=== PATIENT | female | born 1985 | race Caucasian/White ===

== ENCOUNTER 2017-11-27 04:31 | Inpatient (IN) | payer BC, SELFPAY ==
[2017-11-27] VITALS (14 sets, daily range): BP systolic 124–142; BP diastolic 74–94; PULSE 76–98; RESP 16–80; TEMP 36.6–37.3; O2SAT 95–100; BMI 40.1
[2017-11-27] MEDS: Lactated Ringers 1,000 ML 50 ML IV ×4 (05:15→14:04)
[2017-11-27 06:09] LABS: Hematocrit 37.7 % (37-47); Hemoglobin 12.6 g/dl (12.0-15.0); Mean Corp Hgb Conc 33.4 g/gl (32-36); Mean Corpuscular Hgb 30.4 pg (27.0-32.0); Mean Corpuscular Volume 91.1 fL (81-99); Mean Platelet Vol. 10.2 fl (6.2-12.0); Platelet Count 263 K/mm3 (150-450); RBC Distribution Width CV 14.8 % (11.6-14.6); RBC Distribution Width SD 49.1 fl (35.1-43.9); Red Blood Count 4.14 M/mm3 (4.2-5.4); White Blood Count 11.4 K/mm3 (4.4-11.0)
[2017-11-27 06:24] LABS: Scan Indicated on CBC? Y/N NO
[2017-11-27 07:34] LABS: Partial Thromboplast Time 28.8 Seconds (24.1-36.2)
[2017-11-27 07:42] LABS: AST(SGOT) 13 U/L (15-37); Alanine Aminotransfer ALT/SGPT 22 U/L (13-56); Creatinine, Serum 0.56 mg/dL (0.55-1.02); EST Glomerular Filtration Rate 133 mL/min (>60); Est Glom Filt Rate - Afr Amer 161 mL/min (>60); Estimated Creatinine Clearance 130.98 ml/min; Uric Acid 4.5 mg/dL (2.6-6.0)
[2017-11-27 08:23] LABS: Protein, Urine (Random) 22.3 mg/dL (<11.9); Protein:Creat Ratio 183 mg/g CRE (0-200)
[2017-11-27] MEDS: fentaNYL-bupivacaine (epidural) 100 ML BAG EPIDURAL ×2 (09:15→13:30)
--- NOTE | 2017-11-27 09:31 | PCM.HP.OB ---
History Date of Admission: 11/27/17 Final FIDEL: 11/22/17 Final FIDEL Source: US <20 weeks Gestational age: 40 Weeks and 5 Days History of this : 32-year-old 4 para 0030 presents at 40-5/7 weeks gestation with EDC of 317 2018 x 14 week ultrasound alone. She presents complaining of contractions starting yesterday, they got worse in the middle night she arrived to labor and delivery and was found to change from 4-5 cm. Has had no gross leaking of fluid she has had some bloody show. Headache, visual changes or epigastric pain. Past surgical history: D&C OB hx- 1 previous SAB, 2 terminations Medical history: Significant for morbid obesity with BMI of 40. Allergies No Known Allergies Allergy (Verified 11/27/17 03:58) Current Medications Acetaminophen (Tylenol) 325 - 650 mg PO Q4H PRN PRN PRN Reason: PAIN OR FEVER >100.4F Al Hydroxide/Mg Hydroxide (Mylanta Ii) 15 - 30 ml PO Q4H PRN PRN PRN Reason: INDIGESTION Calcium Gluconate () 1 gm IV X1 PRN PRN Reason: MAGNESIUM TOXICITY Citric Acid/Sodium Citrate (Bicitra) 30 ml PO UD PRN Hydralazine HCl (Apresoline Iv) 10 mg IV X1 PRN; Protocol PRN Reason: BP>160/110mmHg Lactated Ringer's () 1,000 mls @ 50 mls/hr IV .Q20H [facility] Last Admin: 11/27/17 06:47 Dose: 50 mls/hr Oxytocin/Sodium Chloride () 30 units in 500 mls @ 1 mls/hr IV .Q500H [facility] Labetalol HCl (Trandate) 20 - 40 mg IV Q10M PRN PRN; Protocol PRN Reason: BP>160/110mmHg Last Admin: 11/27/17 06:29 Dose: 20 mg Magnesium Sulfate (4 Gm/100 Ml) 2 gm IV X1 PRN PRN Reason: SEIZURE Midazolam HCl (Versed) 2 mg IV Q5M PRN PRN Reason: SEIZURE Nalbuphine HCl (Nubain) 5 - 10 mg IV Q3H PRN PRN PRN Reason: PAIN (4-10/10) Ondansetron HCl (Zofran) 4 mg IV Q8H PRN PRN PRN Reason: NAUSEA Promethazine HCl (Phenergan Iv) 6.25 - 12.5 mg IV Q4H PRN PRN; Protocol PRN Reason: IF NAUSEA PERSISTS Sodium Chloride () 5 - 15 ml IV UD [facility] Last Admin: 11/27/17 08:09 Dose: Not Given Smoking Status: Never smoker Alcohol: None Drug Use: none Number of Fetus(es): 1 Review of Systems Constitutional: Denies: Chills, Fever Eyes: Denies: Blurred vision Cardiovascular: Reports: Edema Respiratory: Denies: Shortness of Breath Skin: Reports: Rash Neurological: Denies: Headaches Physical Exam General: Alert, Cooperative, No apparent distress Cardiovascular: Regular rate Lungs: Normal air movement Abdomen: Soft, Non-Distended, Gravid, Appropriate for Gestational Age Extremities:: Other - edema2+ Estimated gestational size: Appropriate for gestational size Presentation: Cephalic Cervix Dilation (cm): 5 - , AROM w/ thick MSF Station: -1 Effacement (%): 90 Assessment/Plan 32-year-old 4 para 0 female at 40-5/7 weeks gestation in spontaneous labor 1. Estimated weight is less than 5000 g and pelvis clinically adequate to expect vaginal delivery. 2. May have epidural or nitrous oxide as needed for pain control. 3.Meconium stained fluid, pediatrics will be consulted for delivery attendance 4. Pitocin augmentation as needed
--- NOTE | 2017-11-27 09:38 | HP.PCM_ITS ---
History Date of Admission: 11/27/17 Final FIDEL: 11/22/17 Final FIDEL Source: US <20 weeks Gestational age: 40 Weeks and 5 Days History of this : 32-year-old 4 para 0030 presents at 40-5/7 weeks gestation with EDC of 317 2018 x 14 week ultrasound alone. She presents complaining of contractions starting yesterday, they got worse in the middle night she arrived to labor and delivery and was found to change from 4-5 cm. Has had no gross leaking of fluid she has had some bloody show. Headache, visual changes or epigastric pain. Past surgical history: D&C OB hx- 1 previous SAB, 2 terminations Medical history: Significant for morbid obesity with BMI of 40. Allergies No Known Allergies Allergy (Verified 11/27/17 03:58) Current Medications Acetaminophen (Tylenol) 325 - 650 mg PO Q4H PRN PRN PRN Reason: PAIN OR FEVER >100.4F Al Hydroxide/Mg Hydroxide (Mylanta Ii) 15 - 30 ml PO Q4H PRN PRN PRN Reason: INDIGESTION Calcium Gluconate () 1 gm IV X1 PRN PRN Reason: MAGNESIUM TOXICITY Citric Acid/Sodium Citrate (Bicitra) 30 ml PO UD PRN Hydralazine HCl (Apresoline Iv) 10 mg IV X1 PRN; Protocol PRN Reason: BP>160/110mmHg Lactated Ringer's () 1,000 mls @ 50 mls/hr IV .Q20H [facility] Last Admin: 11/27/17 06:47 Dose: 50 mls/hr Oxytocin/Sodium Chloride () 30 units in 500 mls @ 1 mls/hr IV .Q500H [facility] Labetalol HCl (Trandate) 20 - 40 mg IV Q10M PRN PRN; Protocol PRN Reason: BP>160/110mmHg Last Admin: 11/27/17 06:29 Dose: 20 mg Magnesium Sulfate (4 Gm/100 Ml) 2 gm IV X1 PRN PRN Reason: SEIZURE Midazolam HCl (Versed) 2 mg IV Q5M PRN PRN Reason: SEIZURE Nalbuphine HCl (Nubain) 5 - 10 mg IV Q3H PRN PRN PRN Reason: PAIN (4-10/10) Ondansetron HCl (Zofran) 4 mg IV Q8H PRN PRN PRN Reason: NAUSEA Promethazine HCl (Phenergan Iv) 6.25 - 12.5 mg IV Q4H PRN PRN; Protocol PRN Reason: IF NAUSEA PERSISTS Sodium Chloride () 5 - 15 ml IV UD [facility] Last Admin: 11/27/17 08:09 Dose: Not Given Smoking Status: Never smoker Alcohol: None Drug Use: none Number of Fetus(es): 1 Review of Systems Constitutional: Denies: Chills, Fever Eyes: Denies: Blurred vision Cardiovascular: Reports: Edema Respiratory: Denies: Shortness of Breath Skin: Reports: Rash Neurological: Denies: Headaches Physical Exam General: Alert, Cooperative, No apparent distress Cardiovascular: Regular rate Lungs: Normal air movement Abdomen: Soft, Non-Distended, Gravid, Appropriate for Gestational Age Extremities:: Other - edema2+ Estimated gestational size: Appropriate for gestational size Presentation: Cephalic Cervix Dilation (cm): 5 - , AROM w/ thick MSF Station: -1 Effacement (%): 90 Assessment/Plan 32-year-old 4 para 0 female at 40-5/7 weeks gestation in spontaneous labor 1. Estimated weight is less than 5000 g and pelvis clinically adequate to expect vaginal delivery. 2. May have epidural or nitrous oxide as needed for pain control. 3.Meconium stained fluid, pediatrics will be consulted for delivery attendance 4. Pitocin augmentation as needed
--- NOTE | 2017-11-27 09:51 | NURSING ---
after 3 attempts, Dr. Al in to place epidural. KParalissa, anesthesia student from [facility] also in
[2017-11-27] MEDS: Oxytocin 30 units/NS 500 ml 30 UNITS/500 ML IV.SOLN IV (09:58)
[2017-11-27] MEDS: Amnioinfusion- 0.9% NS 1,000 ML IV.SOLN. 100 ML INTRA-UTER (10:20)
[2017-11-27] MEDS: Sodium Citrate/Citric Acid 30 ML UDC PO (18:02)
[2017-11-27] MEDS: Cefazolin 2 GM in 0.9% Normal Saline 100 ML IV (18:15)
[2017-11-27] MEDS: Oxytocin 30 units/NS 500 ml 30 UNITS/500 ML IV.SOLN 167 UNITS IV (18:36)
[2017-11-27] MEDS: Ketorolac 30 MG/ML Syringe IV (18:45)
--- NOTE | 2017-11-27 19:12 | PCM.OB.CSR ---
Delivery Classification: SABRINA Final FIDEL: 11/22/17 Final FIDEL Source: US <20 weeks Gestational age: 40 Weeks and 5 Days Indications for : - - protractive active phase of labor, category 2 tracing remote from delivery Description of Procedure: Patient arrived in labor this morning. She had artificial rupture of membranes with return of thick meconium-stained fluid. Had inadequate contractions and Pitocin augmentation was initiated. However we had to intermittently stop the Pitocin due human resources assistant manager variable and late decelerations. Amnioinfusion was started for variable decelerations. She made minimal change from 930 until 5:30 PM and progressed from 4-5 cm to 6 cm. Significant edema of the cervix and significant caput. Position was ROT. I discussed with the patient options of continuing expectant management versus section. Attractive active labor phase and persistent category 2 tracing remote from delivery at this point, I recommended section. I did give the patient the option of waiting another hour or so and reevaluating as she was somewhat anxious about a . Patient desired to proceed with section at this time. The patient was taken to the operating room. She was prepped and draped in the dorsal supine position with a leftward tilt. A Pfannenstiel skin incision was made approximately 2 cm above the symphysis pubis and carried through to underlying layer fascia with the scalpel. The fascia was incised incised in the midline and extended laterally with the Patel scissors. The fascia was dissected off the rectus muscles with blunt and sharp dissection. The rectus muscles were in the midline and the peritoneum was entered bluntly. The peritoneal incision was stretched and the bladder blade was placed. The uterine incision was made in a low transverse fashion with the scalpel and extended superiorly and inferiorly with blunt dissection. The amniotic drains were ruptured with return of meconium-stained fluid.. The infant's head was brought to the incision in the flexed position and delivered without difficulty. The remainder of the was delivered with gentle traction and fundal pressure in the standard fashion. The mouth and nares were bulb suctioned. The cord was clamped and cut as the infant was stimulated. Cord clamping was delayed. The was handed off to the waiting nursing staff. The placenta was delivered with fundal massage and gentle traction in the standard fashion. The uterus was exteriorized and cleared of all clots and debris. The uterine incision was closed with #1 Vicryl in a running locked fashion. A second layer of the same suture was used in an imbricating fashion and the incision was examined for hemostasis. Urate suture was needed near the midline and in the right corner to obtain hemostasis Some bleeding along the medial edge with Bovie cauterized. Some Roger was placed over the incision and then excellent hemostasis was noted. The uterus was placed back into the peritoneal cavity and hemostasis was assured. The rectus muscles were examined and any bleeding was Bovie cauterized. The parietal peritoneum and rectus muscles were closed en bloc with an 0 Vicryl suture in a running standard fashion. The rectus fascia was examined and the bleeding was Bovie cauterized and the rectus fascia was closed with 0 PDS suture in a running standard fashion. The subcutaneous tissue was examining and any bleeding was Bovie cauterized. The subcutaneous tissue was reapproximated with 3-0 Vicryl suture. The skin was closed in a subcuticular fashion by the COMPRESSOR OPERATOR PORTABLE with me present in the labor and delivery suite. All sponge, lap, and needle counts were correct. The patient was taken to her room for recovery in a stable condition. Amniotic Membrane Rupture Type: Artificial Amniotic Fluid Description: Thick meconium Placenta Disposition: Sent to Pathology Drain: Oilvier to straight drain Fluids Replaced: 500 cc LR Cord Entanglement: Around neck x 1, loose Nuchal Cord Compression: Without compression Cord Vessel Description: 3 Vessels Esitmated Blood Loss (ml): 800 Gender: Female Delayed cord clamping: Yes Pre-op Antibiotic Given: - - zithromax 500 mg Complications: None - Admit VTE Documentation VTE Present on Admission: No VTE Mechan Device Prophylaxis: SCD's VTE Pharm Prophylaxis ordered?: Yes
[2017-11-27] MEDS: Lactated Ringers 1,000 ML 100 ML IV (19:20)
--- NOTE | 2017-11-27 19:21 | PLAC_PTH ---
PATIENT: MASOUD HINSON LOC: [facility] U#:[id number] AGE/SX: 32/F ROOM: WP007 RE11/27/[address]: Dr. Minnie Corral, MDDOB: 1985 BED: 1 DIS: 11/30/2017 SPEC #: [id number] RECD: 11/27/17 22:47 STATUS: ANÍBAL VIRY #: [id number] LOTTIE: 11/27/17 19:[address]: Minnie Corral DEPT: SURGICAL PATHOLOGY RECD BY: Daquan Hernandez ENTERED: 11/28/17 09:03 SP TYPE: PLACENTA OTHR DR: No Primary Care Phys Tissues: Placenta, NOS Procedures: Surgery Specimen Level V HEADER OPERATION: Primary section PRE-OP DIAGNOSIS: meconium stained fluid TISSUE SUBMITTED: Placenta MICROSCOPIC DIAGNOSIS Placenta: Placental disc - third trimester placenta (574 gm). - Focal area of intraparenchymal hemorrhage (1.5 cm in greatest dimension). - Focal mild acute vasculitis of subamniotic blood vessels. Membranes ? acute chorioamnionitis. Umbilical cord - three blood vessels and acute funisitis. SJ:nicki 12/02/17 MICROSCOPIC DESCRIPTION Slides are reviewed. GROSS DESCRIPTION SPECIMEN: PLACENTA / CLINICAL INFORMATION: A. Weight: 3.196 kg B. Gestational Age: 40 weeks C. Sex: Female PLACENTAL WEIGHT (POST FIXATION): 574 gm PLACENTAL DIMENSIONS: 18 x 16 x 3.5 cm PLACENTAL SHAPE: Usual ovoid PLACENTAL WEIGHT FOR GESTATIONAL AGE: Within 10-99th percentile MEMBRANES - Present A. Insertion: Marginal B. Site of rupture from edge: 5 cm from edge of placental disc. They are partly fragmented. A detached fragment of the membrane is also present in the container. C. Color of membrane: Das, mucoidy D. Abnormalities: None UMBILICAL CORD - Present A. Color: Das-rooney B. Insertion: Marginal C. Length: 33 cm D. Diameter: 1 to 1.3 cm E. Number of vessels: Three F. Abnormalities: None PLACENTAL DISC - Present A. Color of surface: Das-rooney B. surface abnormalities: None C. Maternal cotyledons: Intact with minimal tears D. Attached retro placental clot: No clot E. Cut surface: Dark red and spongy F. Lesions: Serial sections reveal a das, hemorrhagic lesion measuring 1.5 cm in greatest dimension. G. Separate clot: Absent SECTIONS SUBMITTED: 1. Membrane roll 2. Cord, maternal end 3. Cord, end 4. Placental disc, and maternal surfaces, lesion 5. Placental disc, and maternal surfaces 6. Placental disc, and maternal surfaces CYNTHIA:nicki 12/01/17 TC:2 CPT: 67975
--- NOTE | 2017-11-27 20:33 | NURSING ---
Verified with brett that pt. will need RhoGAM work-up - will draw in am with CBC
[2017-11-27] MEDS: Labetalol 100 MG Tablet PO (23:20)
[2017-11-27] MEDS: Senna/Docusate Sodium 1 Tablet PO (23:21)
[2017-11-28] VITALS (15 sets, daily range): BP systolic 123–135; BP diastolic 77–88; PULSE 80–110; RESP 16–20; TEMP 36.7–37.3; O2SAT 92–100
[2017-11-28] MEDS: Ketorolac 30 MG/ML Syringe IV ×5 (00:26→23:28)
[2017-11-28] MEDS: Lactated Ringers 1,000 ML 100 ML IV ×2 (01:48→11:42)
[2017-11-28 05:07] LABS: Hematocrit 32.5 % (37-47); Mean Corp Hgb Conc 33.8 g/gl (32-36); Mean Corpuscular Hgb 31.3 pg (27.0-32.0); Mean Corpuscular Volume 92.6 fL (81-99); Mean Platelet Vol. 9.9 fl (6.2-12.0); Platelet Count 189 K/mm3 (150-450); RBC Distribution Width CV 14.9 % (11.6-14.6); RBC Distribution Width SD 49.1 fl (35.1-43.9); Red Blood Count 3.51 M/mm3 (4.2-5.4); White Blood Count 14.4 K/mm3 (4.4-11.0)
[2017-11-28 05:09] LABS: Scan Indicated on CBC? Y/N NO
[2017-11-28] MEDS: Enoxaparin 40 MG/0.4 ML Syringe SC (06:03)
--- NOTE | 2017-11-28 07:02 | NURSING ---
This RN agrees with all charting done by Terrance student nurse.
--- NOTE | 2017-11-28 09:06 | PCM.PN.OB ---
Subjective: pain well controlled, average lochia, no N/V, denies LIU or visual changes or epigastric pain - Physical Exam General: Alert, Cooperative, No apparent distress Abdomen: Soft, Distended - mildly, softly1, Tender - appropriately Extremities: Edema - +, - - 2+ DTRs, no clonus Skin: Incision - bandage clean, dry and intact Vital Signs Temp Pulse Resp BP Pulse Ox 98.1 F 98 16 124/82 H 97 11/28/17 08:00 11/28/17 08:00 11/28/17 08:00 11/28/17 08:00 11/28/17 08:00 Oxygen Delivery Method Room Air Weight: 109.316 kg Body Mass Index (BMI) 40.1 Intake and Output for Last 24 Hours 11/26/17 11/27/17 11/28/17 23:59 23:59 23:59 Intake Total 5340 / 5340 1348 / 1348 Output Total 1600 / 1600 550 / 550 Balance 3740 / 3740 798 / 798 Laboratory Tests Past 24 Hrs 11/28/17 11/28/17 04:50 04:50 WBC 14.4 H RBC 3.51 L Hgb 11.0 L Hct 32.5 L MCV 92.6 MCH 31.3 MCHC 33.8 RDW 14.9 H RDW Differential 49.1 H Plt Count 189 MPV 9.9 Screen NEGATIVE Baby's Blood Type O POSITIVE Baby's MIRA NEGATIVE Medical Necessity - Tobacco Use Smoking Status: Never smoker Assessment/Plan POD#1 doing well routine care and doing well BP stable, no evidence of preeclampsia, d/c labetalol in am
--- NOTE | 2017-11-28 09:12 | DCINST_ITS ---
Discharge Diet: No Restrictions Discharge Activity: Return to Normal Activity, May Not Drive - for 2 weeks, May not drive while taking narcotic pain medications., May Shower, May Take a Tub Bath - in 7 days. May resume sexual activity in: 4-6 weeks Lifting Restrictions: 20 pounds Additional Activity Instructions:: Nothing in the vagina for 4-6 weeks. You may return to work/school in 6 weeks. Call your doctor if your incision/area has: Continuous Slow Oozing, Sudden Increased Bleeding, Increased Pain/ Swelling, Increased Redness, Foul Smelling Discharge Call your doctor if you observe: Fever of 101 or Higher, Using more than one pad per hour - for 2 hours Suture Line Care: Avoid Pulling/Pushing, Avoid Pinching/Bending Cleanse incision/area with: Keep Dressing Clean & Dry Additional Instructions: If you experience any of the following, contact your healthcare provider. * Bleeding that soaks a pad every hour for 2 hours * Fever 100.4 or higher * Unrelieved incision or abdominal pain * Swelling, redness, discharge or bleeding from your incision or episiotomy site * Your incision begins to separate * Problems urinating (including inability to urinate or burning while urinating) . * Visual changes * Severe headache * Flu-like symptoms * Pain or redness in one of both of your breasts * Pain, warmth, tenderness or swelling in your legs, especially the calf area * Frequent nausea and vomiting * Symptoms of depression or anxiety If you experience any of the following, call 911 or go to the nearest Emergency Room. * Chest pain * Problems breathing * Seizure activity * Partial or complete paralysis of a body part, slurred speech, weakness or drooping of the face, or a sudden inability to walk or hold your balance Allergies/Adverse Reactions: Allergies No Known Allergies Allergy (Verified 11/27/17 03:58) Medications to take at Discharge Vit No.130/Iron/FA [ Tablet] 1 tablet PO DAILY 11/27/17 Ibuprofen [Motrin] 600 mg PO Q6H PRN #60 tab 11/28/17 Oxycodone HCl/Acetaminophen [Percocet 5/325] 1 - 2 tablet PO Q6H PRN PRN 7 Days #28 tablet 11/28/17 The following prescriptions were given: Oxycodone HCl/Acetaminophen [Percocet 5/325] 1 - 2 tablet PO Q6H PRN PRN 7 Days #28 tablet PRN Reason: Pain Ibuprofen [Motrin] 600 mg PO Q6H PRN #60 tab PRN Reason: Pain Orders to be completed after discharge: Electric breast pump Location: None Selected Follow-Up: Call to make an appointment with your doctor for an incision check in 1-2 weeks. You will also need a 6 week post- follow up appointment. Please Follow Up With: Shanika Avalos MD - Call to make an appointment for an incision check in 1-2 [phone] When: You will need a post check in our office in 6 weeks. Primary Care Physician: Care Physician,No Primary [Primary Care Provider] -
[2017-11-28] MEDS: Labetalol 100 MG Tablet PO ×2 (10:25→21:20)
[2017-11-28] MEDS: Senna/Docusate Sodium 1 Tablet PO ×2 (10:25→21:20)
[2017-11-28] MEDS: 0.9% Saline Lock 10 ML Syringe IV ×2 (18:00→23:28)
[2017-11-28] MEDS: oxyCODONE 5 MG Tablet PO (18:30)
[2017-11-29 01:07] VITALS: BP 135/86; PULSE 80; RESP 16; TEMP 36.5; O2SAT 99
[2017-11-29] MEDS: 0.9% Saline Lock 10 ML Syringe IV (06:07)
[2017-11-29] MEDS: Enoxaparin 40 MG/0.4 ML Syringe SC (06:07)
[2017-11-29] MEDS: Ketorolac 30 MG/ML Syringe IV (06:07)
[2017-11-29 07:40] VITALS: BP 126/80; PULSE 91; RESP 16; TEMP 36.4; O2SAT 96
[2017-11-29 09:37] VITALS: BP 119/80
[2017-11-29] MEDS: Senna/Docusate Sodium 1 Tablet PO (09:39)
[2017-11-29] MEDS: oxyCODONE 5 MG Tablet PO (09:40)
[2017-11-29] MEDS: Labetalol 100 MG Tablet PO ×2 (09:55→22:02)
--- NOTE | 2017-11-29 13:55 | PCM.PN.BLA ---
Progress Note S: Patient was sitting up in rocking chair infant at this time. Patient denies any any breakthrough incisional pain and feels like her pain is well controlled. Patient's family is in the room providing support. O: VSS, Afebrile. H/H from 11/28/ = 11.0/32.5 Breasts filling, no cracks or blisters on nipples noted. No breast erythema noted. Abdomen NT x 4 quadrants, Dressing Dry and Intact Trace pedal edema, non-pitting, calf tenderness scant rubra lochia A: 32 y/o POD #2, s/p LTCS for arrest of dilation, Normal Course, P: 1) Continue present management and PP orders at this time 2) Anticipate discharge to home tomorrow Celina Connell CNM
[2017-11-29 13:58] VITALS: BP 135/87; PULSE 101; RESP 16; TEMP 36.4; O2SAT 97
[2017-11-29] MEDS: Naproxen 250 MG Tablet PO (17:48)
[2017-11-29 20:30] VITALS: BP 126/85; PULSE 107; RESP 18; TEMP 37.3; O2SAT 97
[2017-11-30 01:50] VITALS: BP 127/88; PULSE 85; RESP 16; TEMP 36.4; O2SAT 97
[2017-11-30] MEDS: Enoxaparin 40 MG/0.4 ML Syringe SC (06:30)
[2017-11-30 07:45] VITALS: BP 135/83; PULSE 78; RESP 18; TEMP 36.3; O2SAT 97
[2017-11-30] MEDS: Naproxen 250 MG Tablet PO (08:10)
[2017-11-30 10:10] VITALS: BP 128/83
[2017-11-30] MEDS: Labetalol 100 MG Tablet PO (10:11)
--- NOTE | 2017-11-30 10:22 | PCM.PN.BLA ---
Progress Note S: Patient sitting up in bed, finishing breakfast. Patient reports she was up to shower yesterday. No problems or concerns noted by patient. Per nursing staff, patient has continued to take Labetalol 100mg PO BID. Patient's blood pressures upper normal range while on Labetalol medication. O: BP = 120-134/80s, remainder of VSS WNL. Patient remains afebrile. Nipples without cracks, blisters or any erythema. +colostrum expressed Abdomen NT x 4 quadrants, dressing dry and intact. No further blood or exudate noted on dressing +2/4 reflexes in LE, no edema, negative calf tenderness to palpation scant rubra lochia A: 32 y/o s/p LTCS without complications for arrest of dilation, POD#3, Normal course, Controlled HTN P:1) Discharge patient to home on Labetalol 100mg PO BID #30 pills, no refills. Will assess patient at incision check visit and make decision to D/C Labetalol at that time if patient blood pressures remain normotensive. 2) Blood pressure with incision check in 1-2 weeks 3) Anticipatory PP health teaching done 4) 6 week PP visit with [facility] Celina Connell CNM
--- NOTE | 2017-11-30 10:30 | PN_ITS ---
Progress Note S: Patient sitting up in bed, finishing breakfast. Patient reports she was up to shower yesterday. No problems or concerns noted by patient. Per nursing staff , patient has continued to take Labetalol 100mg PO BID. Patient's blood pressures upper normal range while on Labetalol medication. O: BP = 120-134/80s, remainder of VSS WNL. Patient remains afebrile. Nipples without cracks, blisters or any erythema. +colostrum expressed Abdomen NT x 4 quadrants, dressing dry and intact. No further blood or exudate noted on dressing +2/4 reflexes in LE, no edema, negative calf tenderness to palpation scant rubra lochia A: 32 y/o s/p LTCS without complications for arrest of dilation, POD#3, Normal course, Controlled HTN P:1) Discharge patient to home on Labetalol 100mg PO BID #30 pills, no refills. Will assess patient at incision check visit and make decision to D/C Labetalol at that time if patient blood pressures remain normotensive. 2) Blood pressure with incision check in 1-2 weeks 3) Anticipatory PP health teaching done 4) 6 week PP visit with [facility] Celina Connell CNM
--- NOTE | 2017-11-30 10:31 | PCM.DC.SUM ---
Discharge Date and Diagnosis - Problem List Patient Problems: Active and Suspected Problems Hypertension affecting , delivered, current hospitalization (Acute) Date of Admission: 11/27/17 Date of Discharge: 11/30/17 - Primary Discharge Diagnosis POD #3 s/p LTCS for Arrest of Dilation in Labor, Hypertension - controlled, Normal Course Hospital Course and Treatment Imaging Results: none None Operations: - - Ceasrean Section Procedures: None Summary of Care Provided: The patient is a 32 year old F who presented in labor on 11/27/17. Patient progressed slowly and decision for primary LTCS made secondary to arrest of dilation, category II FHT and meconium stained fluid. During course of labor, patient was found to have elevated blood pressures. Pre-Eclampsia was ruled out but patient received course of labetalol for stabilize blood pressures. section surgery was done without complication. Patient to be discharged today following a stable and normal course. Discharge Diet: No Restrictions Discharge Activity: Return to Normal Activity, May Not Drive - for 2 weeks, May not drive while taking narcotic pain medications., May Shower, May Take a Tub Bath - in 7 days. May resume sexual activity in: 4-6 weeks Additional Activity Instructions:: Nothing in the vagina for 4-6 weeks. You may return to work/school in 6 weeks. Call your doctor if your incision/area has: Continuous Slow Oozing, Sudden Increased Bleeding, Increased Pain/ Swelling, Increased Redness, Foul Smelling Discharge Call your doctor if you observe: Fever of 101 or Higher, Using more than one pad per hour - for 2 hours Suture Line Care: Avoid Pulling/Pushing, Avoid Pinching/Bending Cleanse incision/area with: Keep Dressing Clean & Dry Home Medications: Medications to take at Discharge Vit No.130/Iron/FA [ Tablet] 1 tablet PO DAILY 11/27/17 Ibuprofen [Motrin] 600 mg PO Q6H PRN #60 tab 11/28/17 Oxycodone HCl/Acetaminophen [Percocet 5/325] 1 - 2 tablet PO Q6H PRN PRN 7 Days #28 tablet 11/28/17 Labetalol [Trandate (Beta Margarita)] 100 mg PO BID #30 tab 11/30/17 Following Prescrptions Were Given to Patient: Oxycodone HCl/Acetaminophen [Percocet 5/325] 1 - 2 tablet PO Q6H PRN PRN 7 Days #28 tablet PRN Reason: Pain Labetalol [Trandate (Beta Margarita)] 100 mg PO BID #30 tab Ibuprofen [Motrin] 600 mg PO Q6H PRN #60 tab PRN Reason: Pain Other Amb Orders: Electric breast pump Location: None Selected Primary Care Physician: Care Physician,No Primary [Primary Care Provider] - Please Follow Up With: Shanika Avalos MD - Call to make an appointment for an incision check in 1-2 [phone] When: You will need a post check in our office in 6 weeks. Please Follow Up With: Shanika Avalos MD - Call to make appointment When: 1-2 weeks for BP and Incision Check Disposition: Home Patient Condition:: Good Medical Necessity - Tobacco Use Smoking Status: Never smoker Tobacco Use: Non-smoker Meaningful Use Info Meaningful Use Diagnoses (Choose all that apply): None applicable
[2017-11-30 13:35] VITALS: BP 133/93; PULSE 93; RESP 18; TEMP 36.8; O2SAT 99
== END 2017-11-30 13:55 | disposition home or self-care (01) | DRG 765 ==
LOC: WPOUT 04:34
PROVIDERS: Obstetrics & Gynecology; Admitting Provider Obstetrics & Gynecology; Visit Provider Obstetrics & Gynecology
DX: O62.0 Primary inadequate contractions (principal); O76 Abnormality in fetal heart rate and rhythm complicating labor and delivery; Z68.41 Body mass index [BMI] 40.0-44.9, adult; E66.01 Morbid (severe) obesity due to excess calories; Z37.0 Single live birth; O77.0 Labor and delivery complicated by meconium in amniotic fluid; O26.23 Pregnancy care for patient with recurrent pregnancy loss, third trimester; O13.4 Gestational [pregnancy-induced] hypertension without significant proteinuria, complicating childbirth; O99.214 Obesity complicating childbirth; Z3A.40 40 weeks gestation of pregnancy
CPT/HCPCS: 59025; 59050; 82565; 82570; 84156; 84450; 84460; 84550; 85027; 85461; 85610; 85730; 86850; 86900; 88307; 90384; 99218; J7030; J7120; A4216; G0378; J2790

== ENCOUNTER 2017-12-03 13:37 | Emergency (ER) | payer BC, SELFPAY ==
[2017-12-03 13:38] VITALS: BP 189/116; PULSE 50; RESP 14; TEMP 36.5; O2SAT 98; BMI 35.5
[2017-12-03 13:44] VITALS: BP 189/116; PULSE 49; RESP 20; O2SAT 99
--- NOTE | 2017-12-03 13:44 | CT_ITS ---
STUDY: CT BRAIN WITHOUT CONTRAST REASON FOR EXAM: Female, 32 years old. Severe headache. . RADIATION DOSAGE (If Supplied By Facility): CTDIvol = ( 44.99 ) mGy, DLP = ( 779.24 ) mGycm TECHNIQUE: Transaxial CT imaging of the brain was performed without administration of intravenous contrast material. Coronal and sagittal reconstructions were performed. Individualized dose optimization techniques were used for this CT. COMPARISON: None. FINDINGS: Normal soft tissue structures. Normal calvarium. Small acute subarachnoid hemorrhage in the cerebral sulci of both cerebral hemispheres. There is a larger subarachnoid hemorrhage in the left inferior frontal lobe sulcus measuring 2.1 x 1.5 cm. The subarachnoid location is best appreciated the coronal and sagittal reconstructed images. No intraparenchymal hemorrhagic foci. No midline shift. The ventricles and cisterns are within normal limits. Normal white matter tracts of the cerebral hemispheres. Normal basal ganglia and thalami. Normal brainstem. Normal cerebellum. There are no findings of an acute ischemic infarction. Normal visualized paranasal sinuses. CT/Brain/Head without Contrast IMPRESSION: 1. Acute subarachnoid hemorrhage in both cerebral hemispheric sulci. Etiology of intracranial bleeding is unknown at this time. 2. No CT evidence of intraparenchymal hemorrhage. 3. Normal ventricles and cisterns. 4. No communicating or noncommunicating hydrocephalus. N.B. : The above information has been verbally conveyed by Zen Davis MD to Alvarez Klein, Referring Physician, on 12/03/2017 14:18:38 (ET). Electronically Signed: Zen Davis MD at 14:16 EDT , Service support , N.B. : The above information has been verbally conveyed by Zen Davis MD to Alvarez Klein, Referring Physician, on 12/03/2017 14:18:38 (ET).
[2017-12-03 13:56] LABS: Absolute Lymphocyte Count 1.18 X10^3/ul (0.83-4.51); Absolute Neutrophil Count 9.4 X10^3/uL (2.0-7.7); Basophil# 0.02 X10^3/uL; Basophil% 0.2 % (0-1); Eosinophil# 0.03 X10^3/uL; Eosinophils% 0.3 % (0-5); Hematocrit 34.6 % (37-47); Hemoglobin 11.4 g/dl (12.0-15.0); Lymphocyte # 1.18 X10^3/ul (4.0); Lymphocyte % 10.7 % (19-41); Mean Corp Hgb Conc 32.9 g/gl (32-36); Mean Corpuscular Hgb 29.8 pg (27.0-32.0); Mean Corpuscular Volume 90.6 fL (81-99); Mean Platelet Vol. 9.3 fl (6.2-12.0); Monocyte# 0.25 X10^3/uL; Monocyte% 2.3 % (0-10); Neutrophil # 9.36 X10^3/uL (2.7-7.7); Neutrophil % 84.8 % (47-70); POSITIVE COUNT NO; POSITIVE DIFFERENTIAL NO; POSITIVE MORPHOLOGY NO; Platelet Count 288 K/mm3 (150-450); RBC Distribution Width CV 14.1 % (11.6-14.6); RBC Distribution Width SD 46.2 fl (35.1-43.9); Red Blood Count 3.82 M/mm3 (4.2-5.4)
[2017-12-03 14:02] LABS: Prothrombin Time (Protime)PT. 13.1 SECONDS (11.7-14.9)
[2017-12-03] MEDS: Rocuronium Bromide 50 MG/5 ML Vial 100 MG IV (14:10)
[2017-12-03 14:11] LABS: ALB/GLOB Ratio 0.6 RATIO (0.9-2.4); AST(SGOT) 54 U/L (15-37); Alanine Aminotransfer ALT/SGPT 69 U/L (13-56); Albumin, Serum 2.9 g/dL (3.2-5.0); Alkaline Phosphatase 174 U/L (45-117); Anion Gap 11 (5-15); BUN 19 mg/dL (7-18); BUN/Creat Ratio 25.8 RATIO (10-20); Calcium,Total 8.8 mg/dL (8.5-10.1); Chloride 106 mmol/L (98-107); Creatinine, Serum 0.74 mg/dL (0.55-1.02); EST Glomerular Filtration Rate 98 mL/min (>60); Est Glom Filt Rate - Afr Amer 118 mL/min (>60); Estimated Creatinine Clearance 111.12 ml/min; Globulin 4.6 g/dL (2.2-4.2); Glucose 99 mg/dL (74-106); Potassium 3.9 mmol/L (3.5-5.1); Protein, Total 7.5 g/dL (6.4-8.2); Sodium Level 141 mmol/L (136-145); Uric Acid 5.9 mg/dL (2.6-6.0)
[2017-12-03] MEDS: Propofol 10MG/Ml 1,000 MG/100 ML Bottle 3.18 MG CONT INF (14:21)
[2017-12-03] MEDS: Propofol 200 MG/20 ML Vial 100 MG IV BOLUS (14:24)
--- NOTE | 2017-12-03 14:37 | ED.VISSUMM ---
- ER Visit Summary Date of Service: 12/03/17 Chief Complaint: Severe headache History of Present Illness: The patient is a 32 F who is day 6 postop for first delivery. When she arrived she was screaming. She would look at me when asked questions but there was no verbal response. She did follow simple commands of movement of her extremities. History and physical were limited second of the fact that she would not or was unable to speak holding her head and screaming. Heart is slow. Lungs are clear to auscultation. She is hyperreflexic with 3-5 beats of clonus at the ankles. Equivocal Babinski sign on the right. Physical Examination: Patient is hypertensive and bradycardic consistent with a [place] response. Initial blood pressure was 189/136. Heart rate was 49. Pupils are 4 mm reactive. Uvula midline. Tongue does not deviate with protrusion. Neck is not stiff however she has pain with flexion. Heart is slow without murmur, gallop or rub. Lungs are clear to auscultation. Abdomen is soft nontender. She does have discomfort along the Pfannenstiel incision site. There is no evidence of infection. There is an equivocal Babinski sign on the right. She is hyperreflexic with 3-5 beats of clonus bilaterally Test Results: CT per my interpretation reveals a left frontal intracranial bleed and a subarachnoid hemorrhage. CBC is remarkable for mild anemia with an H&H 11.4 and 34.6. Electro panel is unremarkable. Alk phos is elevated, 174. ALT and AST are 6954 which are slightly elevated. Coags normal. Uric acid negative. Urine pending. KG reveals a sinus rhythm rate of 82 not 162 per computer. There is evidence of low voltage and she has diffuse nonspecific ST-T wave changes consistent with increased ICP/intracranial bleed okay. Emergency Department Course and Treatment: Cintas [place] response with severe headache concerned encephalopathic from -induced hypertension/ preeclampsia. Need to rule out hemorrhage since she has a Babinski sign on the right. Appropriate blood work was obtained. I was informed prior to completion of CAT scan there is evidence of hemorrhage. The CAT scan was reviewed by me. Pharmacy was called for a Cardene drip to be initiated 5 mg and a magnesium bolus and drip. Patient became more agitated and was not directable and concerned she was encephalopathic from her elevated blood pressure and intracranial bleed. Furthermore concerned with her thrashing screaming for increased intracranial pressure. Because of worsening of her mental status and concern for increased ICP patient was sedated in preparation for rapid sequence intubation with 20 mg of etomidate. She received 100 mg of rocuronium and was easily orotracheal intubated with a 7.5 endotracheal tube without difficulty. There is appropriate color change on capnometer. Breath sounds are noted bilaterally. Only one I be was available. A central line was placed. Patient was prepped draped sterile manner with every member in the room wearing a cap and mask. Appropriate sterile procedure was followed. The right subclavian vessel was cannulated successfully on first attempt on the way again. Using Seldinger technique 7.5 [place] triple-lumen was placed. Blood was aspirated from all 3 ports. She was placed on a propofol drip, magnesium drip and the third line was used for infusion of meds if needed. She presently has a Cardene drip running through her peripheral line. Orogastric tube was placed per nursing staff. Olivier was placed per nursing staff. Chest x-ray was obtained to confirm placement of endotracheal tube, triple lumen and OG. Treatment Plan: Mother requested transfer to [facility]. Spoke with transfer nurse. Spoke with neurosurgery. Has been accepted by ICU. [facility] ground unit was contacted since they are unable to fly and based on medications/drips running local ground crew unable to transport. Disposition: Transfer to ICU [facility] T2, condition critical Impression: 1. Hypertensive emergency/encephalitis 2. preeclampsia/eclampsia 3. [place] response secondary to intracranial bleed 4. Subarachnoid hemorrhage and left frontal intraparenchymal bleed This note was generated with [employer] dictation software. It may contain incorrect words, spelling, and punctuation that were not noted in review of the chart prior to signing ED Disposition - Plan for ED Patient: Chief Complaint: Headache Referrals: Care Physician,No Primary [Primary Care Provider] -
[2017-12-03 14:40] LABS: Bacteria 0 SEEN /hpf (None Seen); Mucous, Urine 0 SEEN /hpf (<or=2+); Squamous Epithelial Cells - UA 0 SEEN /hpf (5-10); White Blood Cells 0 SEEN /hpf (0-5)
--- NOTE | 2017-12-03 14:40 | RAD_ITS ---
STUDY: X-RAY CHEST REASON FOR EXAM: Female, 32 years old. Endotracheal tube placement, central line placement and feeding tube placement. Check positions. TECHNIQUE: Single AP supine portable view of the chest and upper abdomen. COMPARISON: None available. FINDINGS: Endotracheal tube noted, inferior tip is approximately 3.8 cm above the inferior saman. Right subclavian central venous catheter noted, inferior tip overlies SVC and right superior-lateral heart shadow likely near the atriocaval junction. Feeding tube noted, inferior tip is just seen below the left diaphragm projecting over the left upper quadrant of the abdomen. The lungs show mild suboptimal inspiration with mild right greater than left elevated diaphragm seen. Diffuse heterogeneous opacities are seen in the right greater than left perihilar/basal regions, may represent atelectasis versus pneumonia. Minimal diffuse opacification of the left lung base laterally, may represent pleural fluid and/or atelectasis. No large gross pneumothorax suggested. Upper limits normal size heart noted for projection. Normal mediastinum and kumar. Obscured bilateral pulmonary arteries. Normal visualized aortic knob and descending thoracic aorta. Normal visualized thoracic spine. Normal visualized ribs, clavicles, and shoulders. There is no demonstrated abnormality of the visualized soft tissue structures of the upper abdomen. No subdiaphragmatic free air seen grossly. Numerous EKG wires overlie chest. RAD/Chest 1 View (Portable) IMPRESSION: Well positioned life support apparatus as described. Heterogeneous bihilar/bibasal lung opacities, may represent atelectasis and/or pneumonia. Clinical correlation recommended. Mild left lung base pleural fluid and atelectasis suggested. No overt cardiac failure identified. Electronically Signed: Ankit Efe, at 15:10 EDT Tel , Service support ,
--- NOTE | 2017-12-03 14:40 | RAD_ITS ---
STUDY: X-RAY - CHEST AND ABDOMEN, Single View REASON FOR EXAM: Female, 32 years old. Endotracheal tube placement, central line placement and feeding tube placement, check positions. TECHNIQUE: Single AP portable supine chest image obtained. COMPARISON: No prior chest imaging available FINDINGS: Endotracheal tube noted, inferior tip is approximate 3.4 cm above the inferior saman. Feeding tube noted, inferior tip projects over the left upper quadrant abdomen renal shadow. Right subclavian central venous catheter noted, inferior tip overlies right superior-lateral heart shadow, likely near the atrial caval junction. Lungs show mild exhalation phase with bibasal and bihilar heterogeneous opacities, may represent atelectasis and/or pneumonia. There is no demonstrated free abdominal air but sensitivity for detection of free intraperitoneal air is decreased due to supine positioning. Visualized upper abdomen shows paucity of bowel air. No finding of air-filled on small bowel loop or abnormal air-fluid levels noted. Normal visualized soft tissue structures. Normal visualized osseous structures. RAD/Abdomen Single View (Portable) IMPRESSION: Life-support apparatus appear well position as described. Heterogeneous bihilar/bibasal lung opacities, may represent atelectasis and or pneumonia. Clinical correlation recommended. Mild left lung base pleural fluid and atelectasis suggested. Nonobstructed nonspecific visualized intestinal gas pattern as described above. Clinical correlation recommended. Electronically Signed: Ankit Wilks, at 15:55 EDT Tel , Service support ,
[2017-12-03 14:41] VITALS: BP 146/96; PULSE 105; RESP 23; O2SAT 100
[2017-12-03 14:43] LABS: Color, Urine Yellow (Yellow); Glucose, Dipstick Normal (Normal); Ketone-Dipstick 50 mg/dl (Negative); Leukocyte Esterase-Dipstick Negative /ul (Negative); Nitrite-Dipstick Negative (Negative); Occult Blood-Urine 25 /ul (Negative); Protein-Dipstick 100 mg/dl (Negative); Urine Bilirubin Dipstick Negative (Negative); Urine Clarity Clear (Clear); Urine Urobilinogen Normal (Normal)
[2017-12-03 14:46] VITALS: BP 148/99; PULSE 109; RESP 18; O2SAT 98
--- NOTE | 2017-12-03 14:49 | ED.DCSUM_ITS ---
- ER Visit Summary Date of Service: 12/03/17 Chief Complaint: Severe headache History of Present Illness: The patient is a 32 F who is day 6 postop for first delivery. When she arrived she was screaming. She would look at me when asked questions but there was no verbal response. She did follow simple commands of movement of her extremities. History and physical were limited second of the fact that she would not or was unable to speak holding her head and screaming. Heart is slow. Lungs are clear to auscultation. She is hyperreflexic with 3-5 beats of clonus at the ankles. Equivocal Babinski sign on the right. Physical Examination: Patient is hypertensive and bradycardic consistent with a [place] response. Initial blood pressure was 189/136. Heart rate was 49. Pupils are 4 mm reactive. Uvula midline. Tongue does not deviate with protrusion. Neck is not stiff however she has pain with flexion. Heart is slow without murmur, gallop or rub. Lungs are clear to auscultation. Abdomen is soft nontender. She does have discomfort along the Pfannenstiel incision site. There is no evidence of infection. There is an equivocal Babinski sign on the right. She is hyperreflexic with 3-5 beats of clonus bilaterally Test Results: CT per my interpretation reveals a left frontal intracranial bleed and a subarachnoid hemorrhage. CBC is remarkable for mild anemia with an H&H 11.4 and 34.6. Electro panel is unremarkable. Alk phos is elevated, 174. ALT and AST are 6954 which are slightly elevated. Coags normal. Uric acid negative. Urine pending. KG reveals a sinus rhythm rate of 82 not 162 per computer. There is evidence of low voltage and she has diffuse nonspecific ST- T wave changes consistent with increased ICP/intracranial bleed okay. Emergency Department Course and Treatment: Cintas [place] response with severe headache concerned encephalopathic from -induced hypertension/ preeclampsia. Need to rule out hemorrhage since she has a Babinski sign on the right. Appropriate blood work was obtained. I was informed prior to completion of CAT scan there is evidence of hemorrhage. The CAT scan was reviewed by me. Pharmacy was called for a Cardene drip to be initiated 5 mg and a magnesium bolus and drip. Patient became more agitated and was not directable and concerned she was encephalopathic from her elevated blood pressure and intracranial bleed. Furthermore concerned with her thrashing screaming for increased intracranial pressure. Because of worsening of her mental status and concern for increased ICP patient was sedated in preparation for rapid sequence intubation with 20 mg of etomidate. She received 100 mg of rocuronium and was easily orotracheal intubated with a 7.5 endotracheal tube without difficulty. There is appropriate color change on capnometer. Breath sounds are noted bilaterally. Only one I be was available. A central line was placed. Patient was prepped draped sterile manner with every member in the room wearing a cap and mask. Appropriate sterile procedure was followed. The right subclavian vessel was cannulated successfully on first attempt on the way again. Using Seldinger technique 7.5 [place] triple-lumen was placed. Blood was aspirated from all 3 ports. She was placed on a propofol drip, magnesium drip and the third line was used for infusion of meds if needed. She presently has a Cardene drip running through her peripheral line. Orogastric tube was placed per nursing staff. Olivier was placed per nursing staff. Chest x-ray was obtained to confirm placement of endotracheal tube, triple lumen and OG. Treatment Plan: Mother requested transfer to [facility]. Spoke with transfer nurse. Spoke with neurosurgery. Has been accepted by ICU. [facility] ground unit was contacted since they are unable to fly and based on medications/drips running local ground crew unable to transport. Disposition: Transfer to ICU [facility] T2, condition critical Impression: 1. Hypertensive emergency/encephalitis 2. preeclampsia/eclampsia 3. [place] response secondary to intracranial bleed 4. Subarachnoid hemorrhage and left frontal intraparenchymal bleed This note was generated with [employer] (acquired by [employer] in 2014) dictation software. It may contain incorrect words, spelling, and punctuation that were not noted in review of the chart prior to signing ED Disposition - Plan for ED Patient: Chief Complaint: Headache Referrals: Care Physician,No Primary [Primary Care Provider] -
[2017-12-03 14:52] VITALS: BP 148/99
[2017-12-03 14:52] LABS: Magnesium 1.7 mg/dL (1.6-2.6)
[2017-12-03 14:52] LABS: Red Blood Cells-Urine 0-5 SEEN /hpf (0-5)
[2017-12-03] MEDS: Magnesium Sulfate 20 GM/500 ML BAG IV (14:55)
--- NOTE | 2017-12-03 15:39 | CHAPLAIN ---
Type of Pastoral Visit ___ Initial Visit ___ Follow-up Visit ___ On-call Visit ___ General Patient Visit ___ Spiritual Assessment ___ Family Conference ___ Bereavement _x__ Rapid Response ___ Code Blue _x__ Other (describe below) Pastoral Care Referral From ___ Patient ___ Family ___ Nurse ___ Physician ___ Clinical Studies Specialist ___ Bus System Operator _x__ Other (describe below) Sacrament/Intervention ___ Active listening ___ Anointing ___ Catholic ___ Bereavement ___ Communion ___ Sara exploration ___ ___ Life review _x__ Prayer ___ Reconciliation ___ Sacrament of Sick _x__ Supportive presence ___ Wedding ___ Other (describe below) Pastoral Comments called to ED for brain bleed patient who is being prepared for transport out to [facility]; Significant Other and parents are in triage room being informed of pt condition by ; patient is also post and baby is in the triage room; spent time with family giving presence, offering assistance, and giving a prayer; stayed with family members until transfer out of hospital was complete
== END 2017-12-03 15:42 | disposition short-term general hospital (02) ==
PROVIDERS: Emergency Provider Emergency Medicine
DX: I16.1 Hypertensive emergency (principal); G04.90 Encephalitis and encephalomyelitis, unspecified; I60.9 Nontraumatic subarachnoid hemorrhage, unspecified; O14.95 Unspecified pre-eclampsia, complicating the puerperium; E66.9 Obesity, unspecified
CPT/HCPCS: 31500; 36556; 51702; 70450; 71045; 74018; 80053; 81001; 83735; 84550; 85025; 85610; 85730; 93005; 96360; 96361; 99251; 99285; J7030; J7050; A4216; C1751; G0463

== ENCOUNTER 2017-12-16 19:33 | Inpatient (IN) | payer BC, SELFPAY ==
--- NOTE | 2017-12-16 19:45 | NURSING ---
PAGE PLACED TO NEURO ELECTRIC ORGAN ASSEMBLER AND CHECKER.
[2017-12-16 20:00] VITALS: BP 133/72; PULSE 79; RESP 12; TEMP 37.1; O2SAT 97
--- NOTE | 2017-12-16 20:10 | NURSING ---
SECOND PAGE TO BE PLACED TO NEURO MARINE EQUIPMENT DESIGN ENGINEER BY NEURO ANSWERING SERVICE.
[2017-12-16 20:21] VITALS: BP 133/72; PULSE 79; RESP 12; TEMP 37.1; O2SAT 97; BMI 35.0
--- NOTE | 2017-12-16 20:35 | NURSING ---
THIRD PAGE TO BE PLACED FOR NEURO ON BLAST FURNACE BLOWER BY ANSWERING SERVICE.
--- NOTE | 2017-12-16 21:05 | NURSING ---
REQUEST MADE FROM NEURO ANS SERVICE TO PAGE PHYSICIAN NEED ADM ORDERS.
[2017-12-16] MEDS: Lacosamide 100 MG Tablet PO (22:54)
[2017-12-17 06:02] LABS: Hematocrit 32.7 % (37-47); Hemoglobin 10.6 g/dl (12.0-15.0); Mean Corp Hgb Conc 32.4 g/gl (32-36); Mean Corpuscular Hgb 29.9 pg (27.0-32.0); Mean Corpuscular Volume 92.1 fL (81-99); Mean Platelet Vol. 8.4 fl (6.2-12.0); Platelet Count 627 K/mm3 (150-450); RBC Distribution Width CV 13.3 % (11.6-14.6); RBC Distribution Width SD 42.9 fl (35.1-43.9); Red Blood Count 3.55 M/mm3 (4.2-5.4); White Blood Count 8.1 K/mm3 (4.4-11.0)
[2017-12-17 06:05] LABS: Scan Indicated on CBC? Y/N NO
[2017-12-17 06:18] LABS: Anion Gap 6 (5-15); BUN 13 mg/dL (7-18); BUN/Creat Ratio 21.6 RATIO (10-20); Chloride 106 mmol/L (98-107); EST Glomerular Filtration Rate 123 mL/min (>60); Est Glom Filt Rate - Afr Amer 149 mL/min (>60); Estimated Creatinine Clearance 122.25 ml/min; Glucose 86 mg/dL (74-106); Potassium 3.6 mmol/L (3.5-5.1); Sodium Level 142 mmol/L (136-145)
[2017-12-17] MEDS: Enoxaparin 40 MG/0.4 ML Syringe SC (06:48)
[2017-12-17 08:45] VITALS: BP 124/68; PULSE 92; RESP 17; TEMP 37.1; O2SAT 97
--- NOTE | 2017-12-17 09:07 | HP.PCM.COS_ITS ---
History of Present Illness Date of Admission: 12/16/17 Chief Complaint: B/L SAH The patient is a 32 year old right handed female who was admitted to the rehab unit for rehabilitation after suffering bilateral frontal and left parietal SAH , 2/2 preeclampsia s/p . She presented to [place] ED on 12/03/17 with complaints of a severe headache, a head CT was done and she was found to have bilateral SAH, she became anxious and aphasic, was intubated and transferred to [facility] for further treatment. A MARY was done on 12/04/17 which was concerning for a possible Type A distal ascending thoracic aortic dissection, which was ruled out on CTA chest which showed pulsating artifact. She develop RUL pneumonia was treated with antibiotics which she has since completed. She had two seizures on 12/09/17 was started on Vimpat 100mg BID. Developed a fever with leukocytosis of 29, Cultures where obtained and where +MSSA in sputum. 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 Past Medical History Allergies No Known Allergies Allergy (Verified 12/03/17 13:44) Home Medications: Ambulatory Orders Medication Instructions Recorded Carvedilol [Coreg] 12.5 mg PO BID 12/16/17 Enoxaparin Sodium [Lovenox] 40 mg SQ DAILY 12/16/17 Lacosamide [Vimpat] 100 mg PO BID 12/16/17 Multivitamin [Multiple Vitamins] 1 tab PO DAILY 12/16/17 Surgical History: - - Section ADMINISTRATIVE SUPPORT ASSOCIATE History: - - Miscarriage Lives: Spouse/ Significant Other Smoking Status: Never smoker Tobacco Use: Non-smoker Alcohol: Occasional Drugs: None VTE Information - Inpt Only VTE Present on Admission: No VTE Mechan Device Prophylaxis: SCD's, Knee High NIRMAL Hose VTE Pharm Prophylaxis ordered?: Yes - Physical Exam General: Alert, Oriented x3, Cooperative HEENT: Atraumatic, PERRLA, EOMI, Normocephalic Neck: Supple, No JVD, Negative Carotid Bruits Lungs: Clear to auscultation, Normal air movement Cardiovascular: Regular rate, No murmurs Abdomen: Bowel Sounds Present, Soft, Non Tender Extremities: No edema, Capillary Refill Less than 3 Seconds Skin: No rashes, No breakdown Musculoskeletal: No Tenderness to Palpation of Joints or Extremities Neurological: Cranial nerves II-XII grossly intact Psych/Mental Status: Normal Affect, Appropriate Vital Signs Temp Pulse Resp BP Pulse Ox 98.8 F 92 17 124/68 H 97 12/17/17 08:45 12/17/17 08:45 12/17/17 08:45 12/17/17 08:45 12/17/17 08:45 Oxygen Delivery Method Room Air Weight: 95.5 kg Body Mass Index (BMI) 35.0 Intake and Output for Last 24 Hours 12/15/17 12/16/17 12/17/17 23:59 23:59 23:59 Intake Total 220 / 220 Output Total 275 / 275 Balance -275 / -275 220 / 220 Laboratory Tests Past 24 Hrs 12/17/17 12/17/17 05:30 05:30 WBC 8.1 RBC 3.55 L Hgb 10.6 L Hct 32.7 L MCV 92.1 MCH 29.9 MCHC 32.4 RDW 13.3 RDW Differential 42.9 Plt Count 627 H MPV 8.4 Sodium 142 Potassium 3.6 Chloride 106 Carbon Dioxide 30.0 Anion Gap 6 BUN 13 Creatinine 0.60 Estim Creat Clear Calc 122.25 Est GFR (MDRD) Af Amer 149 Est GFR (MDRD) Non-Af 123 BUN/Creatinine Ratio 21.6 H Glucose 86 Calcium 9.0 Assessment/Plan Debility status post B/L SAH, Complicated by right sided neglect, aphasia, and seizures. Goal of rehab is christianity of prior level of functional independence. Plan: - Physical therapy for gait and balance - Occupational Therapy for ADLs - Speech therapy - As needed analgesics - Bowel protocol - DVT prophylaxis: SCDs, Lovenox - Hypertension: Stable with good control - incision -> well approximated, well healed, C/D/I, no drainage noted. - Seizures -> stable - continue Vimpat
[2017-12-17] MEDS: Carvedilol 12.5 MG Tablet PO ×2 (10:15→22:56)
[2017-12-17] MEDS: Multivitamins,Therapeutic Tablet 1 TABLET PO (10:15)
[2017-12-17] MEDS: Senna/Docusate Sodium 1 Tablet 2 TABLET PO (10:20)
[2017-12-17] MEDS: Lacosamide 100 MG Tablet PO ×2 (10:21→22:55)
--- NOTE | 2017-12-17 14:11 | REHABEVAL_ITS ---
Admission Information Status Changes from Prescreening?: No changes Identified Actual Problem List:: Infection, Cognitve Impr/Memory Loss, Mobility Impaired, Self Care Deficit, Know.Dfct/Disease Process, Know.Dfct of Medicaitons, Ineffect.D/C Plan r/t Psy Potential Problem List:: DVT, Bleeding, Infection, UTI, Aspiration, Falls, Skin Integrity, Depression Risk of Complications DVT: LMWH, NIRMAL Hose, Sequential Compression Device Bleeding: Monitor Lab Values, Nursing to Teach Precautions for anti-coagulation therapy., Wound, if applicable, to be assessed every shift., Stroke patients assessed for lethargy or change in status. Infection: Clinical Staff to Monitor for S/S of infection:, S/S of infection include fever, redness, warmth, etc. Urinary Tract Infection: Monitor for frequency, burning, discomfort, or incontinence., Nursing will obtain urine sample for urinalysis and C&S when ordered. Aspiration: Clinical staff will monitor for coughing, drooling, congestion., Speech will evaluate swallowing and dsyphasia., Nursing will monitor patient swallowing during meals. Falls: Patient will be evaluated for Fall Precautions, Patient will be placed on Fall Precautions as indicated per protocol. Skin Breakdown: Nursing will assess skin daily using assessment tool., Nursing will place on Skin Breakdown Precautions as indicated. Pain: Clinical staff will assess patient's pain level per protocol., Medications will be given, if needed, and the pain level reassessed., Other methods: Massage, distraction, decrease stimulus, etc. used PRN. Plan of Care Patient requires physician specializing in physical medicine and rehab oversight to provide close medical supervision of rehab issues including: Pain Management, Sleep Problems, Bowel and Bladder, Medical and co-morbidity Management, DVT prophylaxis, Rehabilitation Leadership, Coordination of treatment team Patient needs Physical Therapy: For a minimum of 1 hour, At least 5 out of 7 days Patient needs Physical Therapy to improve:: Mobility, Mobility, Mobility, Strengthening, Transfers, Stretching, ROM, Endurance, Stairs, Gait, Balance Patient needs Occupational Therapy: For a minimum of 1 hour, At least 5 out of 7 days Patient needs Occupational Therapy to improve ADL's incl.: Eating, Grooming, Bathing, Dressing, Toileting, Toilet transfers, Community Reintegration, Higher functioning activities, Household tasks, Adaptive Equipment, Splinting, Other activities as determined Patient requires speech therapy: For a minimum of 1 hour, At least 5 out of 7 days Patient requires speech therapy for: Swallowing, Cognition, Language Skills, Compensatory Strategies Patient requires 24/ Rehabilitation Nursing for: Pain Issues, Identifying and preventing risk factors, Monitoring and reporting current medical conditions, Assisting with ambulation, transfer, and all ADL's, Teaching patients about disease process and medications, Family teaching, Providing safe environment, Bowel and Bladder Issues, Skin integrity, Medication Management Patient needs Motion Picture Narrator/ Case Management for: Discharge Planning, Arranging Home Equipment or Services, Family Interventions Patient needs Dietary and Nutrition Services for: Adequate Nutrition, Nutritional Supplements, Nutritional Education Goals Patient will remain: free from falls, or injury at time of discharge. Patient will perform bed mobility at: MOD I level of assist. Patient will complete transfers from bed to chair at: MOD I level of assist. Patient will ambulate: 100 feet, with MOD I assist, with LRD Patient will complete upper body dressing at: MOD I level of assist. Patient will complete lower body dressing at: MOD I level of assist. Patient will complete toileting at: MOD I level of assist. Patient will perform bathing at: MOD I level of assist. Patient will complete grooming at: MOD I level of assist. Patient will complete home management skills at: MOD I level of assist. Patient will achieve: 12 stairs, at MOD I assist Patient will have pain level of: of 3 or less Patient's skin will: remain intact, free from infection. Patient will receive: adequate nutrition. Discharge Planning Pt Prognosis for Sig. Practical Improv. w/in Reasonable Time: Good Anticipated D/C Destination: Home with Outpt Therapy Was Preadmission Assessment Accurate?: Yes
[2017-12-17 14:40] VITALS: O2SAT 98
[2017-12-17] MEDS: NYSTATIN 500,000 UNIT/5 ML UDC 500000 UNIT PO ×2 (17:45→22:55)
--- NOTE | 2017-12-17 19:08 | PCM.CONS.GEN ---
Problem List (1) SAH (subarachnoid hemorrhage) Status: Acute (2) Seizure Status: Acute (3) Hypertension Status: Chronic Reason for Consult Date of Consultation: 12/17/17 Reason for Consultation: consult requested by Dr. Murcia for medical mgmt History of Present Illness: The patient is a 32 year old F Patient was transferred to [facility]. Patient's course completed with a respiratory failure for airway protection and also patient did suffer to seizures and was started on Vimpat. Afterwards patient has transferred to [place] [facility] for further management and rehabilitation purposes. There was a concern during her hospitalization for a descending aortic dissection but that was ruled out with a CT angiogram. There is also concern for diabetes insipidus which patient was on DDAVP but that was ruled out as well by nephrology. Patient has no complaints at this time. Per nursing, patient has had a flat affect since her arrival. Patient did have episode of incontinence in the hallway and did not seem to have any kind of embarrassment nor remorse with that. Though did seem to be unintentional. Patient's subarachnoid hemorrhage occurred 6 days after giving . Patient blood pressure upon arrival is 189/116 on December 03.[] Past Medical History Past Medical History (Chronic Problems): Chronic Problems Hypertension (Chronic) Allergies No Known Allergies Allergy (Verified 12/03/17 13:44) Home Medications: Ambulatory Orders Medication Instructions Recorded Carvedilol [Coreg] 12.5 mg PO BID 12/16/17 Enoxaparin Sodium [Lovenox] 40 mg SQ DAILY 12/16/17 Lacosamide [Vimpat] 100 mg PO BID 12/16/17 Multivitamin [Multiple Vitamins] 1 tab PO DAILY 12/16/17 Surgical History: - - Section Psychiatric History: No pertinent psych hx CHILDCARE AIDE History: - - Miscarriage Lives: Spouse/ Significant Other Smoking Status: Never smoker Tobacco Use: Non-smoker Alcohol: Occasional Drugs: None - *Family History Offspring History Items: - - healthy Review of Systems Constitutional: Denies: Chills, Fever, Weight Change Eyes: Denies: Blurred vision, Double vision HEENT: Denies: Head Aches, Sinus Congestion, Sinus Drainage Cardiovascular: Denies: Chest Pain, Palpitations Respiratory: Denies: Cough, Shortness of breath at rest, Sputum production Gastrointestinal: Denies: Abdominal Pain, Nausea, Vomiting Genitourinary: Denies: Dysuria Musculoskeletal: Denies: Joint Pain, Joint Tenderness Skin: Denies: Rash, Wounds Psychiatric: Denies: Anxiety, Depression, Homicidal Ideations, Suicidal Ideations Hematologic/ Lymphatic: Denies: Easy Bruising, Easy Bleeding, Hx of blood clot Patient Problems: Active and Suspected Problems SAH (subarachnoid hemorrhage) (Acute) Seizure (Acute) - Physical Exam General: Alert, Cooperative, No apparent distress HEENT: Atraumatic, Normocephalic Neck: No Nodes, Thyroid Normal Size and Texture Lungs: Clear to auscultation, Normal air movement, No rhonchi, No wheeze Cardiovascular: Regular rate, Regular Rhythm, Normal S1, Normal S2, No murmurs Abdomen: Bowel Sounds Present, Soft, Non Tender, Non-Distended, No Hepato-splenomegaly Extremities: No edema, No Calf Tenderness Skin: No rashes, No breakdown Psych/Mental Status: Appropriate, Flat Affect Vital Signs Temp Pulse Resp BP Pulse Ox 37.1 C 92 17 124/68 H 98 12/17/17 08:45 12/17/17 08:45 12/17/17 08:45 12/17/17 08:45 12/17/17 14:40 Oxygen Delivery Method Room Air Weight: 95.5 kg Body Mass Index (BMI) 35.0 Intake and Output for Last 24 Hours 12/15/17 12/16/17 12/17/17 23:59 23:59 23:59 Intake Total 460 / 460 Output Total 275 / 275 Balance -275 / -275 460 / 460 Laboratory Tests Past 24 Hrs 12/17/17 12/17/17 05:30 05:30 WBC 8.1 RBC 3.55 L Hgb 10.6 L Hct 32.7 L MCV 92.1 MCH 29.9 MCHC 32.4 RDW 13.3 RDW Differential 42.9 Plt Count 627 H MPV 8.4 Sodium 142 Potassium 3.6 Chloride 106 Carbon Dioxide 30.0 Anion Gap 6 BUN 13 Creatinine 0.60 Estim Creat Clear Calc 122.25 Est GFR (MDRD) Af Amer 149 Est GFR (MDRD) Non-Af 123 BUN/Creatinine Ratio 21.6 H Glucose 86 Calcium 9.0 Assessment/Plan Active and Suspected Problems SAH (subarachnoid hemorrhage) (Acute) Seizure (Acute) 1. Subarachnoid hemorrhage: Nonsurgical. Patient had some frontal lobe involvement and may explain some of her flat affect. Patient has had some issues regards to bonding with her child unclear if is related with the hemorrhage or not. Maintain adequate blood pressure control with keeping systolic blood pressure less than 140. 2. Hypertension: Currently stable at this time. Continue with carvedilol. 3. DVT prophylaxis: Patient is currently on Lovenox. Patient does manifest change in mental status then would have a low threshold to reevaluate for any new bleeds. 4. Polyuria: This was evidenced over at [facility]. There was concern for diabetes insipidus but nephrology had ruled that out. Thank you for the consultation. The hospitalist service will continue to follow along during the course of the patient's hospitalization. Code Visit Inpatient E&M: 23846 Init Hosp L2
[2017-12-17 19:56] VITALS: BP 117/80; PULSE 82; RESP 12; TEMP 36.7; O2SAT 98
--- NOTE | 2017-12-18 02:42 | NURSING ---
CALL PLACED TO HOSPITALIST DR. CRAMER. INFORMED THAT PT HAS HAD 1 BOUT OF DIARRHEA THIS SHIFT AND BELLYACHE AND NOW PT FEELS QUEAZY. ORDERS GIVEN AND ADVISED TO HOLD SENNA.
--- NOTE | 2017-12-18 03:10 | NURSING ---
PT REPORTS TO FEEL A LITTLE BETTER AFTER TAKING MYLICON TAB. ATTEMPT TO START IV X 2 ATTEMPTS WITHOUT SUCCESS.
--- NOTE | 2017-12-18 03:35 | NURSING ---
PT RESTING ON HER R SIDE WITH EYES CLOSED. RESPIRATIONS ARE EVEN AND EASY.
--- NOTE | 2017-12-18 04:05 | NURSING ---
PT REMAINS RESTING IN SAME POSITION WITH EYES CLOSED.
[2017-12-18 06:31] LABS: Anion Gap 9 (5-15); BUN 15 mg/dL (7-18); BUN/Creat Ratio 23.2 RATIO (10-20); Chloride 105 mmol/L (98-107); Creatinine, Serum 0.65 mg/dL (0.55-1.02); EST Glomerular Filtration Rate 114 mL/min (>60); Est Glom Filt Rate - Afr Amer 138 mL/min (>60); Estimated Creatinine Clearance 112.84 ml/min; Glucose 101 mg/dL (74-106); Potassium 3.8 mmol/L (3.5-5.1); Sodium Level 142 mmol/L (136-145)
[2017-12-18 06:37] LABS: Hematocrit 32.9 % (37-47); Hemoglobin 10.5 g/dl (12.0-15.0); Mean Corp Hgb Conc 31.9 g/gl (32-36); Mean Corpuscular Hgb 29.5 pg (27.0-32.0); Mean Corpuscular Volume 92.4 fL (81-99); Mean Platelet Vol. 8.7 fl (6.2-12.0); Platelet Count 634 K/mm3 (150-450); RBC Distribution Width CV 13.3 % (11.6-14.6); RBC Distribution Width SD 43.1 fl (35.1-43.9); Red Blood Count 3.56 M/mm3 (4.2-5.4)
[2017-12-18] MEDS: Enoxaparin 40 MG/0.4 ML Syringe SC (06:38)
--- NOTE | 2017-12-18 06:40 | NURSING ---
PT IN BATHROOM WITH TASHA AND PT REPORTS TO BE FEELING BETTER AND SMILING.
[2017-12-18 06:41] LABS: Scan Indicated on CBC? Y/N NO
--- NOTE | 2017-12-18 06:50 | NURSING ---
DR HAINES NOTIFIED OF PT'S CBC RESULTS AND BELLYACHE/DIARRHEA AND MILD NAUSEA EXPERIENCED DURING THE NIGHT AND THAT PT FEELS MUCH BETTER NOW. ORDERS GIVEN.
[2017-12-18] MEDS: Lacosamide 100 MG Tablet PO ×2 (08:25→21:16)
[2017-12-18] MEDS: Carvedilol 12.5 MG Tablet PO ×2 (08:25→21:16)
[2017-12-18] MEDS: Multivitamins,Therapeutic Tablet 1 TABLET PO (08:25)
[2017-12-18] MEDS: NYSTATIN 500,000 UNIT/5 ML UDC 500000 UNIT PO ×4 (08:26→21:16)
[2017-12-18 08:37] VITALS: BP 133/87; PULSE 88; RESP 14; TEMP 37; O2SAT 96
[2017-12-18 13:01] LABS: Bacteria 0 SEEN /hpf (None Seen); Mucous, Urine 0 SEEN /hpf (<or=2+); Red Blood Cells-Urine 0 SEEN /hpf (0-5); Squamous Epithelial Cells - UA 0 SEEN /hpf (5-10); White Blood Cells 0 SEEN /hpf (0-5)
--- NOTE | 2017-12-18 13:04 | PN.NEURO_ITS ---
Patient Problems: Active and Suspected Problems SAH (subarachnoid hemorrhage) (Acute) Seizure (Acute) Subjective: Patient seen and examined. No acute events overnight. Tolerating therapy. Patient has a flat affect, patient's daughter was in to visit and she did not interact or converse with her mother during the visit only to answer yes or no, nitro worker will talk to her and offer suggestions and help. Some mild depression noted will start Lexapro. - Physical Exam General: Alert, Oriented x3, Cooperative HEENT: Atraumatic, PERRLA, EOMI, Normocephalic Neck: Supple, No JVD, Negative Carotid Bruits Lungs: Clear to auscultation, Normal air movement Cardiovascular: Regular rate, No murmurs Abdomen: Bowel Sounds Present, Soft, Non Tender Extremities: No edema, Capillary Refill Less than 3 Seconds Skin: No rashes, No breakdown Musculoskeletal: No Tenderness to Palpation of Joints or Extremities Neurological: Cranial nerves II-XII grossly intact Psych/Mental Status: Flat Affect Vital Signs Temp Pulse Resp BP Pulse Ox 98.6 F 88 14 133/87 H 96 12/18/17 08:37 12/18/17 08:37 12/18/17 08:37 12/18/17 08:37 12/18/17 08:37 Oxygen Delivery Method Room Air Weight: 95.5 kg Body Mass Index (BMI) 35.0 Intake and Output for Last 24 Hours 12/16/17 12/17/17 12/18/17 23:59 23:59 23:59 Intake Total 700 / 700 240 / 240 Output Total 275 / 275 Balance -275 / -275 700 / 700 240 / 240 Laboratory Tests Past 24 Hrs 12/18/17 12/18/17 12/18/17 05:50 05:50 12:50 WBC 15.0 H RBC 3.56 L Hgb 10.5 L Hct 32.9 L MCV 92.4 MCH 29.5 MCHC 31.9 L RDW 13.3 RDW Differential 43.1 Plt Count 634 H MPV 8.7 Sodium 142 Potassium 3.8 Chloride 105 Carbon Dioxide 28.0 Anion Gap 9 BUN 15 Creatinine 0.65 Estim Creat Clear Calc 112.84 Est GFR (MDRD) Af Amer 138 Est GFR (MDRD) Non-Af 114 BUN/Creatinine Ratio 23.2 H Glucose 101 Calcium 9.0 Urine Color Pending Urine Clarity Pending Urine pH Pending Ur Specific [place] Pending Urine Protein Pending Urine Glucose (UA) Pending Urine Ketones Pending Urine Occult Blood Pending Urine Nitrite Pending Urine Bilirubin Pending Urine Urobilinogen Pending Ur Leukocyte Esterase Pending Urine RBC Pending Urine WBC Pending Ur Squamous Epith Cells Pending Urine Bacteria Pending Urine Mucus Pending Active Medications Acetaminophen (Tylenol) 650 mg PO Q6H PRN PRN PRN Reason: Mild Pain (0-3/10)/Headache Hydrocodone Bitart/Acetaminophen ([place] 5mg-325mg) 1 - 2 tablet PO Q4H PRN PRN PRN Reason: MOD-SEVERE PAIN (4-10/10) Bisacodyl (Dulcolax) 10 mg RECTAL .PRN X 1 PRN PRN Reason: Constipation Carvedilol (Coreg) 12.5 mg PO BID [facility] Last Admin: 12/18/17 08:25 Dose: 12.5 mg Enoxaparin Sodium (Lovenox) 40 mg SC DAILY@0600 [facility] Last Admin: 12/18/17 06:38 Dose: 40 mg Lacosamide (Vimpat) 100 mg PO BID [facility] Stop: 01/15/18 22:00 Last Admin: 12/18/17 08:25 Dose: 100 mg Lorazepam (Ativan) 0.5 mg PO QHS PRN PRN PRN Reason: Insomnia Magnesium Hydroxide (Milk Of Magnesia) 30 ml PO .PRN X 1 PRN PRN Reason: Constipation [facility]it[facility]) [facility] Last Admin: 12/18/17 08:25 Dose: 1 tablet Nystatin (Nystatin) 500,000 unit PO 4X/DAY [facility] Last Admin: 12/18/17 08:26 Dose: 500,000 unit Ondansetron HCl (Zofran) 4 mg IV Q6H PRN PRN PRN Reason: nausea, emesis Promethazine HCl (Phenergan) 6.25 mg IV Q4H PRN PRN PRN Reason: NAUSEA/VOMITING Senna/Docusate Sodium (Senokot-S, Theresa-Colace) 2 tablet PO BID [facility] Last Admin: 12/18/17 04:15 Dose: Not Given Simethicone (Mylicon) 80 mg PO TIDPC [facility] Last Admin: 12/18/17 08:25 Dose: 80 mg Medical Necessity - Tobacco Use Smoking Status: Never smoker Tobacco Use: Non-smoker Assessment/Plan Active and Suspected Problems SAH (subarachnoid hemorrhage) (Acute) Seizure (Acute) Debility status post B/L SAH, Complicated by right sided neglect, aphasia, and seizures. Goal of rehab is denominational of prior level of functional independence. Plan: - Physical therapy for gait and balance - Occupational Therapy for ADLs - Speech therapy - As needed analgesics - Bowel protocol - DVT prophylaxis: SCDs, Lovenox - Hypertension: Stable with good control - incision -> well approximated, well healed, C/D/I, no drainage noted. - Seizures -> stable - continue Vimpat - Depression -> start Lexapro 10mg at HS
[2017-12-18 13:05] LABS: Color, Urine Yellow (Yellow); Glucose, Dipstick Normal (Normal); Ketone-Dipstick Negative (Negative); Leukocyte Esterase-Dipstick Negative /ul (Negative); Nitrite-Dipstick Negative (Negative); Occult Blood-Urine Negative /ul (Negative); Protein-Dipstick Negative (Negative); Specific Gravity, Urine 1.015 (1.002-1.030); Urine Bilirubin Dipstick Negative (Negative); Urine Clarity Clear (Clear); Urine Urobilinogen Normal (Normal)
--- NOTE | 2017-12-18 13:30 | NURSING ---
UA collected per order and patient compliant and cooperative and verbalized understanding. Due to elevated wbc count this am, this nurse also assessed jacob breasts since she is no longer producing milk and no redness or streaks noted and right breast slightly firm but no complaints voiced. Incision from c section looks wnl and intact, pink, scarred. Will monitor. Christina MUJICA aware of labs this morning at 0900. Will continue to monitor.
[2017-12-18 13:41] VITALS: O2SAT 97
--- NOTE | 2017-12-18 16:13 | CASEMGMT ---
Social Work Nursing and physician reporting to this medical social worker that patient mother, Ijeoma and patient daughter, Mee Salas (Mee Salsa is about 1 month old) were in to see patient in the evening on 12/17/17 and patient did not interact with Mee Maritza. Met with patient in room for emotional support. This medical social worker broaching topic of visit with Meeevelina Salas. Patient stating 1-2 word sentences with little affect. Patient smiling when this medical social worker asked patient if visit with Meeevelina Salas went well. This medical social worker asked if patient felt a connection to Mee Maritza, patient shaking head yes and smiling towards this medical social worker. This medical social worker asking how seeing Mee Maritza affected patient, patient not responding verbally to question and just looked at this medical social worker. This medical social worker asking patient if it was difficult or challenging seeing Mee Maritza. Patient looking away from this medical social worker and shacking head yes. This medical social worker acknowledging with patient that there could be possible trauma associated with Mee Maritza as patient had a complicated that lead to current medical status, patient shacking head yes towards this medical social worker. This medical social worker offering emotional support and normalizing patient feelings. Patient agreeable to this medical social worker continuing to check in with patient and contacting patient motherIjeoma. Support given. Patient responding with yes and no answers or one word statements during assessment but did not/was not able respond to any open ended questions. Telephone call to Ijeoma. Ijeoma is currently caring for Mee Salas and is reporting that Meeevelina Salas has been doing well. This medical social worker broached topic of visit on 12/17/17 and how Ijeoma thought the visit went. Ijeoma reporting that patient has held Mee Maritza in the past but did not hold on this occasion. Ijeoma reporting that patient did kiss Mee Maritza prior to Mee Maritza leaving and that this was the first time that patient has had this interaction with Mee Maritza. Ijeoma reporting to be encouraged with interaction that patient and Mee Maritza had. Ijeoma also sharing other family dynamics and recent struggles that the family and patient have been working through prior to medical complications for patient. Ijeoma planning to attend team meeting on Friday. Support given. Will continue to follow. Naina ESPINOZA, PETROGRAPHY TEACHER
[2017-12-18 19:28] VITALS: BP 134/80; PULSE 95; RESP 16; TEMP 37; O2SAT 95
[2017-12-18 22:00] VITALS: BMI 35.0
[2017-12-19] MEDS: Enoxaparin 40 MG/0.4 ML Syringe SC (05:29)
[2017-12-19 06:06] LABS: Absolute Lymphocyte Count 1.88 X10^3/ul (0.83-4.51); Absolute Neutrophil Count 8.1 X10^3/uL (2.0-7.7); Basophil# 0.05 X10^3/uL; Basophil% 0.4 % (0-1); Eosinophil# 0.34 X10^3/uL; Hematocrit 33.3 % (37-47); Hemoglobin 10.7 g/dl (12.0-15.0); Lymphocyte # 1.88 X10^3/ul (4.0); Lymphocyte % 16.9 % (19-41); Mean Corp Hgb Conc 32.1 g/gl (32-36); Mean Corpuscular Hgb 29.5 pg (27.0-32.0); Mean Corpuscular Volume 91.7 fL (81-99); Mean Platelet Vol. 8.4 fl (6.2-12.0); Monocyte# 0.66 X10^3/uL; Monocyte% 5.9 % (0-10); Neutrophil # 8.11 X10^3/uL (2.7-7.7); Neutrophil % 72.8 % (47-70); Platelet Count 597 K/mm3 (150-450); RBC Distribution Width CV 13.3 % (11.6-14.6); RBC Distribution Width SD 43.4 fl (35.1-43.9); Red Blood Count 3.63 M/mm3 (4.2-5.4); White Blood Count 11.2 K/mm3 (4.4-11.0)
[2017-12-19 06:17] LABS: POSITIVE COUNT NO; POSITIVE DIFFERENTIAL NO; POSITIVE MORPHOLOGY NO
[2017-12-19 08:41] VITALS: BP 157/102; PULSE 86; RESP 16; TEMP 36.4; O2SAT 99
[2017-12-19] MEDS: Multivitamins,Therapeutic Tablet 1 TABLET PO (09:44)
[2017-12-19] MEDS: Carvedilol 12.5 MG Tablet PO ×2 (09:44→21:03)
[2017-12-19] MEDS: Escitalopram Oxalate 10 MG Tablet PO (09:44)
[2017-12-19] MEDS: NYSTATIN 500,000 UNIT/5 ML UDC 500000 UNIT PO ×4 (09:44→21:03)
[2017-12-19] MEDS: Lacosamide 100 MG Tablet PO ×2 (09:44→21:03)
[2017-12-19 09:45] VITALS: BP 137/87; PULSE 95
--- NOTE | 2017-12-19 11:14 | PCM.PN.NEU ---
Patient Problems: Active and Suspected Problems SAH (subarachnoid hemorrhage) (Acute) Seizure (Acute) Subjective: Patient seen and examined. Tolerating therapy. Denies any headaches, blurred vision, or double vision. Tolerating regular diet. No issues with GI, occasionally is incontinent of urine, has elevated WBC, a urinalysis was sent, no indication of infection present. - Physical Exam General: Alert, Oriented x3, Cooperative HEENT: Atraumatic, PERRLA, EOMI, Normocephalic Neck: Supple, No JVD, Negative Carotid Bruits Lungs: Clear to auscultation, Normal air movement Cardiovascular: Regular rate, No murmurs Abdomen: Bowel Sounds Present, Soft, Non Tender Extremities: No edema, Capillary Refill Less than 3 Seconds Skin: No rashes, No breakdown Musculoskeletal: No Tenderness to Palpation of Joints or Extremities Neurological: Cranial nerves II-XII grossly intact Psych/Mental Status: Normal Affect, Appropriate, Alert and oriented to time, place, person, mood and affect Vital Signs Temp Pulse Resp BP Pulse Ox 97.6 F L 95 16 137/87 H 99 12/19/17 08:41 12/19/17 09:45 12/19/17 08:41 12/19/17 09:45 12/19/17 08:41 Oxygen Delivery Method Room Air Weight: 95.5 kg Body Mass Index (BMI) 35.0 Intake and Output for Last 24 Hours 12/17/17 12/18/17 12/19/17 23:59 23:59 23:59 Intake Total 700 / 700 560 / 560 180 / 180 Balance 700 / 700 560 / 560 180 / 180 Laboratory Tests Past 24 Hrs 12/18/17 12/19/17 12:50 05:45 WBC 11.2 H RBC 3.63 L Hgb 10.7 L Hct 33.3 L MCV 91.7 MCH 29.5 MCHC 32.1 RDW 13.3 RDW Differential 43.4 Plt Count 597 H MPV 8.4 Immature Gran % (Auto) 1.000 H Neut % (Auto) 72.8 H Lymph % (Auto) 16.9 L [place] % (Auto) 5.9 Eos % (Auto) 3.0 Baso % (Auto) 0.4 Absolute Neuts (auto) 8.1 H Absolute Lymphs (auto) 1.88 Total Counted Not Reportable Urine Color Yellow Urine Clarity Clear Urine pH 6.0 Ur Specific [place] 1.015 Urine Protein Negative Urine Glucose (UA) Normal Urine Ketones Negative Urine Occult Blood Negative Urine Nitrite Negative Urine Bilirubin Negative Urine Urobilinogen Normal Ur Leukocyte Esterase Negative Urine RBC 0 SEEN Urine WBC 0 SEEN Ur Squamous Epith Cells 0 SEEN Urine Bacteria 0 SEEN Urine Mucus 0 SEEN Active Medications Acetaminophen (Tylenol) 650 mg PO Q6H PRN PRN PRN Reason: Mild Pain (0-3/10)/Headache Hydrocodone Bitart/Acetaminophen ([place] 5mg-325mg) 1 - 2 tablet PO Q4H PRN PRN PRN Reason: MOD-SEVERE PAIN (4-10/10) Bisacodyl (Dulcolax) 10 mg RECTAL .PRN X 1 PRN PRN Reason: Constipation Carvedilol (Coreg) 12.5 mg PO BID [facility] Last Admin: 12/19/17 09:44 Dose: 12.5 mg Enoxaparin Sodium (Lovenox) 40 mg SC DAILY@0600 [facility] Last Admin: 12/19/17 05:29 Dose: 40 mg Escitalopram Oxalate (Lexapro) 10 mg PO DAILY [facility] Last Admin: 12/19/17 09:44 Dose: 10 mg Lacosamide (Vimpat) 100 mg PO BID [facility] Stop: 01/15/18 22:00 Last Admin: 12/19/17 09:44 Dose: 100 mg Lorazepam (Ativan) 0.5 mg PO QHS PRN PRN PRN Reason: Insomnia Magnesium Hydroxide (Milk Of Magnesia) 30 ml PO .PRN X 1 PRN PRN Reason: Constipation [facility]) [facility] Last Admin: 12/19/17 09:44 Dose: 1 tablet Nystatin (Nystatin) 500,000 unit PO 4X/DAY [facility] Last Admin: 12/19/17 09:44 Dose: 500,000 unit Ondansetron HCl (Zofran) 4 mg IV Q6H PRN PRN PRN Reason: nausea, emesis Promethazine HCl (Phenergan) 6.25 mg IV Q4H PRN PRN PRN Reason: NAUSEA/VOMITING Senna/Docusate Sodium (Senokot-S, [place]-Colace) 2 tablet PO BID [facility] Last Admin: 12/19/17 09:45 Dose: Not Given Simethicone ([facility]licon) [facility] Last Admin: 12/19/17 09:44 Dose: 80 mg Medical Necessity - Tobacco Use Smoking Status: Never smoker Tobacco Use: Non-smoker Assessment/Plan Active and Suspected Problems SAH (subarachnoid hemorrhage) (Acute) Seizure (Acute) Debility status post B/L SAH, Complicated by right sided neglect, aphasia, and seizures. Goal of rehab is mu-ism of prior level of functional independence. Plan: - Physical therapy for gait and balance - Occupational Therapy for ADLs - Speech therapy - As needed analgesics - Bowel protocol - DVT prophylaxis: SCDs, Lovenox - Hypertension: Stable with good control - incision -> well approximated, well healed, C/D/I, no drainage noted. - Seizures -> stable - continue Vimpat - Depression -> start Lexapro 10mg at HS - hop farm worker -> emotional support and counseling - Incontinence of urine with elevated WBC -> Urinalysis sent , was negative for Leukocytes or nitrates.
--- NOTE | 2017-12-19 11:21 | PN.NEURO_ITS ---
Patient Problems: Active and Suspected Problems SAH (subarachnoid hemorrhage) (Acute) Seizure (Acute) Subjective: Patient seen and examined. Tolerating therapy. Denies any headaches, blurred vision, or double vision. Tolerating regular diet. No issues with GI, occasionally is incontinent of urine, has elevated WBC, a urinalysis was sent, no indication of infection present. - Physical Exam General: Alert, Oriented x3, Cooperative HEENT: Atraumatic, PERRLA, EOMI, Normocephalic Neck: Supple, No JVD, Negative Carotid Bruits Lungs: Clear to auscultation, Normal air movement Cardiovascular: Regular rate, No murmurs Abdomen: Bowel Sounds Present, Soft, Non Tender Extremities: No edema, Capillary Refill Less than 3 Seconds Skin: No rashes, No breakdown Musculoskeletal: No Tenderness to Palpation of Joints or Extremities Neurological: Cranial nerves II-XII grossly intact Psych/Mental Status: Normal Affect, Appropriate, Alert and oriented to time, place, person, mood and affect Vital Signs Temp Pulse Resp BP Pulse Ox 97.6 F L 95 16 137/87 H 99 12/19/17 08:41 12/19/17 09:45 12/19/17 08:41 12/19/17 09:45 12/19/17 08:41 Oxygen Delivery Method Room Air Weight: 95.5 kg Body Mass Index (BMI) 35.0 Intake and Output for Last 24 Hours 12/17/17 12/18/17 12/19/17 23:59 23:59 23:59 Intake Total 700 / 700 560 / 560 180 / 180 Balance 700 / 700 560 / 560 180 / 180 Laboratory Tests Past 24 Hrs 12/18/17 12/19/17 12:50 05:45 WBC 11.2 H RBC 3.63 L Hgb 10.7 L Hct 33.3 L MCV 91.7 MCH 29.5 MCHC 32.1 RDW 13.3 RDW Differential 43.4 Plt Count 597 H MPV 8.4 Immature Gran % (Auto) 1.000 H Neut % (Auto) 72.8 H Lymph % (Auto) 16.9 L [place] % (Auto) 5.9 Eos % (Auto) 3.0 Baso % (Auto) 0.4 Absolute Neuts (auto) 8.1 H Absolute Lymphs (auto) 1.88 Total Counted Not Reportable Urine Color Yellow Urine Clarity Clear Urine pH 6.0 Ur Specific [place] 1.015 Urine Protein Negative Urine Glucose (UA) Normal Urine Ketones Negative Urine Occult Blood Negative Urine Nitrite Negative Urine Bilirubin Negative Urine Urobilinogen Normal Ur Leukocyte Esterase Negative Urine RBC 0 SEEN Urine WBC 0 SEEN Ur Squamous Epith Cells 0 SEEN Urine Bacteria 0 SEEN Urine Mucus 0 SEEN Active Medications Acetaminophen (Tylenol) 650 mg PO Q6H PRN PRN PRN Reason: Mild Pain (0-3/10)/Headache Hydrocodone Bitart/Acetaminophen ([place] 5mg-325mg) 1 - 2 tablet PO Q4H PRN PRN PRN Reason: MOD-SEVERE PAIN (4-10/10) Bisacodyl (Dulcolax) 10 mg RECTAL .PRN X 1 PRN PRN Reason: Constipation Carvedilol (Coreg) 12.5 mg PO BID COUNTS [facility]CLUDE 234 BEDS AT [facility] Last Admin: 12/19/17 09:44 Dose: 12.5 mg Enoxaparin Sodium (Lovenox) 40 mg SC DAILY@0600 COUNTS [facility]CLUDE 234 BEDS AT THE [facility] Last Admin: 12/19/17 05:29 Dose: 40 mg Escitalopram Oxalate (Lexapro) 10 mg PO DAILY COUNTS INCLUDE 234 BEDS AT THE [facility] Last Admin: 12/19/17 09:44 Dose: 10 mg Lacosamide (Vimpat) 100 mg PO BID COUNTS INCLUDE 234 BEDS AT THE [facility] Stop: 01/15/18 22:00 Last Admin: 12/19/17 09:44 Dose: 100 mg Lorazepam (Ativan) 0.5 mg PO QHS PRN PRN PRN Reason: Insomnia Magnesium Hydroxide (Milk Of Magnesia) 30 ml PO .PRN X 1 PRN PRN Reason: Constipation [facility] Last Admin: 12/19/17 09:44 Dose: 1 tablet Nystatin (Nystatin) 500,000 unit PO 4X/DAY COUNTS INCLUDE 234 BEDS AT THE [facility] Last Admin: 12/19/17 09:44 Dose: 500,000 unit Ondansetron HCl (Zofran) 4 mg IV Q6H PRN PRN PRN Reason: nausea, emesis Promethazine HCl (Phenergan) 6.25 mg IV Q4H PRN PRN PRN Reason: NAUSEA/VOMITING Senna/Docusate Sodium (Senokot-S, Theresa-Colace) 2 tablet PO BID COUNTS INCLUDE 234 BEDS AT THE [facility] Last Admin: 12/19/17 09:45 Dose: Not Given Simethicone ([facility]licon) [facility] Last Admin: 12/19/17 09:44 Dose: 80 mg Medical Necessity - Tobacco Use Smoking Status: Never smoker Tobacco Use: Non-smoker Assessment/Plan Active and Suspected Problems SAH (subarachnoid hemorrhage) (Acute) Seizure (Acute) Debility status post B/L SAH, Complicated by right sided neglect, aphasia, and seizures. Goal of rehab is orthodox of prior level of functional independence. Plan: - Physical therapy for gait and balance - Occupational Therapy for ADLs - Speech therapy - As needed analgesics - Bowel protocol - DVT prophylaxis: SCDs, Lovenox - Hypertension: Stable with good control - incision -> well approximated, well healed, C/D/I, no drainage noted. - Seizures -> stable - continue Vimpat - Depression -> start Lexapro 10mg at HS - food preparation worker -> emotional support and counseling - Incontinence of urine with elevated WBC -> Urinalysis sent , was negative for Leukocytes or nitrates.
--- NOTE | 2017-12-19 11:57 | PCM.PN.HOSP ---
Patient Problems: Active and Suspected Problems SAH (subarachnoid hemorrhage) (Acute) Seizure (Acute) Subjective: Patient is a 32-year-old lady who had subarachnoid hemorrhage 3 days after childbirth which was later complicated by respiratory failure resulting in patient was managed the vent with subsequent seizures managed at [facility] and transferred to [facility] inpatient rehab. Objective: GENERAL: Flat affect HEENT: Clear conjunctiva, NECK; supple, normal thyroid, CHEST: Clear to auscultation bilaterally, HEART: Regular S1 S2, no audible murmurs ABDOMEN: soft, non-tender, normoactive bowel sounds, RECTAL: deferred EXTREMITIES: No edema, no clubbing, no cyanosis. 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, oriented to place and person, SKIN: No Rash Vitals/I&O's: Vital Signs Temp Pulse Resp BP Pulse Ox 97.6 F L 95 16 137/87 H 99 12/19/17 08:41 12/19/17 09:45 12/19/17 08:41 12/19/17 09:45 12/19/17 08:41 Oxygen Delivery Method Room Air Weight: 95.5 kg Body Mass Index (BMI) 35.0 Intake and Output for Last 24 Hours 12/17/17 12/18/17 12/19/17 23:59 23:59 23:59 Intake Total 700 / 700 560 / 560 180 / 180 Balance 700 / 700 560 / 560 180 / 180 Laboratory Results 12/18/17 12:50: Urine Color Yellow, Urine Clarity Clear, Urine pH 6.0, Ur Specific [place] 1.015, Urine Protein Negative, Urine Glucose (UA) Normal, Urine Ketones Negative, Urine Occult Blood Negative, Urine Nitrite Negative, Urine Bilirubin Negative, Urine Urobilinogen Normal, Ur Leukocyte Esterase Negative, Urine RBC 0 SEEN, Urine WBC 0 SEEN, Ur Squamous Epith Cells 0 SEEN, Urine Bacteria 0 SEEN, Urine Mucus 0 SEEN 12/19/17 05:45: WBC 11.2 H, RBC 3.63 L, Hgb 10.7 L, Hct 33.3 L, MCV 91.7, MCH 29.5, MCHC 32.1, RDW 13.3, RDW Differential 43.4, Plt Count 597 H, MPV 8.4, Immature Gran % (Auto) 1.000 H, Neut % (Auto) 72.8 H, Lymph % (Auto) 16.9 L, [place] % (Auto) 5.9, Eos % (Auto) 3.0, Baso % (Auto) 0.4, Absolute Neuts (auto) 8.1 H, Absolute Lymphs (auto) 1.88, Total Counted Not Reportable Current Medications Acetaminophen (Tylenol) 650 mg PO Q6H PRN PRN PRN Reason: Mild Pain (0-3/10)/Headache Hydrocodone Bitart/Acetaminophen ([place] 5mg-325mg) 1 - 2 tablet PO Q4H PRN PRN PRN Reason: MOD-SEVERE PAIN (4-10/10) Bisacodyl (Dulcolax) 10 mg RECTAL .PRN X 1 PRN PRN Reason: Constipation Carvedilol (Coreg) 12.5 mg PO BID [facility] Last Admin: 12/19/17 09:44 Dose: 12.5 mg Enoxaparin Sodium (Lovenox) 40 mg SC DAILY@0600 [facility] Last Admin: 12/19/17 05:29 Dose: 40 mg Escitalopram Oxalate (Lexapro) 10 mg PO DAILY [facility] Last Admin: 12/19/17 09:44 Dose: 10 mg Lacosamide (Vimpat) 100 mg PO BID [facility] Stop: 01/15/18 22:00 Last Admin: 12/19/17 09:44 Dose: 100 mg Lorazepam (Ativan) 0.5 mg PO QHS PRN PRN PRN Reason: Insomnia Magnesium Hydroxide (Milk Of Magnesia) 30 ml PO .PRN X 1 PRN PRN Reason: Constipation [facility]it[facility] ([facility]) [facility] Last Admin: 12/19/17 09:44 Dose: 1 tablet Nystatin (Nystatin) 500,000 unit PO 4X/DAY [facility] Last Admin: 12/19/17 09:44 Dose: 500,000 unit Ondansetron HCl (Zofran) 4 mg IV Q6H PRN PRN PRN Reason: nausea, emesis Promethazine HCl (Phenergan) 6.25 mg IV Q4H PRN PRN PRN Reason: NAUSEA/VOMITING Senna/Docusate Sodium (Senokot-S, Theresa-Colace) 2 tablet PO BID [facility] Last Admin: 12/19/17 09:45 Dose: Not Given Simethicone (Mylicon) 80 mg PO TIDPC [facility] Last Admin: 12/19/17 09:44 Dose: 80 mg Medical Necessity - Tobacco Use Smoking Status: Never smoker Tobacco Use: Non-smoker Assessment/Plan Active and Suspected Problems SAH (subarachnoid hemorrhage) (Acute) Seizure (Acute) Patient is a 32-year-old lady who had subarachnoid hemorrhage 3 days after childbirth which was later complicated by respiratory failure resulting in patient was managed the vent with subsequent seizures managed at [facility] and transferred to [facility] inpatient rehab. 1. Status post subarachnoid hemorrhage complicating child but (5 days after childbirth) resulting in respiratory failure for which patient was managed on the vent. Patient subsequent hospital stay was complicated by seizures and right-sided neglect with aphasia 2. Seizure disorder secondary to above 3. Hypertension: Patient blood pressure still not well controlled 4. DVT prophylaxis Lovenox 5. Obesity with BMI of 35.0 weight loss advised Code Visit Inpatient E&M: 37957 Subs Hosp L3
--- NOTE | 2017-12-19 12:04 | PN_ITS ---
Patient Problems: Active and Suspected Problems SAH (subarachnoid hemorrhage) (Acute) Seizure (Acute) Subjective: Patient is a 32-year-old lady who had subarachnoid hemorrhage 3 days after childbirth which was later complicated by respiratory failure resulting in patient was managed the vent with subsequent seizures managed at [facility] and transferred to [facility] inpatient rehab. Objective: GENERAL: Flat affect HEENT: Clear conjunctiva, NECK; supple, normal thyroid, CHEST: Clear to auscultation bilaterally, HEART: Regular S1 S2, no audible murmurs ABDOMEN: soft, non-tender, normoactive bowel sounds, RECTAL: deferred EXTREMITIES: No edema, no clubbing, no cyanosis. 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, oriented to place and person, SKIN: No Rash Vitals/I&O's: Vital Signs Temp Pulse Resp BP Pulse Ox 97.6 F L 95 16 137/87 H 99 12/19/17 08:41 12/19/17 09:45 12/19/17 08:41 12/19/17 09:45 12/19/17 08:41 Oxygen Delivery Method Room Air Weight: 95.5 kg Body Mass Index (BMI) 35.0 Intake and Output for Last 24 Hours 12/17/17 12/18/17 12/19/17 23:59 23:59 23:59 Intake Total 700 / 700 560 / 560 180 / 180 Balance 700 / 700 560 / 560 180 / 180 Laboratory Results 12/18/17 12:50: Urine Color Yellow, Urine Clarity Clear, Urine pH 6.0, Ur Specific [place] 1.015, Urine Protein Negative, Urine Glucose (UA) Normal, Urine Ketones Negative, Urine Occult Blood Negative, Urine Nitrite Negative, Urine Bilirubin Negative, Urine Urobilinogen Normal, Ur Leukocyte Esterase Negative, Urine RBC 0 SEEN, Urine WBC 0 SEEN, Ur Squamous Epith Cells 0 SEEN, Urine Bacteria 0 SEEN, Urine Mucus 0 SEEN 12/19/17 05:45: WBC 11.2 H, RBC 3.63 L, Hgb 10.7 L, Hct 33.3 L, MCV 91.7, MCH 29.5, MCHC 32.1, RDW 13.3, RDW Differential 43.4, Plt Count 597 H, MPV 8.4, Immature Gran % (Auto) 1.000 H, Neut % (Auto) 72.8 H, Lymph % (Auto) 16.9 L, [place] % (Auto) 5.9, Eos % (Auto) 3.0, Baso % (Auto) 0.4, Absolute Neuts (auto) 8.1 H, Absolute Lymphs (auto) 1.88, Total Counted Not Reportable Current Medications Acetaminophen (Tylenol) 650 mg PO Q6H PRN PRN PRN Reason: Mild Pain (0-3/10)/Headache Hydrocodone Bitart/Acetaminophen ([place] 5mg-325mg) 1 - 2 tablet PO Q4H PRN PRN PRN Reason: MOD-SEVERE PAIN (4-10/10) Bisacodyl (Dulcolax) 10 mg RECTAL .PRN X 1 PRN PRN Reason: Constipation Carvedilol (Coreg) 12.5 mg PO BID [facility] Last Admin: 12/19/17 09:44 Dose: 12.5 mg Enoxaparin Sodium (Lovenox) 40 mg SC DAILY@0600 [facility] Last Admin: 12/19/17 05:29 Dose: 40 mg Escitalopram Oxalate (Lexapro) 10 mg PO DAILY [facility] Last Admin: 12/19/17 09:44 Dose: 10 mg Lacosamide (Vimpat) 100 mg PO BID [facility] Stop: 01/15/18 22:00 Last Admin: 12/19/17 09:44 Dose: 100 mg Lorazepam (Ativan) 0.5 mg PO QHS PRN PRN PRN Reason: Insomnia Magnesium Hydroxide (Milk Of Magnesia) 30 ml PO .PRN X 1 PRN PRN Reason: Constipation Multivit[facility] ([facility]amin) [facility] Last Admin: 12/19/17 09:44 Dose: 1 tablet Nystatin (Nystatin) 500,000 unit PO 4X/DAY [facility] Last Admin: 12/19/17 09:44 Dose: 500,000 unit Ondansetron HCl (Zofran) 4 mg IV Q6H PRN PRN PRN Reason: nausea, emesis Promethazine HCl (Phenergan) 6.25 mg IV Q4H PRN PRN PRN Reason: NAUSEA/VOMITING Senna/Docusate Sodium (Senokot-S, Theresa-Colace) 2 tablet PO BID [facility] Last Admin: 12/19/17 09:45 Dose: Not Given Simethicone (Mylicon) 80 mg PO TIDPC [facility] Last Admin: 12/19/17 09:44 Dose: 80 mg Medical Necessity - Tobacco Use Smoking Status: Never smoker Tobacco Use: Non-smoker Assessment/Plan Active and Suspected Problems SAH (subarachnoid hemorrhage) (Acute) Seizure (Acute) Patient is a 32-year-old lady who had subarachnoid hemorrhage 3 days after childbirth which was later complicated by respiratory failure resulting in patient was managed the vent with subsequent seizures managed at [facility] and transferred to [facility] inpatient rehab. 1. Status post subarachnoid hemorrhage complicating child but (5 days after childbirth) resulting in respiratory failure for which patient was managed on the vent. Patient subsequent hospital stay was complicated by seizures and right-sided neglect with aphasia 2. Seizure disorder secondary to above 3. Hypertension: Patient blood pressure still not well controlled 4. DVT prophylaxis Lovenox 5. Obesity with BMI of 35.0 weight loss advised Code Visit Inpatient E&M: 52966 Subs Hosp L3
[2017-12-19 12:09] VITALS: BMI 35.0
[2017-12-19 13:55] VITALS: O2SAT 99
[2017-12-19 18:12] VITALS: BP 146/85; PULSE 83; RESP 18; O2SAT 98
[2017-12-19] MEDS: HYDROcodone Bitartrate/Apap 5/325 Tablet PO (18:15)
[2017-12-19 21:46] VITALS: BP 139/74; PULSE 96; RESP 16; TEMP 36.6; O2SAT 96
[2017-12-20 00:02] VITALS: BMI 35.0
--- NOTE | 2017-12-20 04:41 | NURSING ---
Reviewed and agree with LPNs fims and handoff
[2017-12-20] MEDS: Enoxaparin 40 MG/0.4 ML Syringe SC (06:33)
[2017-12-20 09:53] VITALS: BP 127/80; PULSE 75; RESP 16; TEMP 36.7; O2SAT 94
[2017-12-20] MEDS: Lacosamide 100 MG Tablet PO ×2 (09:54→21:38)
[2017-12-20] MEDS: Carvedilol 12.5 MG Tablet PO ×2 (09:54→21:38)
[2017-12-20] MEDS: NYSTATIN 500,000 UNIT/5 ML UDC 500000 UNIT PO ×4 (09:54→21:38)
[2017-12-20] MEDS: Multivitamins,Therapeutic Tablet 1 TABLET PO (09:54)
[2017-12-20] MEDS: Escitalopram Oxalate 10 MG Tablet PO (09:54)
[2017-12-20 10:08] VITALS: BMI 35.0
[2017-12-20 22:00] VITALS: BP 145/90; PULSE 75; RESP 16; TEMP 36.7; O2SAT 94
[2017-12-21 00:04] VITALS: BMI 35.0
--- NOTE | 2017-12-21 04:34 | NURSING ---
Reviewed and agree with LPNs fims and handoff
[2017-12-21] MEDS: Enoxaparin 40 MG/0.4 ML Syringe SC (05:24)
[2017-12-21 09:53] VITALS: BP 114/72; PULSE 84; RESP 16; TEMP 36.7; O2SAT 99
[2017-12-21] MEDS: Escitalopram Oxalate 10 MG Tablet PO (09:54)
[2017-12-21] MEDS: Lacosamide 100 MG Tablet PO ×2 (09:54→22:00)
[2017-12-21] MEDS: Multivitamins,Therapeutic Tablet 1 TABLET PO (09:54)
[2017-12-21] MEDS: NYSTATIN 500,000 UNIT/5 ML UDC 500000 UNIT PO ×4 (09:54→22:00)
[2017-12-21] MEDS: Carvedilol 12.5 MG Tablet PO ×2 (09:57→22:00)
[2017-12-21 10:05] VITALS: BMI 35.0
--- NOTE | 2017-12-21 12:34 | PN_ITS ---
Patient Problems: Active and Suspected Problems SAH (subarachnoid hemorrhage) (Acute) Seizure (Acute) Subjective: Patient mood significantly improved tolerating PT well Objective: GENERAL: Flat affect HEENT: Clear conjunctiva, NECK; supple, normal thyroid, CHEST: Clear to auscultation bilaterally, HEART: Regular S1 S2, no audible murmurs ABDOMEN: soft, non-tender, normoactive bowel sounds, RECTAL: deferred EXTREMITIES: No edema, no clubbing, no cyanosis. 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 Current Medications Acetaminophen (Tylenol) 650 mg PO Q6H PRN PRN PRN Reason: Mild Pain (0-3/10)/Headache Hydrocodone Bitart/Acetaminophen ([place] 5mg-325mg) 1 - 2 tablet PO Q4H PRN PRN PRN Reason: MOD-SEVERE PAIN (4-10/10) Last Admin: 12/19/17 18:15 Dose: 2 tablet Bisacodyl (Dulcolax) 10 mg RECTAL .PRN X 1 PRN PRN Reason: Constipation Carvedilol (Coreg) 12.5 mg PO BID [facility] Last Admin: 12/21/17 09:57 Dose: 12.5 mg Enoxaparin Sodium (Lovenox) 40 mg SC DAILY@0600 [facility] Last Admin: 12/21/17 05:24 Dose: 40 mg Escitalopram Oxalate (Lexapro) 10 mg PO DAILY [facility] Last Admin: 12/21/17 09:54 Dose: 10 mg Lacosamide (Vimpat) 100 mg PO BID [facility] Stop: 01/15/18 22:00 Last Admin: 12/21/17 09:54 Dose: 100 mg Lorazepam (Ativan) 0.5 mg PO QHS PRN PRN PRN Reason: Insomnia Magnesium Hydroxide (Milk Of Magnesia) 30 ml PO .PRN X 1 PRN PRN Reason: Constipation Multivitamins (Multivitamin) 1 tablet PO DAILYCM [facility] Last Admin: 12/21/17 09:54 Dose: 1 tablet Nystatin (Nystatin) 500,000 unit PO 4X/DAY [facility] Last Admin: 12/21/17 09:54 Dose: 500,000 unit Ondansetron HCl (Zofran) 4 mg IV Q6H PRN PRN PRN Reason: nausea, emesis Promethazine HCl (Phenergan) 6.25 mg IV Q4H PRN PRN PRN Reason: NAUSEA/VOMITING Senna/Docusate Sodium (Senokot-S, Theresa-Colace) 2 tablet PO BID [facility] Last Admin: 12/21/17 09:56 Dose: Not Given Simethicone (Mylicon) 80 mg PO TIDPC [facility] Last Admin: 12/21/17 09:54 Dose: 80 mg Medical Necessity - Tobacco Use Smoking Status: Never smoker Tobacco Use: Non-smoker Assessment/Plan Active and Suspected Problems SAH (subarachnoid hemorrhage) (Acute) Seizure (Acute) Patient is a 32-year-old lady who had subarachnoid hemorrhage 3 days after childbirth which was later complicated by respiratory failure resulting in patient was managed the vent with subsequent seizures managed at [facility] and transferred to [facility] inpatient rehab. 1. Status post subarachnoid hemorrhage complicating child but (5 days after childbirth) resulting in respiratory failure for which patient was managed on the vent. Patient subsequent hospital stay was complicated by seizures and right-sided neglect with aphasia 2. Seizure disorder secondary to above 3. Hypertension: Patient blood pressure still not well controlled 4. DVT prophylaxis Lovenox 5. Obesity with BMI of 35.0 weight loss advised Code Visit Inpatient E&M: 31962 Subs Hosp L2
[2017-12-21 22:00] VITALS: BP 134/83; PULSE 69; RESP 16; TEMP 36.8; O2SAT 96; BMI 35.0
--- NOTE | 2017-12-22 01:34 | NURSING ---
Reviewed and agree with LPNs fims and handoff
[2017-12-22] MEDS: Enoxaparin 40 MG/0.4 ML Syringe SC (05:41)
[2017-12-22 07:49] VITALS: BP 115/80; PULSE 81; RESP 16; TEMP 36.6; O2SAT 97
[2017-12-22] MEDS: NYSTATIN 500,000 UNIT/5 ML UDC 500000 UNIT PO ×4 (08:02→20:22)
[2017-12-22] MEDS: Escitalopram Oxalate 10 MG Tablet PO (08:02)
[2017-12-22] MEDS: Multivitamins,Therapeutic Tablet 1 TABLET PO (08:02)
[2017-12-22] MEDS: Carvedilol 12.5 MG Tablet PO ×2 (08:02→20:22)
[2017-12-22] MEDS: Lacosamide 100 MG Tablet PO ×2 (08:02→20:22)
--- NOTE | 2017-12-22 09:05 | PCM.PN.NEU ---
Patient Problems: Active and Suspected Problems SAH (subarachnoid hemorrhage) (Acute) Seizure (Acute) Subjective: Staffed in team meeting. Family at bedside. Questions answered. With Physical therapy, she is supervision for getting in and out of the bed, and for transfers. She is able to walk more than 600 feet. She is able to go up and down a flight of stairs at standby assist. In the coming week they will work on her balance and strength. With Occupational therapy, She is able to do all her own personal care with occasionally needing cues to help keep her on task. With Speech therapy, on her previous CLQT assessment on 12/17 she presented with severe cognitive deficits across all five domains, today on re-evaluation of the CLQT assessment there is a huge improvement, she is mild for attention, Moderate for memory and mild for executive functions. She still has a hard time starting a task and then she may start to perseverate while during the task until she is cued to stop. - Physical Exam General: Alert, Oriented x3, Cooperative HEENT: Atraumatic, PERRLA, EOMI, Normocephalic Neck: Supple, No JVD, Negative Carotid Bruits Lungs: Clear to auscultation, Normal air movement Cardiovascular: Regular rate, No murmurs Abdomen: Bowel Sounds Present, Soft, Non Tender Extremities: No edema, Capillary Refill Less than 3 Seconds Skin: No rashes, No breakdown Musculoskeletal: No Tenderness to Palpation of Joints or Extremities Neurological: Cranial nerves II-XII grossly intact Psych/Mental Status: Normal Affect, Appropriate, Alert and oriented to time, place, person, mood and affect Vital Signs Temp Pulse Resp BP Pulse Ox 97.8 F 81 16 115/80 97 12/22/17 07:49 12/22/17 07:49 12/22/17 07:49 12/22/17 07:49 12/22/17 07:49 Oxygen Delivery Method Room Air Weight: 95.5 kg Body Mass Index (BMI) 35.0 Intake and Output for Last 24 Hours 12/20/17 12/21/17 12/22/17 23:59 23:59 23:59 Intake Total 480 / 480 720 / 720 Balance 480 / 480 720 / 720 Microbiology Past 72 Hours 12/18/17 12:50 Urine Culture - Final Urine Catheter - Catheter Culture exhibits no growth. Active Medications Acetaminophen (Tylenol) 650 mg PO Q6H PRN PRN PRN Reason: Mild Pain (0-3/10)/Headache Hydrocodone Bitart/Acetaminophen ([place] 5mg-325mg) 1 - 2 tablet PO Q4H PRN PRN PRN Reason: MOD-SEVERE PAIN (4-10/10) Last Admin: 12/19/17 18:15 Dose: 2 tablet Bisacodyl (Dulcolax) 10 mg RECTAL .PRN X 1 PRN PRN Reason: Constipation Carvedilol (Coreg) 12.5 mg PO BID [facility] Last Admin: 12/22/17 08:02 Dose: 12.5 mg Enoxaparin Sodium (Lovenox) 40 mg SC DAILY@0600 [facility] Last Admin: 12/22/17 05:41 Dose: 40 mg Escitalopram Oxalate (Lexapro) 10 mg PO DAILY [facility] Last Admin: 12/22/17 08:02 Dose: 10 mg Lacosamide (Vimpat) 100 mg PO BID [facility] Stop: 01/15/18 22:00 Last Admin: 12/22/17 08:02 Dose: 100 mg Lorazepam (Ativan) 0.5 mg PO QHS PRN PRN PRN Reason: Insomnia Magnesium Hydroxide (Milk Of Magnesia) 30 ml PO .PRN X 1 PRN PRN Reason: Constipation [facility] Last Admin: 12/22/17 08:02 Dose: 1 tablet Nystatin (Nystatin) 500,000 unit PO 4X/DAY [facility] Last Admin: 12/22/17 08:02 Dose: 500,000 unit Ondansetron HCl (Zofran) 4 mg IV Q6H PRN PRN PRN Reason: nausea, emesis Promethazine HCl (Phenergan) 6.25 mg IV Q4H PRN PRN PRN Reason: NAUSEA/VOMITING Senna/Docusate Sodium (Senokot-S, Theresa-Colace) 2 tablet PO BID [facility] Last Admin: 12/22/17 08:02 Dose: Not Given Simethicone (Mylicon) 80 mg PO TIDPC [facility] Last Admin: 12/22/17 08:02 Dose: 80 mg Medical Necessity - Tobacco Use Smoking Status: Never smoker Tobacco Use: Non-smoker Assessment/Plan Active and Suspected Problems SAH (subarachnoid hemorrhage) (Acute) Seizure (Acute) Debility status post B/L SAH, Complicated by right sided neglect, aphasia, and seizures. Goal of rehab is sabianism of prior level of functional independence. Plan: - Physical therapy for gait and balance - Occupational Therapy for ADLs - Speech therapy - As needed analgesics - Bowel protocol - DVT prophylaxis: SCDs, Lovenox - Hypertension: Stable with good control - incision -> well approximated, well healed, C/D/I, no drainage noted. - Seizures -> stable - continue Vimpat - Depression -> start Lexapro 10mg at HS - direct support worker -> emotional support and counseling - Incontinence of urine with elevated WBC -> Urinalysis sent , was negative for Leukocytes or nitrates. - CLQT re-assessment later today.
--- NOTE | 2017-12-22 09:08 | PN.NEURO_ITS ---
Patient Problems: Active and Suspected Problems SAH (subarachnoid hemorrhage) (Acute) Seizure (Acute) Subjective: Staffed in team meeting. Family at bedside. Questions answered. With Physical therapy, she is supervision for getting in and out of the bed, and for transfers. She is able to walk more than 600 feet. She is able to go up and down a flight of stairs at standby assist. In the coming week they will work on her balance and strength. With Occupational therapy, She is able to do all her own personal care with occasionally needing cues to help keep her on task. With Speech therapy, on her previous CLQT assessment on 12/17 she presented with severe cognitive deficits across all five domains, today on re-evaluation of the CLQT assessment there is a huge improvement, she is mild for attention, Moderate for memory and mild for executive functions. She still has a hard time starting a task and then she may start to perseverate while during the task until she is cued to stop. - Physical Exam General: Alert, Oriented x3, Cooperative HEENT: Atraumatic, PERRLA, EOMI, Normocephalic Neck: Supple, No JVD, Negative Carotid Bruits Lungs: Clear to auscultation, Normal air movement Cardiovascular: Regular rate, No murmurs Abdomen: Bowel Sounds Present, Soft, Non Tender Extremities: No edema, Capillary Refill Less than 3 Seconds Skin: No rashes, No breakdown Musculoskeletal: No Tenderness to Palpation of Joints or Extremities Neurological: Cranial nerves II-XII grossly intact Psych/Mental Status: Normal Affect, Appropriate, Alert and oriented to time, place, person, mood and affect Vital Signs Temp Pulse Resp BP Pulse Ox 97.8 F 81 16 115/80 97 12/22/17 07:49 12/22/17 07:49 12/22/17 07:49 12/22/17 07:49 12/22/17 07:49 Oxygen Delivery Method Room Air Weight: 95.5 kg Body Mass Index (BMI) 35.0 Intake and Output for Last 24 Hours 12/20/17 12/21/17 12/22/17 23:59 23:59 23:59 Intake Total 480 / 480 720 / 720 Balance 480 / 480 720 / 720 Microbiology Past 72 Hours 12/18/17 12:50 Urine Culture - Final Urine Catheter - Catheter Culture exhibits no growth. Active Medications Acetaminophen (Tylenol) 650 mg PO Q6H PRN PRN PRN Reason: Mild Pain (0-3/10)/Headache Hydrocodone Bitart/Acetaminophen ([place] 5mg-325mg) 1 - 2 tablet PO Q4H PRN PRN PRN Reason: MOD-SEVERE PAIN (4-10/10) Last Admin: 12/19/17 18:15 Dose: 2 tablet Bisacodyl (Dulcolax) 10 mg RECTAL .PRN X 1 PRN PRN Reason: Constipation Carvedilol (Coreg) 12.5 mg PO BID [facility] Last Admin: 12/22/17 08:02 Dose: 12.5 mg Enoxaparin Sodium (Lovenox) 40 mg SC DAILY@0600 [facility] Last Admin: 12/22/17 05:41 Dose: 40 mg Escitalopram Oxalate (Lexapro) 10 mg PO DAILY [facility] Last Admin: 12/22/17 08:02 Dose: 10 mg Lacosamide (Vimpat) 100 mg PO BID [facility] Stop: 01/15/18 22:00 Last Admin: 12/22/17 08:02 Dose: 100 mg Lorazepam (Ativan) 0.5 mg PO QHS PRN PRN PRN Reason: Insomnia Magnesium Hydroxide (Milk Of Magnesia) 30 ml PO .PRN X 1 PRN PRN Reason: Constipation [facility] Last Admin: 12/22/17 08:02 Dose: 1 tablet Nystatin (Nystatin) 500,000 unit PO 4X/DAY [facility] Last Admin: 12/22/17 08:02 Dose: 500,000 unit Ondansetron HCl (Zofran) 4 mg IV Q6H PRN PRN PRN Reason: nausea, emesis Promethazine HCl (Phenergan) 6.25 mg IV Q4H PRN PRN PRN Reason: NAUSEA/VOMITING Senna/Docusate Sodium (Senokot-S, Theresa-Colace) 2 tablet PO BID [facility] Last Admin: 12/22/17 08:02 Dose: Not Given Simethicone (Mylicon) 80 mg PO TIDPC [facility] Last Admin: 12/22/17 08:02 Dose: 80 mg Medical Necessity - Tobacco Use Smoking Status: Never smoker Tobacco Use: Non-smoker Assessment/Plan Active and Suspected Problems SAH (subarachnoid hemorrhage) (Acute) Seizure (Acute) Debility status post B/L SAH, Complicated by right sided neglect, aphasia, and seizures. Goal of rehab is [place] of prior level of functional independence. Plan: - Physical therapy for gait and balance - Occupational Therapy for ADLs - Speech therapy - As needed analgesics - Bowel protocol - DVT prophylaxis: SCDs, Lovenox - Hypertension: Stable with good control - incision -> well approximated, well healed, C/D/I, no drainage noted. - Seizures -> stable - continue Vimpat - Depression -> start Lexapro 10mg at HS - residential worker -> emotional support and counseling - Incontinence of urine with elevated WBC -> Urinalysis sent , was negative for Leukocytes or nitrates. - CLQT re-assessment later today.
--- NOTE | 2017-12-22 10:18 | CASEMGMT ---
Team meeting held. Patient present as well as patient mother, Ijeoma along with patient daughter, Mee Salas. Patient plans to discharge home with family. Team currently recommending for patient to have 24hr care within the home at time of discharge. No discharge date set at this time, Speech therapy recommending for patient to continue with stay for anther few days as patient would benefit from continued Speech therapy within an inpatient facility due to the level of patient deficits. Patient and patient family aware that insurance update due on 12/22/17 and that continued stay is not guaranteed. Support given. Will continue to follow. Naina ESPINOZA, CLASSROOM TEACHER
--- NOTE | 2017-12-22 10:39 | CASEMGMT ---
Insurance Clinical information faxed. Pending continued stay approval at this time. Auth#[id number] Naina ESPINOZA, FOREST PATHOLOGY PROFESSOR
[2017-12-22 12:41] VITALS: BMI 35.0
[2017-12-22 20:15] VITALS: BP 118/71; PULSE 89; RESP 16; TEMP 36.9; O2SAT 95; BMI 35.0
--- NOTE | 2017-12-23 01:21 | NURSING ---
REVIEWED AND AGREE WITH LICENSED PRACTICAL VOCATIONAL NURSE'S FIM AND HANDOFF CHARTING.
[2017-12-23] MEDS: Enoxaparin 40 MG/0.4 ML Syringe SC (05:10)
[2017-12-23 07:40] VITALS: BP 113/74; PULSE 76; RESP 16; TEMP 36.7; O2SAT 95
[2017-12-23] MEDS: Multivitamins,Therapeutic Tablet 1 TABLET PO (08:08)
[2017-12-23] MEDS: Lacosamide 100 MG Tablet PO ×2 (08:08→20:57)
[2017-12-23] MEDS: NYSTATIN 500,000 UNIT/5 ML UDC 500000 UNIT PO ×4 (08:08→20:57)
[2017-12-23] MEDS: Escitalopram Oxalate 10 MG Tablet PO (08:08)
[2017-12-23] MEDS: Carvedilol 12.5 MG Tablet PO ×2 (08:08→20:57)
--- NOTE | 2017-12-23 15:15 | CASEMGMT ---
Social Work Spoke with patient and patient mother, Ijeoma in room. , Ronel Salas present as well. This social worker palliative care communicating that continued stay was approved by insurance. Patient voicing understanding and requesting for discharge date to be set for 12/27/17. Spoke with staff/therapy, 12/27/17 is an agreeable discharge date at this time. Patient plans to discharge home with Ijeoma and Ronel Salas at time of discharge. Patient boyfriend Howie. has been involved some per Ijeoma. Patient holding and feeding infant via bottle during interaction. Patient reporting to feel a connection with infant and appearing to be comfortable with patient. Patient supporting infants head and body during feeing. Patient smiling often towards this social worker palliative care and . Ijeoma aware that it is recommended for patient and infant to have supervised interactions now and within the home until cleared otherwise by a medical professional. Patient is also open to a referral to [facility] at time of discharge. Support given. Proposed discharge date: 12/27/17 PLAN: Discharge home with mother and . Naina ESPINOZA, DECK HAND
--- NOTE | 2017-12-23 16:01 | CASEMGMT ---
Insurance Continued stay approved with next update due on 12/29/17. Auth#[id number] Naina ESPINOZA, CYTOGENETIC TECHNICIAN
[2017-12-23 16:56] VITALS: BMI 35.0
--- NOTE | 2017-12-23 17:22 | PN.NEURO_ITS ---
Patient Problems: Active and Suspected Problems SAH (subarachnoid hemorrhage) (Acute) Seizure (Acute) Subjective: Patient seen and examined. No acute events overnight. Tolerating therapy. Denies any shortness of breath or chest. No issues with GI/. - Physical Exam General: Alert, Oriented x3, Cooperative HEENT: Atraumatic, PERRLA, EOMI, Normocephalic Neck: Supple, No JVD, Negative Carotid Bruits Lungs: Clear to auscultation, Normal air movement Cardiovascular: Regular rate, No murmurs Abdomen: Bowel Sounds Present, Soft, Non Tender Extremities: No edema, Capillary Refill Less than 3 Seconds Skin: No rashes, No breakdown Musculoskeletal: No Tenderness to Palpation of Joints or Extremities Neurological: Cranial nerves II-XII grossly intact Psych/Mental Status: Normal Affect, Appropriate Vital Signs Temp Pulse Resp BP Pulse Ox 98.1 F 76 16 113/74 95 12/23/17 07:40 12/23/17 07:40 12/23/17 07:40 12/23/17 07:40 12/23/17 07:40 Oxygen Delivery Method Room Air Weight: 95.5 kg Body Mass Index (BMI) 35.0 Intake and Output for Last 24 Hours 12/21/17 12/22/17 12/23/17 23:59 23:59 23:59 Intake Total 720 / 720 240 / 240 240 / 240 Output Total 500 / 500 450 / 450 Balance 720 / 720 -260 / -260 -210 / -210 Active Medications Acetaminophen (Tylenol) 650 mg PO Q6H PRN PRN PRN Reason: Mild Pain (0-3/10)/Headache Hydrocodone Bitart/Acetaminophen ([place] 5mg-325mg) 1 - 2 tablet PO Q4H PRN PRN PRN Reason: MOD-SEVERE PAIN (4-10/10) Last Admin: 12/19/17 18:15 Dose: 2 tablet Bisacodyl (Dulcolax) 10 mg RECTAL .PRN X 1 PRN PRN Reason: Constipation Carvedilol (Coreg) 12.5 mg PO BID [facility] Last Admin: 12/23/17 08:08 Dose: 12.5 mg Enoxaparin Sodium (Lovenox) 40 mg SC DAILY@0600 [facility] Last Admin: 12/23/17 05:10 Dose: 40 mg Escitalopram Oxalate (Lexapro) 10 mg PO DAILY [facility] Last Admin: 12/23/17 08:08 Dose: 10 mg Lacosamide (Vimpat) 100 mg PO BID [facility] Stop: 01/15/18 22:00 Last Admin: 12/23/17 08:08 Dose: 100 mg Lorazepam (Ativan) 0.5 mg PO QHS PRN PRN PRN Reason: Insomnia Magnesium Hydroxide (Milk Of Magnesia) 30 ml PO .PRN X 1 PRN PRN Reason: Constipation Multivitamins (Multivitamin) 1 tablet PO DAILYCM [facility] Last Admin: 12/23/17 08:08 Dose: 1 tablet Nystatin (Nystatin) 500,000 unit PO 4X/DAY [facility] Last Admin: 12/23/17 12:55 Dose: 500,000 unit Ondansetron HCl (Zofran) 4 mg IV Q6H PRN PRN PRN Reason: nausea, emesis Promethazine HCl (Phenergan) 6.25 mg IV Q4H PRN PRN PRN Reason: NAUSEA/VOMITING Senna/Docusate Sodium (Senokot-S, Theresa-Colace) 2 tablet PO BID [facility] Last Admin: 12/23/17 08:08 Dose: Not Given Simethicone (Mylicon) 80 mg PO TIDPC [facility] Last Admin: 12/23/17 12:55 Dose: 80 mg Medical Necessity - Tobacco Use Smoking Status: Never smoker Tobacco Use: Non-smoker Assessment/Plan Active and Suspected Problems SAH (subarachnoid hemorrhage) (Acute) Seizure (Acute) Debility status post B/L SAH, Complicated by right sided neglect, aphasia, and seizures. Goal of rehab is nondenominational of prior level of functional independence. Plan: - Physical therapy for gait and balance - Occupational Therapy for ADLs - Speech therapy - As needed analgesics - Bowel protocol - DVT prophylaxis: SCDs, Lovenox - Hypertension: Stable with good control - incision -> well approximated, well healed, C/D/I, no drainage noted. - Seizures -> stable - continue Vimpat - Depression -> start Lexapro 10mg at HS - general farmworker -> emotional support and counseling - Incontinence of urine with elevated WBC -> Urinalysis sent , was negative for Leukocytes or nitrates. - CLQT re-assessment vast improvement from previous assessment, will continue to work on these domains.
[2017-12-23 21:00] VITALS: BP 133/74; PULSE 83; RESP 20; TEMP 36.7; O2SAT 96; BMI 35.0
--- NOTE | 2017-12-24 00:36 | NURSING ---
Reviewed and agree with ROLLER SHOP SUPERVISOR documentation and FIMS charting.
[2017-12-24] MEDS: Enoxaparin 40 MG/0.4 ML Syringe SC (06:02)
[2017-12-24 08:09] VITALS: BP 125/70; PULSE 76; RESP 16; TEMP 36.7; O2SAT 94
[2017-12-24 08:10] VITALS: BMI 35.0
[2017-12-24] MEDS: Multivitamins,Therapeutic Tablet 1 TABLET PO (08:13)
[2017-12-24] MEDS: NYSTATIN 500,000 UNIT/5 ML UDC 500000 UNIT PO ×4 (08:13→20:14)
[2017-12-24] MEDS: Carvedilol 12.5 MG Tablet PO ×2 (08:13→20:14)
[2017-12-24] MEDS: Escitalopram Oxalate 10 MG Tablet PO (08:13)
[2017-12-24] MEDS: Lacosamide 100 MG Tablet PO ×2 (08:13→20:15)
--- NOTE | 2017-12-24 10:04 | PCM.PN.NEU ---
Patient Problems: Active and Suspected Problems SAH (subarachnoid hemorrhage) (Acute) Seizure (Acute) Subjective: Patient seen during Occupational therapy session. No acute events overnight. Tolerating therapy. Denies any dizziness, or headaches, blurry vision or double vision. Tolerating regular diet. No issues with GI/. The plan is for discharge on Wednesday 12/27, she will be going home with her mother, will have outpatient Speech therapy, and social work. - Physical Exam General: Alert, Oriented x3, Cooperative HEENT: Atraumatic, PERRLA, EOMI, Normocephalic Neck: Supple, No JVD, Negative Carotid Bruits Lungs: Clear to auscultation, Normal air movement Cardiovascular: Regular rate, No murmurs Abdomen: Bowel Sounds Present, Soft, Non Tender Extremities: No edema, Capillary Refill Less than 3 Seconds Skin: No rashes, No breakdown Musculoskeletal: No Tenderness to Palpation of Joints or Extremities Neurological: Cranial nerves II-XII grossly intact Psych/Mental Status: Normal Affect, Appropriate Vital Signs Temp Pulse Resp BP Pulse Ox 98.1 F 76 16 125/70 H 94 12/24/17 08:09 12/24/17 08:09 12/24/17 08:09 12/24/17 08:09 12/24/17 08:09 Oxygen Delivery Method Room Air Weight: 95.2 kg Body Mass Index (BMI) 35.0 Intake and Output for Last 24 Hours 12/22/17 12/23/17 12/24/17 23:59 23:59 23:59 Intake Total 240 / 240 240 / 240 Output Total 500 / 500 450 / 450 Balance -260 / -260 -210 / -210 Active Medications Acetaminophen (Tylenol) 650 mg PO Q6H PRN PRN PRN Reason: Mild Pain (0-3/10)/Headache Hydrocodone Bitart/Acetaminophen ([place] 5mg-325mg) 1 - 2 tablet PO Q4H PRN PRN PRN Reason: MOD-SEVERE PAIN (4-10/10) Last Admin: 12/19/17 18:15 Dose: 2 tablet Bisacodyl (Dulcolax) 10 mg RECTAL .PRN X 1 PRN PRN Reason: Constipation Carvedilol (Coreg) 12.5 mg PO BID [facility] Last Admin: 12/24/17 08:13 Dose: 12.5 mg Enoxaparin Sodium (Lovenox) 40 mg SC DAILY@0600 [facility] Last Admin: 12/24/17 06:02 Dose: 40 mg Escitalopram Oxalate (Lexapro) 10 mg PO DAILY [facility] Last Admin: 12/24/17 08:13 Dose: 10 mg Lacosamide (Vimpat) 100 mg PO BID [facility] Stop: 01/15/18 22:00 Last Admin: 12/24/17 08:13 Dose: 100 mg Lorazepam (Ativan) 0.5 mg PO QHS PRN PRN PRN Reason: Insomnia Magnesium Hydroxide (Milk Of Magnesia) 30 ml PO .PRN X 1 PRN PRN Reason: Constipation Multivitamins (Multivitamin) 1 tablet PO DAILYCM [facility] Last Admin: 12/24/17 08:13 Dose: 1 tablet Nystatin (Nystatin) 500,000 unit PO 4X/DAY [facility] Last Admin: 12/24/17 08:13 Dose: 500,000 unit Ondansetron HCl (Zofran) 4 mg IV Q6H PRN PRN PRN Reason: nausea, emesis Promethazine HCl (Phenergan) 6.25 mg IV Q4H PRN PRN PRN Reason: NAUSEA/VOMITING Senna/Docusate Sodium (Senokot-S, Theresa-Colace) 2 tablet PO BID [facility] Last Admin: 12/24/17 08:04 Dose: Not Given Simethicone (Mylicon) 80 mg PO TIDPC [facility] Last Admin: 12/24/17 08:13 Dose: 80 mg Medical Necessity - Tobacco Use Smoking Status: Never smoker Tobacco Use: Non-smoker Assessment/Plan Active and Suspected Problems SAH (subarachnoid hemorrhage) (Acute) Seizure (Acute) Debility status post B/L SAH, Complicated by right sided neglect, aphasia, and seizures. Goal of rehab is shinto of prior level of functional independence. Plan: - Physical therapy for gait and balance - Occupational Therapy for ADLs - Speech therapy - As needed analgesics - Bowel protocol - DVT prophylaxis: SCDs, Lovenox - Hypertension: Stable with good control - incision -> well approximated, well healed, C/D/I, no drainage noted. - Seizures -> stable - continue Vimpat - Depression -> start Lexapro 10mg at HS - workers compensation administrator -> emotional support and counseling - Incontinence of urine with elevated WBC -> Urinalysis sent , was negative for Leukocytes or nitrates. - CLQT re-assessment vast improvement from previous assessment, will continue to work on these domains. - Plan is discharge home on Wednesday 12/27, to her Mother house, with outpatient speech therapy and social work.
--- NOTE | 2017-12-24 10:10 | PN.NEURO_ITS ---
Patient Problems: Active and Suspected Problems SAH (subarachnoid hemorrhage) (Acute) Seizure (Acute) Subjective: Patient seen during Occupational therapy session. No acute events overnight. Tolerating therapy. Denies any dizziness, or headaches, blurry vision or double vision. Tolerating regular diet. No issues with GI/. The plan is for discharge on Wednesday 12/27, she will be going home with her mother, will have outpatient Speech therapy, and social work. - Physical Exam General: Alert, Oriented x3, Cooperative HEENT: Atraumatic, PERRLA, EOMI, Normocephalic Neck: Supple, No JVD, Negative Carotid Bruits Lungs: Clear to auscultation, Normal air movement Cardiovascular: Regular rate, No murmurs Abdomen: Bowel Sounds Present, Soft, Non Tender Extremities: No edema, Capillary Refill Less than 3 Seconds Skin: No rashes, No breakdown Musculoskeletal: No Tenderness to Palpation of Joints or Extremities Neurological: Cranial nerves II-XII grossly intact Psych/Mental Status: Normal Affect, Appropriate Vital Signs Temp Pulse Resp BP Pulse Ox 98.1 F 76 16 125/70 H 94 12/24/17 08:09 12/24/17 08:09 12/24/17 08:09 12/24/17 08:09 12/24/17 08:09 Oxygen Delivery Method Room Air Weight: 95.2 kg Body Mass Index (BMI) 35.0 Intake and Output for Last 24 Hours 12/22/17 12/23/17 12/24/17 23:59 23:59 23:59 Intake Total 240 / 240 240 / 240 Output Total 500 / 500 450 / 450 Balance -260 / -260 -210 / -210 Active Medications Acetaminophen (Tylenol) 650 mg PO Q6H PRN PRN PRN Reason: Mild Pain (0-3/10)/Headache Hydrocodone Bitart/Acetaminophen ([place] 5mg-325mg) 1 - 2 tablet PO Q4H PRN PRN PRN Reason: MOD-SEVERE PAIN (4-10/10) Last Admin: 12/19/17 18:15 Dose: 2 tablet Bisacodyl (Dulcolax) 10 mg RECTAL .PRN X 1 PRN PRN Reason: Constipation Carvedilol (Coreg) 12.5 mg PO BID [facility] Last Admin: 12/24/17 08:13 Dose: 12.5 mg Enoxaparin Sodium (Lovenox) 40 mg SC DAILY@0600 [facility] Last Admin: 12/24/17 06:02 Dose: 40 mg Escitalopram Oxalate (Lexapro) 10 mg PO DAILY [facility] Last Admin: 12/24/17 08:13 Dose: 10 mg Lacosamide (Vimpat) 100 mg PO BID [facility] Stop: 01/15/18 22:00 Last Admin: 12/24/17 08:13 Dose: 100 mg Lorazepam (Ativan) 0.5 mg PO QHS PRN PRN PRN Reason: Insomnia Magnesium Hydroxide (Milk Of Magnesia) 30 ml PO .PRN X 1 PRN PRN Reason: Constipation Multivitamins (Multivitamin) 1 tablet PO DAILYCM [facility] Last Admin: 12/24/17 08:13 Dose: 1 tablet Nystatin (Nystatin) 500,000 unit PO 4X/DAY [facility] Last Admin: 12/24/17 08:13 Dose: 500,000 unit Ondansetron HCl (Zofran) 4 mg IV Q6H PRN PRN PRN Reason: nausea, emesis Promethazine HCl (Phenergan) 6.25 mg IV Q4H PRN PRN PRN Reason: NAUSEA/VOMITING Senna/Docusate Sodium (Senokot-S, Theresa-Colace) 2 tablet PO BID [facility] Last Admin: 12/24/17 08:04 Dose: Not Given Simethicone (Mylicon) 80 mg PO TIDPC [facility] Last Admin: 12/24/17 08:13 Dose: 80 mg Medical Necessity - Tobacco Use Smoking Status: Never smoker Tobacco Use: Non-smoker Assessment/Plan Active and Suspected Problems SAH (subarachnoid hemorrhage) (Acute) Seizure (Acute) Debility status post B/L SAH, Complicated by right sided neglect, aphasia, and seizures. Goal of rehab is pentecostal of prior level of functional independence. Plan: - Physical therapy for gait and balance - Occupational Therapy for ADLs - Speech therapy - As needed analgesics - Bowel protocol - DVT prophylaxis: SCDs, Lovenox - Hypertension: Stable with good control - incision -> well approximated, well healed, C/D/I, no drainage noted. - Seizures -> stable - continue Vimpat - Depression -> start Lexapro 10mg at HS - fur floor worker -> emotional support and counseling - Incontinence of urine with elevated WBC -> Urinalysis sent , was negative for Leukocytes or nitrates. - CLQT re-assessment vast improvement from previous assessment, will continue to work on these domains. - Plan is discharge home on Wednesday 12/27, to her Mother house, with outpatient speech therapy and social work.
--- NOTE | 2017-12-24 15:47 | PN_ITS ---
Patient Problems: Active and Suspected Problems SAH (subarachnoid hemorrhage) (Acute) Seizure (Acute) Subjective: no new issues. feeling good. denies any complaints at this time. Vitals/I&O's: Vital Signs Temp Pulse Resp BP Pulse Ox 36.7 C 76 16 125/70 H 94 12/24/17 08:09 12/24/17 08:09 12/24/17 08:09 12/24/17 08:09 12/24/17 08:09 Oxygen Delivery Method Room Air Weight: 95.2 kg Body Mass Index (BMI) 35.0 Intake and Output for Last 24 Hours 12/22/17 12/23/17 12/24/17 23:59 23:59 23:59 Intake Total 240 / 240 240 / 240 Output Total 500 / 500 450 / 450 Balance -260 / -260 -210 / -210 General: Alert, Cooperative, No apparent distress, - - playing a game on her phone. HEENT: Atraumatic, Normocephalic Current Medications Acetaminophen (Tylenol) 650 mg PO Q6H PRN PRN PRN Reason: Mild Pain (0-3/10)/Headache Hydrocodone Bitart/Acetaminophen ([place] 5mg-325mg) 1 - 2 tablet PO Q4H PRN PRN PRN Reason: MOD-SEVERE PAIN (4-10/10) Last Admin: 12/19/17 18:15 Dose: 2 tablet Bisacodyl (Dulcolax) 10 mg RECTAL .PRN X 1 PRN PRN Reason: Constipation Carvedilol (Coreg) 12.5 mg PO BID [facility] Last Admin: 12/24/17 08:13 Dose: 12.5 mg Enoxaparin Sodium (Lovenox) 40 mg SC DAILY@0600 [facility] Last Admin: 12/24/17 06:02 Dose: 40 mg Escitalopram Oxalate (Lexapro) 10 mg PO DAILY [facility] Last Admin: 12/24/17 08:13 Dose: 10 mg Lacosamide (Vimpat) 100 mg PO BID [facility] Stop: 01/15/18 22:00 Last Admin: 12/24/17 08:13 Dose: 100 mg Lorazepam (Ativan) 0.5 mg PO QHS PRN PRN PRN Reason: Insomnia Magnesium Hydroxide (Milk Of Magnesia) 30 ml PO .PRN X 1 PRN PRN Reason: Constipation Multivitamins (Multivitamin) 1 tablet PO DAILYCM [facility] Last Admin: 12/24/17 08:13 Dose: 1 tablet Nystatin (Nystatin) 500,000 unit PO 4X/DAY [facility] Last Admin: 12/24/17 14:01 Dose: 500,000 unit Ondansetron HCl (Zofran) 4 mg IV Q6H PRN PRN PRN Reason: nausea, emesis Promethazine HCl (Phenergan) 6.25 mg IV Q4H PRN PRN PRN Reason: NAUSEA/VOMITING Senna/Docusate Sodium (Senokot-S, Theresa-Colace) 2 tablet PO BID [facility] Last Admin: 12/24/17 08:04 Dose: Not Given Simethicone (Mylicon) 80 mg PO TIDPC [facility] Last Admin: 12/24/17 14:01 Dose: 80 mg Medical Necessity - Tobacco Use Smoking Status: Never smoker Tobacco Use: Non-smoker Assessment/Plan Active and Suspected Problems SAH (subarachnoid hemorrhage) (Acute) Seizure (Acute) 1. Subarachnoid hemorrhage: Nonsurgical. Patient had some frontal lobe involvement and may explain some of her flat affect. Patient has had some issues regards to bonding with her child unclear if is related with the hemorrhage or not. Maintain adequate blood pressure control with keeping systolic blood pressure less than 140. 2. Hypertension: Currently stable at this time. Continue with carvedilol. 3. DVT prophylaxis: Patient is currently on Lovenox. Patient does manifest change in mental status then would have a low threshold to reevaluate for any new bleeds. 4. Polyuria: This was evidenced over at [facility]. There was concern for diabetes insipidus but nephrology had ruled that out. Code Visit Inpatient E&M: 62513 [facility] L1
[2017-12-24 20:11] VITALS: BP 117/69; PULSE 77; RESP 18; TEMP 36.7; O2SAT 95
[2017-12-24 20:19] VITALS: BMI 35.0
[2017-12-25] MEDS: Enoxaparin 40 MG/0.4 ML Syringe SC (05:16)
[2017-12-25 08:32] VITALS: BP 123/71; PULSE 78; RESP 18; TEMP 36.6; O2SAT 97
[2017-12-25] MEDS: NYSTATIN 500,000 UNIT/5 ML UDC 500000 UNIT PO ×4 (09:13→22:02)
[2017-12-25] MEDS: Lacosamide 100 MG Tablet PO ×2 (09:13→22:02)
[2017-12-25] MEDS: Multivitamins,Therapeutic Tablet 1 TABLET PO (09:13)
[2017-12-25] MEDS: Escitalopram Oxalate 10 MG Tablet PO (09:13)
[2017-12-25] MEDS: Carvedilol 12.5 MG Tablet PO ×2 (09:13→22:02)
--- NOTE | 2017-12-25 11:25 | CASEMGMT ---
Social Work Spoke with patient in room. This social media assistant reporting that speech therapy is recommending for patient to continue with services through outpatient therapy. Patient is agreeable to recommendation and requesting for outpatient speech therapy services to be set up through [facility]. Patient also agreeable to a referral being made to [facility]. Patient given information and educated on [facility], [facility], depression and safe sleeping. Able to provide patient with emotional support. Patient presenting with a positive affect and engaged in conversation. Support given. Faxed order for outpatient speech therapy to [facility]. Patient aware that [facility] will contact patient to set up appointment. Faxed referral to [facility]. Proposed discharge date: 12/27/17 PLAN: Discharge home with mother and infant with outpatient speech therapy and [facility]. Naina ESPINOZA, LEVEL GLASS VIAL FILLER
--- NOTE | 2017-12-25 12:35 | PCM.PN.NEU ---
Patient Problems: Active and Suspected Problems SAH (subarachnoid hemorrhage) (Acute) Seizure (Acute) Subjective: Patient seen and examined. No new complaints. Tolerating therapy. Denies any headaches, blurry vision or double vision. Tolerating regular diet. No issues with GI/. Plans are d/c home on Friday, made independent in preparation for discharge. - Physical Exam General: Alert, Oriented x3, Cooperative HEENT: Atraumatic, PERRLA, EOMI, Normocephalic Neck: Supple, No JVD, Negative Carotid Bruits Lungs: Clear to auscultation, Normal air movement Cardiovascular: Regular rate, No murmurs Abdomen: Bowel Sounds Present, Soft, Non Tender Extremities: No edema, Capillary Refill Less than 3 Seconds Skin: No rashes, No breakdown Musculoskeletal: No Tenderness to Palpation of Joints or Extremities Neurological: Cranial nerves II-XII grossly intact Psych/Mental Status: Normal Affect, Appropriate, Alert and oriented to time, place, person, mood and affect Vital Signs Temp Pulse Resp BP Pulse Ox 97.8 F 78 18 123/71 H 97 12/25/17 08:32 12/25/17 08:32 12/25/17 08:32 12/25/17 08:32 12/25/17 08:32 Oxygen Delivery Method Room Air Weight: 95.2 kg Body Mass Index (BMI) 35.0 Intake and Output for Last 24 Hours 12/23/17 12/24/17 12/25/17 23:59 23:59 23:59 Intake Total 240 / 240 Output Total 450 / 450 Balance -210 / -210 Active Medications Acetaminophen (Tylenol) 650 mg PO Q6H PRN PRN PRN Reason: Mild Pain (0-3/10)/Headache Hydrocodone Bitart/Acetaminophen ([place] 5mg-325mg) 1 - 2 tablet PO Q4H PRN PRN PRN Reason: MOD-SEVERE PAIN (4-10/10) Last Admin: 12/19/17 18:15 Dose: 2 tablet Bisacodyl (Dulcolax) 10 mg RECTAL .PRN X 1 PRN PRN Reason: Constipation Carvedilol (Coreg) 12.5 mg PO BID ON LICENSE OF [facility] Last Admin: 12/25/17 09:13 Dose: 12.5 mg Enoxaparin Sodium (Lovenox) 40 mg SC DAILY@0600 ON LICENSE OF [facility] Last Admin: 12/25/17 05:16 Dose: 40 mg Escitalopram Oxalate (Lexapro) 10 mg PO DAILY ON LICENSE OF [facility] Last Admin: 12/25/17 09:13 Dose: 10 mg Lacosamide (Vimpat) 100 mg PO BID ON LICENSE OF [facility] Stop: 01/15/18 22:00 Last Admin: 12/25/17 09:13 Dose: 100 mg Lorazepam (Ativan) 0.5 mg PO QHS PRN PRN PRN Reason: Insomnia Magnesium Hydroxide (Milk Of Magnesia) 30 ml PO .PRN X 1 PRN PRN Reason: Constipation Multivitamins (Multivitamin) 1 tablet PO DAILYCM ON LICENSE OF [facility] Last Admin: 12/25/17 09:13 Dose: 1 tablet Nystatin (Nystatin) 500,000 unit PO 4X/DAY ON LICENSE OF [facility] Last Admin: 12/25/17 09:13 Dose: 500,000 unit Ondansetron HCl (Zofran) 4 mg IV Q6H PRN PRN PRN Reason: nausea, emesis Promethazine HCl (Phenergan) 6.25 mg IV Q4H PRN PRN PRN Reason: NAUSEA/VOMITING Senna/Docusate Sodium (Senokot-S, Theresa-Colace) 2 tablet PO BID ON LICENSE OF [facility] Last Admin: 12/25/17 09:13 Dose: Not Given Simethicone (Mylicon) 80 mg PO TIDPC ON LICENSE OF [facility] Last Admin: 12/25/17 09:13 Dose: 80 mg Medical Necessity - Tobacco Use Smoking Status: Never smoker Tobacco Use: Non-smoker Assessment/Plan Active and Suspected Problems SAH (subarachnoid hemorrhage) (Acute) Seizure (Acute) Debility status post B/L SAH, Complicated by right sided neglect, aphasia, and seizures. Goal of rehab is yazidism of prior level of functional independence. Plan: - Physical therapy for gait and balance - Occupational Therapy for ADLs - Speech therapy - As needed analgesics - Bowel protocol - DVT prophylaxis: SCDs, Lovenox - Hypertension: Stable with good control - incision -> well approximated, well healed, C/D/I, no drainage noted. - Seizures -> stable - continue Vimpat - Depression -> start Lexapro 10mg at HS - day worker -> emotional support and counseling - Incontinence of urine with elevated WBC -> Urinalysis sent , was negative for Leukocytes or nitrates. - CLQT re-assessment vast improvement from previous assessment, will continue to work on these domains. - Plan is discharge home on Wednesday 12/27, to her Mother house, with outpatient speech therapy and social work.
[2017-12-25 16:06] VITALS: BMI 35.0
--- NOTE | 2017-12-25 18:55 | NURSING ---
spoke with venus from dr homero morris office and f/u appt made for discharge. per her she will set up a pcp appt per pts boyfriends request and she will call us back with appt date and time. this nurse offered to set up appt but venus states that she will take care of it and get back to us. venus job honer aware that pt is to be discharged 12/27.
[2017-12-25 20:21] VITALS: BP 121/82; PULSE 82; RESP 17; TEMP 36.7; O2SAT 96
[2017-12-25 21:30] VITALS: BMI 35.0
[2017-12-26] MEDS: Enoxaparin 40 MG/0.4 ML Syringe SC (05:57)
--- NOTE | 2017-12-26 06:00 | NURSING ---
Pt refused morning ADL care at this time and stated she'd prefer to get herself ready after breakfast. Pt is INDEPENDENT and does not require assistance later.
[2017-12-26] MEDS: Multivitamins,Therapeutic Tablet 1 TABLET PO (07:22)
[2017-12-26 08:11] VITALS: BP 122/69; PULSE 88; RESP 17; TEMP 36.8; O2SAT 97
[2017-12-26] MEDS: Carvedilol 12.5 MG Tablet PO ×2 (08:38→21:42)
[2017-12-26] MEDS: Escitalopram Oxalate 10 MG Tablet PO (08:38)
[2017-12-26] MEDS: Lacosamide 100 MG Tablet PO ×2 (08:38→21:42)
--- NOTE | 2017-12-26 13:08 | PCM.RU.DC ---
Rehab Discharge Summary DATE OF ADMISSION: 12/16/17 DATE OF DISCHARGE: 12/27/17 - Rehab Diagnosis SAH Discharge Diet: No Restrictions Discharge Activity: May Not Drive - until cleared by Neurology, May Shower, May Take a Tub Bath Weight Bearing Status: Full weight bearing Call your doctor if you observe: Fever of 101 or Higher, Coldness, Increased Pain, Numbness or Tingling, Change in Color, Inability to urinate, Inability to have a bowel movement, Using more than one pad per hour, Shortness of breath, Dizziness, Fainting spells, Swelling in the ankles, Chest pain, Prolonged hiccoughing, Increased palpitations (irregular heartbeat), Calf discomfort, Uncontrolled pain Home Medications: Medications to take at Discharge Multivitamin [Multiple Vitamins] 1 tab PO DAILY 12/16/17 Acetaminophen [Tylenol Tablet] 650 mg PO Q6H PRN PRN tablet 12/26/17 Carvedilol [Coreg (Beta Margarita)] 12.5 mg PO BID #60 tab 12/26/17 Escitalopram Oxalate [Lexapro] 10 mg PO DAILY #30 tab 12/26/17 Lacosamide [Vimpat] 100 mg PO BID #60 tab 12/26/17 Following Prescrptions Were Given to Patient: Escitalopram Oxalate [Lexapro] 10 mg PO DAILY #30 tab Carvedilol [Coreg (Beta Margairta)] 12.5 mg PO BID #60 tab Lacosamide [Vimpat] 100 mg PO BID #60 tab Primary Care Physician: Care Physician,No Primary [Primary Care Provider] - Please Follow Up With: Christina Diaz NP-C When: January 16, 2018 @ 1:00 PM Please Follow Up With: Shanika Avalos MD Disposition: Home - With outpatient Speech therapy Minutes spent on discharge:: 40 Patient Condition:: Good Rehab Course The patient is a 32 year old right handed female who was admitted to the rehab unit for rehabilitation after suffering bilateral frontal and left parietal SAH, 2/2 preeclampsia s/p . She presented to [place] ED on 12/03/17 with complaints of a severe headache, a head CT was done and she was found to have bilateral SAH, she became anxious and aphasic, was intubated and transferred to [facility] for further treatment. A MARY was done on 12/04/17 which was concerning for a possible Type A distal ascending thoracic aortic dissection, which was ruled out on CTA chest which showed pulsating artifact. She develop RUL pneumonia was treated with antibiotics which she has since completed. She had two seizures on 12/09/17 was started on Vimpat 100mg BID. Developed a fever with leukocytosis of 29, Cultures where obtained and where +MSSA in sputum. 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 With Physical therapy, she is supervision for getting in and out of the bed, and for transfers. She is able to walk more than 600 feet. She is able to go up and down a flight of stairs at standby assist. In the coming week they will work on her balance and strength. With Occupational therapy, She is able to do all her own personal care with occasionally needing cues to help keep her on task. With Speech therapy, on her previous CLQT assessment on 12/17 she presented with severe cognitive deficits across all five domains, today on re-evaluation of the CLQT assessment there is a huge improvement, she is mild for attention, Moderate for memory and mild for executive functions. She will be discharged home with outpatient speech therapy, hospitality workers to help with community resources for her and the baby. She will follow up with Neurology on January 16 at 1300. Meaningful Use Info Meaningful Use Diagnoses (Choose all that apply): Hemorrhagic CVA - CVA Therapy Assessed for PT,OT and/or ST?: Yes - Ischemic Stroke Antithrombotic order at d/c?: Yes Dx of Atrial fib/flutter?: No Anticoagulant at discharge?: No Reason anticoagulant not ordered: Treatment not Indicated Statins at discharge?: No Reason Statin not ordered: Treatment not Indicated
--- NOTE | 2017-12-26 13:18 | DS.PCM_ITS ---
Rehab Discharge Summary DATE OF ADMISSION: 12/16/17 DATE OF DISCHARGE: 12/27/17 - Rehab Diagnosis SAH Discharge Diet: No Restrictions Discharge Activity: May Not Drive - until cleared by Neurology, May Shower, May Take a Tub Bath Weight Bearing Status: Full weight bearing Call your doctor if you observe: Fever of 101 or Higher, Coldness, Increased Pain, Numbness or Tingling, Change in Color, Inability to urinate, Inability to have a bowel movement, Using more than one pad per hour, Shortness of breath, Dizziness, Fainting spells, Swelling in the ankles, Chest pain, Prolonged hiccoughing, Increased palpitations (irregular heartbeat), Calf discomfort, Uncontrolled pain Home Medications: Medications to take at Discharge Multivitamin [Multiple Vitamins] 1 tab PO DAILY 12/16/17 Acetaminophen [Tylenol Tablet] 650 mg PO Q6H PRN PRN tablet 12/26/17 Carvedilol [Coreg (Beta Margarita)] 12.5 mg PO BID #60 tab 12/26/17 Escitalopram Oxalate [Lexapro] 10 mg PO DAILY #30 tab 12/26/17 Lacosamide [Vimpat] 100 mg PO BID #60 tab 12/26/17 Following Prescrptions Were Given to Patient: Escitalopram Oxalate [Lexapro] 10 mg PO DAILY #30 tab Carvedilol [Coreg (Beta Margarita)] 12.5 mg PO BID #60 tab Lacosamide [Vimpat] 100 mg PO BID #60 tab Primary Care Physician: Care Physician,No Primary [Primary Care Provider] - Please Follow Up With: Christina Diaz NP-C When: January 16, 2018 @ 1:00 PM Please Follow Up With: Shanika Avalos MD Disposition: Home - With outpatient Speech therapy Minutes spent on discharge:: 40 Patient Condition:: Good Rehab Course The patient is a 32 year old right handed female who was admitted to the rehab unit for rehabilitation after suffering bilateral frontal and left parietal SAH , 2/2 preeclampsia s/p . She presented to [place] ED on 12/03/17 with complaints of a severe headache, a head CT was done and she was found to have bilateral SAH, she became anxious and aphasic, was intubated and transferred to [facility] for further treatment. A MARY was done on 12/04/17 which was concerning for a possible Type A distal ascending thoracic aortic dissection, which was ruled out on CTA chest which showed pulsating artifact. She develop RUL pneumonia was treated with antibiotics which she has since completed. She had two seizures on 12/09/17 was started on Vimpat 100mg BID. Developed a fever with leukocytosis of 29, Cultures where obtained and where +MSSA in sputum. 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 With Physical therapy, she is supervision for getting in and out of the bed, and for transfers. She is able to walk more than 600 feet. She is able to go up and down a flight of stairs at standby assist. In the coming week they will work on her balance and strength. With Occupational therapy, She is able to do all her own personal care with occasionally needing cues to help keep her on task. With Speech therapy, on her previous CLQT assessment on 12/17 she presented with severe cognitive deficits across all five domains, today on re-evaluation of the CLQT assessment there is a huge improvement, she is mild for attention, Moderate for memory and mild for executive functions. She will be discharged home with outpatient speech therapy , make ready worker to help with community resources for her and the baby. She will follow up with Neurology on January 16 at 1300. Meaningful Use Info Meaningful Use Diagnoses (Choose all that apply): Hemorrhagic CVA - CVA Therapy Assessed for PT,OT and/or ST?: Yes - Ischemic Stroke Antithrombotic order at d/c?: Yes Dx of Atrial fib/flutter?: No Anticoagulant at discharge?: No Reason anticoagulant not ordered: Treatment not Indicated Statins at discharge?: No Reason Statin not ordered: Treatment not Indicated
--- NOTE | 2017-12-26 13:19 | PCM.DC ---
- Discharge Diagnoses Current Active Problems: Current Active and Chronic Problems SAH (subarachnoid hemorrhage) (Acute) Seizure (Acute) Hypertension (Chronic) Reason(s) for Visit for Discharge Instructions: SAH You will use the following diet at home:: Regular Your food should be the consistency of: Regular Your liquids should be the consistency of: Regular/Thin Discharge Activity: May Not Drive - until cleared by Neurology, May Shower, May Take a Tub Bath Weight Bearing Status: Full weight bearing Call your doctor if you observe: Fever of 101 or Higher, Coldness, Increased Pain, Numbness or Tingling, Change in Color, Inability to urinate, Inability to have a bowel movement, Using more than one pad per hour, Shortness of breath, Dizziness, Fainting spells, Swelling in the ankles, Chest pain, Prolonged hiccoughing, Increased palpitations (irregular heartbeat), Calf discomfort, Uncontrolled pain Allergies/Adverse Reactions: Allergies No Known Allergies Allergy (Verified 12/03/17 13:44) Medications to take at Discharge Multivitamin [Multiple Vitamins] 1 tab PO DAILY 12/16/17 Acetaminophen [Tylenol Tablet] 650 mg PO Q6H PRN PRN tablet 12/26/17 Carvedilol [Coreg (Beta Margarita)] 12.5 mg PO BID #60 tab 12/26/17 Escitalopram Oxalate [Lexapro] 10 mg PO DAILY #30 tab 12/26/17 Lacosamide [Vimpat] 100 mg PO BID #60 tab 12/26/17 The following prescriptions were given: Escitalopram Oxalate [Lexapro] 10 mg PO DAILY #30 tab Carvedilol [Coreg (Beta Margarita)] 12.5 mg PO BID #60 tab Lacosamide [Vimpat] 100 mg PO BID #60 tab Primary Care Physician: Care Physician,No Primary [Primary Care Provider] - Please Follow Up With: Christina Diaz NP-C Please Follow Up With: Shanika Avalos MD Proposed Discharge Date: 12/27/17
[2017-12-26 21:40] VITALS: BP 124/78; PULSE 76; RESP 17; TEMP 36.5; O2SAT 98
[2017-12-27] MEDS: Enoxaparin 40 MG/0.4 ML Syringe SC (06:05)
[2017-12-27] MEDS: Multivitamins,Therapeutic Tablet 1 TABLET PO (08:25)
[2017-12-27] MEDS: Escitalopram Oxalate 10 MG Tablet PO (08:25)
[2017-12-27] MEDS: Carvedilol 12.5 MG Tablet PO (08:25)
[2017-12-27] MEDS: Lacosamide 100 MG Tablet PO (08:25)
[2017-12-27 08:44] VITALS: BP 121/88; PULSE 81; RESP 18; TEMP 36.5; O2SAT 99
[2017-12-27 10:00] VITALS: BMI 35.0
--- NOTE | 2017-12-27 10:00 | NURSING ---
Patient and mother verbalized understanding to discharge instructions and post discharge appts and need to continue to take blood pressure.
[2017-12-27 10:05] VITALS: BP 121/88; PULSE 81; RESP 18; TEMP 36.5; O2SAT 99
--- NOTE | 2017-12-29 11:38 | CASEMGMT ---
Insurance Notified insurance of patient discharge on 12/27/17 to home with family. Auth#[id number] Naina ESPINOZA, RETIREMENT PLAN COUNSELOR
== END 2017-12-27 10:05 | disposition home or self-care (01) | DRG 57 ==
PROVIDERS: Nurse Practitioner Acute Care; Admitting Provider Psychiatry & Neurology Neurology
DX: I69.051 Hemiplegia and hemiparesis following nontraumatic subarachnoid hemorrhage affecting right dominant side (principal); G40.89 Other seizures; I69.020 Aphasia following nontraumatic subarachnoid hemorrhage; I69.098 Other sequelae following nontraumatic subarachnoid hemorrhage; I10 Essential (primary) hypertension; R35.8 Other polyuria; F32.9 Major depressive disorder, single episode, unspecified; R32 Unspecified urinary incontinence; Z68.35 Body mass index [BMI] 35.0-35.9, adult; E66.9 Obesity, unspecified; Z71.3 Dietary counseling and surveillance; R41.82 Altered mental status, unspecified
CPT/HCPCS: 36415; 80048; 81001; 85025; 85027; 87086; 92507; 92523; 97110; 97112; 97116; 97162; 97166; 97530; 97535; 97802; A4216

== ENCOUNTER → 2018-02-20 15:56 | Outpatient (CLI) | payer BC, MEDICAID, SELFPAY ==
--- NOTE | 2018-02-20 16:01 | CT_ITS ---
STUDY: CT BRAIN WITHOUT CONTRAST REASON FOR EXAM: Female, 32 years old. Seizure RADIATION DOSAGE (If Supplied By Facility): CTDIvol = ( 44.99 ) mGy, DLP = ( 762.36 ) mGycm TECHNIQUE: Transaxial CT imaging of the brain was performed without administration of intravenous contrast material. Individualized dose optimization techniques were used for this CT. COMPARISON: December 03, 2017 CT scan had FINDINGS: Normal soft tissue structures. Normal calvarium. Normal size ventricles and extra-axial spaces for the patient's age. There is a 2.3 x 1.5 cm focus of low attenuation within the left frontal lobe with a centrally located isodense-appearing nodule which is the same shape and size as the prior study December 03, 2017 focal hemorrhagic lesion. There is a persistent focus of edema or low attenuation within the left posterior parietal lobe. Residual focus of low attenuation within the right frontal lobe measuring 1.0 cm.. Normal basal ganglia and thalami. Normal brainstem. Normal cerebellum. The hemorrhage has resolved since prior study. There are no findings of an acute ischemic infarction. Normal visualized paranasal sinuses. CT/Brain/Head without Contrast IMPRESSION: At least 3 areas of abnormal low attenuation within the brain occluding a left frontal mass measuring 2.3 x 1.5 cm for which further evaluation is warranted with MRI with gadolinium. Prior study demonstrated that these are hemorrhagic. Given the multiplicity consider metastasis and/or underlying vascular malformations. N.B. : Maria Isabel Holguin MA, Other, confirmed on 02/23/2018 09:11:58 (ET) that the referring physician received the results and did not require a verbal consultation. Electronically Signed: Tila Gonzalez MD at 21:49 EDT Tel , Service support , N.B. : Maria Isabel Holguin MA, Other, confirmed on 02/23/2018 09:11:58 (ET) that the referring physician received the results and did not require a verbal consultation.
== END ==
PROVIDERS: Visit Provider Nurse Practitioner Acute Care
DX: S06.6X0A Traumatic subarachnoid hemorrhage without loss of consciousness, initial encounter (principal); S06.5X0A Traumatic subdural hemorrhage without loss of consciousness, initial encounter; R56.9 Unspecified convulsions
CPT/HCPCS: 70450

== ENCOUNTER → 2018-03-03 15:37 | Outpatient (CLI) | payer BC, MEDICAID, SELFPAY ==
--- NOTE | 2018-03-03 15:41 | MRI_ITS ---
STUDY: MRI BRAIN WITH AND WITHOUT CONTRAST REASON FOR EXAM: Female, 32 years old. Intracranial hemorrhage after delivery TECHNIQUE: Standardized multiplanar fat and water weighted pulse sequences were obtained. 10ml ml of Gadavist contrast material was administered intravenously for the contrast portion of the examination. COMPARISON: December 03, 2017 and February 20, 2018 CT brain. FINDINGS: The December 03, 2017 CT examination had shown a curvilinear 2.5 x 0.6 cm subarachnoid hemorrhage in the left frontal lobe. It looks intra-axial in the axial projection but looks subarachnoid in the sagittal view. Other areas of subarachnoid hemorrhage are in the left frontoparietal region and in the right supratentorial area The CT study of February 20, 2018 showed multiple areas of low-attenuation other sites of the diffuse subarachnoid hemorrhages especially the left frontal lobe. The current MRI study demonstrates a T2 bright signal in the left frontal region. This area is isointense to brain on T1. The finding most likely is suggestive of a resolving or resolved subarachnoid hemorrhage. The supraventricular areas of subarachnoid hemorrhage is however not appreciated. The pituitary and pineal regions are normal. The corpus callosum and brainstem are normal. Both cerebellopontine angles are clear. The cerebellar vermis and loops are normal. The ventricles, basal cisterns and the rest of the cortical sulci are normal. There are no calvarial fractures and there is no scalp hematoma.. MRI/Brain W/WO Contrast IMPRESSION: The previously noted areas of subarachnoid hemorrhages in both hemispheres have resolved except for a resolving subarachnoid hemorrhage in the left frontal lobe Electronically Signed: Tahokanoe FinkKristine, at 6:16 EDT Tel , Service support ,
--- NOTE | 2018-03-03 15:41 | MRI_ITS ---
STUDY: MRA OF THE HEAD WITHOUT CONTRAST REASON FOR EXAM: Female, 32 years old. Subdural hematoma TECHNIQUE: 3-D crow-[id number] (TOF) imaging was performed with MIPs. The study was performed unenhanced. COMPARISON: None. FINDINGS: Normal bilateral petrous carotid arteries. Normal right cavernous carotid artery with a normal supraclinoid bifurcation. Normal left cavernous carotid artery with a normal supraclinoid bifurcation. Normal right A1 segments of the anterior cerebral artery. Normal left A1 segments of the anterior cerebral artery. Anterior communicating artery not visualized consistent with normal developmental variant Normal bilateral A2 segments of the anterior cerebral arteries. Normal right M1 and M2 segments of the middle cerebral arteries, with a normal M1 bifurcation. Normal left M1 and M2 segments of the middle cerebral arteries, with a normal M1 bifurcation. Posterior communicating arteries are not visualized consistent with normal developmental variant Normal bilateral vertebral arteries. Normal basilar artery with a normal basilar bifurcation. The visualized bilateral superior cerebellar (SCA) arteries are normal. Normal bilateral P1, P2 and visualized P3 segments of the posterior cerebral arteries. There is no demonstrated aneurysm of the [place] of [place]. There is no major vessel occlusion or hemodynamically significant stenosis. There is no demonstrated abnormality of the visualized brain. MRI/MRA Head ONLY without Contrast IMPRESSION: Normal MRA of the head Electronically Signed: Siddharth Cruz MD at 17:25 EDT , Service support ,
== END ==
PROVIDERS: Visit Provider Nurse Practitioner Acute Care
DX: R93.8 Abnormal findings on diagnostic imaging of other specified body structures (principal); S06.5X0A Traumatic subdural hemorrhage without loss of consciousness, initial encounter; S06.6X0A Traumatic subarachnoid hemorrhage without loss of consciousness, initial encounter
CPT/HCPCS: 70544; 70553; A9585; A4216

== ENCOUNTER → 2018-05-21 10:41 | Outpatient (CLI) | payer BC, MEDICAID, SELFPAY ==
--- NOTE | 2018-05-21 10:46 | CT_ITS ---
STUDY: CT BRAIN WITHOUT CONTRAST REASON FOR EXAM: Female, 32 years old. History of prior cerebral hemorrhage. RADIATION DOSAGE (If Supplied By Facility): CTDIvol = ( 44.99 ) mGy, DLP = ( 745.49 ) mGycm TECHNIQUE: Transaxial CT imaging of the brain was performed without administration of intravenous contrast material. Individualized dose optimization techniques were used for this CT. COMPARISON: Comparison is made with prior study dated February 20, 2018. FINDINGS: Normal soft tissue structures. Normal calvarium. Normal size ventricles and extra-axial spaces for the patient's age. There is a 1.3 cm x 1 cm well-defined hypodensity in the anterior right frontal lobe. A similar appearing rounded hypodensity is seen in the anterior peripheral aspect of the left frontal lobe measuring 2.3 cm x 1.5 cm. On prior examination, these were suspicious areas for hemorrhage. This most likely represents sequela secondary to the hemorrhagic insults. Normal basal ganglia and thalami. Normal brainstem. Normal cerebellum. There is no intracranial hemorrhage. There are no findings of an acute ischemic infarction. Mucosal thickening of the maxillary sinuses bilaterally. CT/Brain/Head without Contrast IMPRESSION: Focal encephalomalacia in both the left frontal and right frontal lobes as described. No acute abnormality is seen at this time. Electronically Signed: Matheus Morales MD at 11:27 EDT Tel [phone], Service support ,
== END ==
PROVIDERS: Family Provider Physician Assistant; PCP Physician Assistant; Visit Provider Psychiatry & Neurology Neurology
DX: Z86.73 Personal history of transient ischemic attack (TIA), and cerebral infarction without residual deficits (principal)
CPT/HCPCS: 70450

== ENCOUNTER → 2018-05-22 09:22 | Outpatient (CLI) | payer BC, MEDICAID, SELFPAY ==
--- NOTE | 2018-05-22 14:34 | EEG ---
- Electroencephalogram Date of service 05/22/2018 History EEG is being done in this 32 yr F to rule out seizures EEG Description: This is an 18 channel EEG with 10-20 lead placement system. Bipolar montages, Referential and Circumferential montages were reviewed. Photic stimulation and Hyperventilation were performed. The posterior dominant rhythm is 11 HZ synchronous, symmetric, reacting to eye opening and closing. Photo stimulation elicited normal driving response but no abnormal photoparoxysmal response, Hyperventilation did not elicit any abnormal photoparoxysmal response. Sleep was identified. Vertex waves seen. There is no abnormal background slowing noted. There was no epileptiform discharges or electrographic seizures noted during this recording. EKG artefact noted during the record. EEG Interpretation This is a normal awake and asleep EEG. There is no epileptiform discharges or electrographic seizures noted during the record.
== END ==
PROVIDERS: Family Provider Physician Assistant; PCP Physician Assistant; Visit Provider Psychiatry & Neurology Neurology
DX: Z86.73 Personal history of transient ischemic attack (TIA), and cerebral infarction without residual deficits (principal)
CPT/HCPCS: 95819

== ENCOUNTER → 2019-04-26 17:06 | Outpatient (CLI) | payer BC, MEDICAID, SELFPAY ==
--- NOTE | 2019-04-26 17:15 | MRI_ITS ---
STUDY: MRI BRAIN WITHOUT CONTRAST REASON FOR EXAM: Female, 33 years old. Headaches, history of hemorrhage TECHNIQUE: Standardized multiplanar fat and water weighted pulse sequences were obtained. COMPARISON: 21 May 2018, 03 March 2018 FINDINGS: There are small bilateral frontal and left parietal hemosiderin stained wedge-shaped regions of encephalomalacia. These have involuted since prior. There is no acute intracranial hemorrhage on MR. There is no acute infarct. There is no mass effect, midline shift, extra parenchymal fluid collections, hydrocephalus or herniation. Major vascular flow structures are preserved. MRI/Brain without Contrast IMPRESSION: 1. No acute findings on MR. If detection of acute intracranial hemorrhage is necessary CT is a more accurate modality. 2. Sequelae of prior parenchymal and subarachnoid hemorrhages. Electronically Signed: Salome Rao, at 18:09 EDT Tel , Service support ,
== END ==
PROVIDERS: Family Provider Physician Assistant; PCP Physician Assistant; Referring Provider Psychiatry & Neurology Neurology; Visit Provider Psychiatry & Neurology Neurology
DX: I60.9 Nontraumatic subarachnoid hemorrhage, unspecified (principal); R51 Headache; R56.9 Unspecified convulsions
CPT/HCPCS: 70551

== ENCOUNTER 2024-04-30 09:06 | Emergency (ER) | payer BC, SELFPAY ==
[2024-04-30 09:06] VITALS: BP 142/90; PULSE 62; RESP 16; TEMP 36.3; O2SAT 100; BMI 44.1
--- NOTE | 2024-04-30 09:33 | ED.VIS.LOWEX ---
HPI History of Present Illness HPI Narrative: Healthy 38-year-old female no significant past medical history. Currently on no medications. Several months ago fell on her deck landing on a paving stone on her right knee. Said it was swollen and bruised she did not get evaluated eventually got better she has had some intermittent pain since that time. Last night was walking up several steps felt pain in her knee a popping sound and has had trouble bearing weight. Denies any fever. No prior knee surgery. Chief Complaint: Lower Extremity Injury Informant: patient Occured/Mechanism Mechanism/Context: Yes injury Onset/Context/Timing Onset: Yesterday Context: Sudden Onset Timing: Continuous Quality of Pain: Sharp Current Severity: Mild Maximum Severity: Mild Narrative Narrative: 38-year-old female injured her right knee several months ago. Never had it evaluated. Last night was walking up steps heard a pop in her knee gave out and she has had pain since that time. Prior similar symptoms: No Recent Illness/Hospitalization: No PFSH PFSH Medical History no medical history no medical history Home Medications ?Medication ?Instructions ?Recorded ?Last Taken ?Type multivitamin (Multiple Vitamins 1 tab PO DAILY VITAMIN 12/16/17 Unknown History tablet) acetaminophen 325 mg tablet 650 mg (2 x 325 mg) PO Q6H PRN PRN 12/26/17 Unknown Rx (Tylenol) Mild Pain (0-3/10)/Headache carvedilol 12.5 mg tablet 12.5 mg PO BID BLOOD PRESSURE #60 12/26/17 Unknown Rx tabs escitalopram oxalate 10 mg tablet 10 mg PO DAILY #30 tabs 12/26/17 Unknown Rx lacosamide 100 mg tablet 100 mg PO BID #60 tabs 12/26/17 Unknown Rx Allergy/AdvReac Type Severity Reaction Status Date / Time No Known Allergies Allergy Verified 04/30/24 09:06 Surgical History no surgical history no surgical history Social History Smoking Status: Never smoker ROS ROS ED ROS Narrative Denies recent illness Constitutional Constitutional ED: Denies fever(s) Eyes Eyes: Denies blurry vision ENT ENT ED: Denies ear pain Cardiovascular Cardiovascular: Denies chest pain Respiratory/Chest Respiratory/Chest: Denies cough Gastrointestinal Gastrointestinal: Denies abdominal pain Genitourinary Genitourinary ED: Denies dysuria Musculoskeletal Musculoskeletal: Denies arthralgias Integumentary Denies abscess Neurologic Neurologic: Denies headache(s) Psychiatric Psychiatric: Denies anxiety or depression Endocrine Endocrinology: Denies polydipsia Hematologic/Lymphatic Hematologic/Lymphatic: Denies easy bleeding Allergic/Immunologic Allergic/Immunologic ED: Denies mouth swelling, tongue swelling or urticaria EXAM Physical Exam Narrative Exam Narrative: 38-year-old female no acute distress vital signs stable afebrile. H EENT exam unremarkable. Neck nontender no lymphadenopathy. Lungs clear to auscultation bilaterally. Heart regular rhythm rate about 60 no murmur. Abdomen soft nontender. Moving all 4 extremities. Neurovascular intact. Right knee minimal swelling. No large effusion. She is able to flex and extend the knee. ACL and PCL appear to be intact as do the MCL and LCL. Good endpoints. Quadriceps patellar tendons intact. She is able to extend the knee to 180 degrees. She can lift her leg off the bed. Normal dorsi plantarflexion touch sensation of right foot. There is no redness to the knee. Const Vital Signs: 04/30/24 09:06 Temperature 97.4 F L Temperature Source Temporal Pulse Rate 62 Respiratory Rate 16 Blood Pressure 142/90 H Blood Pressure Mean 107 Pulse Ox 100 Oxygen Delivery Method Room Air Positive well nourished and well developed; Negative for cachectic, contractures or unkempt General Appearance ED: well developed and NAD; Negative for unkempt, cachectic or contractures Nutritional Appearance: Negative for cachectic HEENT Reports moist mucous membranes normocephalic and atraumatic; Negative for trauma or tenderness Eyes PERRL General Eye ED: Negative for other Neck full ROM and supple Thyroid: Negative for tender Lymph Lymphatic: Negative for other Chest Wall inspection of chest normal and palpation of chest normal Chest: Negative for other Resp normal respiratory effort, no retractions and clear to auscultation bilaterally Effort and Inspection: Negative for pain with movement Auscultation: Negative for rales, rhonchi, wheezes or diminished lung sounds Cardio regular rate, regular rhythm, S1 normal heart sound, S2 normal heart sound and no murmurs Rate: Negative for bradycardia or tachycardic Rhythm: Negative for abnormal rhythm Bruits: Negative for other GI non-tender, non-distended and no masses Inspection: Negative for abdominal distention Auscultation: normoactive bowel sounds Palpation: soft; Negative for tender, guarding or rebound tenderness present Back/Spine no CVA tenderness General Back: Negative for CVA tenderness Cervical Spine: Negative for cervical spine tenderness Thoracic Spine / Upper Back: Negative for thoracic spinal tenderness Lumbar Spine / Lower Back: Negative for lumbar spinal tenderness Extremity normal to inspection and full ROM Extremity Narrative: Except right knee mild swelling. No large effusion. Able to do flexion extension. Can extend to 180 degrees. Able lift leg off the bed. ACL and PCL, MCL and LCL appear to be intact. Patella normal position. No cellulitis. No septic joint. General Extremety ED: Yes weight-bearing difficulty General Extremity: weight-bearing difficulty Neuro oriented x3 and CN's II-XII intact bilaterally Sensorium / Orientation: alert, oriented to person, oriented to place and oriented to time; Negative for orientation impaired, confused, lethargic or stuporous Motor Exam: strength 5/5 throughout Psych mental status grossly normal Appearance: Negative for unkempt Speech: No other Mood & Affect: Negative for anxious Skin no wounds Lesions: no lesions Rashes: no rashes Trauma: Negative for abrasion or laceration MDM MDM MDM Narrative Medical decision making narrative: 38-year-old female right knee injury several months ago. Last night while walking up steps heard a pop, knee gave out and now is having pain with weightbearing. Knee x-ray being obtained. Repeat exam unchanged. Patient is comfortable being discharged home. Outpatient follow-up with orthopedics if not improving with ice and anti-inflammatories. She does not feel she needs crutches. History & Record Review Discussion w/independent historian: Patient and Family Radiography Diagnostic Testing: Clinical Impression(s) from Imaging Studies Knee X-Ray 04/30/24 09:50 IMPRESSION: Normal x-ray examination of the knee. Electronically Signed: Matheus Morales MD at 10:23 EDT , Knee x-ray, 4 views, interpreted both by myself and the radiologist shows no acute abnormality. No fracture or dislocation. I did go over the x-rays with the patient. I did explain to her that this obviously does not show soft tissue possible injuries. Discharge Plan Triage Chief Complaint: Lower Extremity Injury ED Provider: Shimon Dow Dx/Rx/DC Orders Clinical Impression: Acute knee pain Instructions: ED Knee Sprain Prescriptions: No Action multivitamin [Multiple Vitamins] 1 EACH tablet 1 tab PO DAILY acetaminophen [Tylenol] 325 MG tablet 650 mg PO Q6H PRN PRN (Reason: Mild Pain (0-3/10)/Headache) 0RF escitalopram oxalate 10 MG tablet 10 mg PO DAILY Qty: 30 0RF Patient Comments: for depression lacosamide 100 MG tablet 100 mg PO BID Qty: 60 0RF Patient Comments: for seizures carvedilol 12.5 MG tablet 12.5 mg PO BID Qty: 60 0RF Primary Care Provider: Jasmeet Watt Referrals: Titus Oconnor DO [Med Staff - Active Staff] - 10-14 Days if not better Jean-Pierre Maloney MD [Med Staff - Active Staff] - 10-14 Days if not better Jasmeet Watt PA [Primary Care Provider] - Activity Restrictions/Additional Instructions: X-rays look good. Obviously there is do not show the tendon, ligament or cartilage. The tendon the ligaments appear to be in good shape. Concern would be could you have a tear in the cartilage from that prior fall and injury of your knee several months ago. Ice. Motrin for pain and inflammation and Tylenol for pain. If this is not getting better in 1 to 2 weeks follow-up with orthopedics to have it reevaluated. Print Language: Maltese Disposition Disposition: Home, Self Care
--- NOTE | 2024-04-30 09:50 | RAD_ITS ---
STUDY: X-RAY - RIGHT KNEE REASON FOR EXAM: Female, 38 years old. Right knee pain following a fall. TECHNIQUE: 4 view(s) of the knee. COMPARISON: None. FINDINGS: Normal visualized distal femur. Normal visualized proximal tibia and fibula. Normal proximal tibiofibular articulation. Normal medial femorotibial compartment. Normal lateral femorotibial compartment. Normal patellofemoral articulation. The soft tissue structures are unremarkable. RAD/Knee 4 or More Views IMPRESSION: Normal x-ray examination of the knee. Electronically Signed: Matheus Morales MD at 10:23 EDT ,
== END 2024-04-30 11:18 | disposition home or self-care (01) ==
PROVIDERS: Emergency Provider Emergency Medicine; PCP Physician Assistant; Visit Provider Emergency Medicine
DX: M25.561 Pain in right knee (principal)
CPT/HCPCS: 73564; 99282

== ENCOUNTER 2024-12-24 09:55 | Outpatient (CLI) | payer BC, SELFPAY ==
--- NOTE | 2024-12-03 07:24 | PAT.ANESEVAL ---
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 When Was Last Pacemaker Check QUESTION #4 FULL TEXT: You/Your Family Experience fever (hyperthermia) with Anesthesia Last Oral Intake Last Oral intake: Last Oral Intake NPO since Meds taken in AM with sips of water? Meds patient instructed to take am of surgery PONV PONV - treating and pumping supervisor: PONV - treating and pumping supervisor Female Yes 12/02/24 15:35 HX of Motion Sickness No 12/02/24 15:35 HX of N/V After Surgery No 12/02/24 15:35 Non-Smoker Yes 12/02/24 15:35 Duration of Surgery greater No 12/02/24 15:35 than 60 minutes Number of Risk Factors 2 12/02/24 15:35 PONV Score Moderate Risk 12/02/24 15:35 Height & Weight Height & Weight: Anesthesia: Height & Weight Height 5 ft 5 in 04/30/24 09:06 Respiratory Assessment Respiratory Assessment - treating and pumping supervisor: Respiratory Tract Infection Hx - treating and pumping supervisor Hx Respiratory Tract Infection No 12/02/24 15:35 STOP Sleep Apnea STOP Sleep Apnea - treating and pumping supervisor: STOP Sleep Apnea - treating and pumping supervisor Hx Hypertension No 12/02/24 15:35 Hx Sleep Apnea No 12/02/24 15:35 CPAP No 12/16/17 20:21 BIPAP No 12/16/17 20:21 Do you snore loudly (louder No 12/02/24 15:35 than talking or can be heard Do you often feel tired/ No 12/02/24 15:35 fatigued/ sleepy during daytime? Has anyone observed you stop No 12/02/24 15:35 breathing during sleep? STOP Results Negative 12/02/24 15:35 QUESTION #5 FULL TEXT : Do you snore loudly (louder than talking or can be heard through closed doors)? 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 Specify any problems Hx of Preganancy in last 3 No 12/02/24 15:35 Months Nurse Filling Out Transfusion [facility] 12/02/24 15:35 & Questions: Date: 12/02/24 12/02/24 15:35 Time: 15:53 12/02/24 15:35 Patient unable to answer at this time (ie. confused, unrespo /Reproduction History /Reproductive History - treating and pumping supervisor: /Reproductive Hx- treating and pumping supervisor Hx Now No 12/02/24 15:35 Gestational Age (in weeks): EDC: Hx Hx Para Hx Section SAB No 12/02/24 15:35 PFSH Medical History Wears glasses Anxiety Migraine headache Stroke/cerebrovascular accident Seizures Non-smoker Home Medications ?Medication ?Instructions ?Recorded ?Last Taken ?Type NK 12/02/24 Unknown History Allergy/AdvReac Type Severity Reaction Status Date / Time No Known Allergies Allergy Verified 12/02/24 15:34 Surgical History History of D&C History of Social History Smoking Status: Never smoker Audit: Pertinent Findings Current Visit Impressions Current Visit Impressions: Patient prior hx appears to be from pre eclmpsia 6 days post csection. Recommendation Anesthesia Recommendation Anesthesia recommendation: OPTIMIZED for anesthesia
--- NOTE | 2024-12-06 10:35 | HP.PCM_ITS ---
History and Physical Date of Admission: 12/24/24 HPI: The patient is a 39 year old female presenting for pre-operative visit. She is scheduled for Hysteroscopy D&C, polyp resection and IUD insertion for heavy menses, adenomyosis, endometrial polyp and possible arcutate uterus on 12/24/24. Procedure discussed along with risks, benefits and complications. Other alternatives discussed for management. Consent form signed? Yes. ? ? PAST MEDICAL HISTORY PAST MEDICAL HISTORYDiagnosisDate?Hypertension in , preeclampsia, severe, condition12/03/2017?Pneumonia??during hospitalization for subarachnoid hemorrhage?Pneumonia of both lower lobes due to methicillin susc eptible Staphylococcus aureus (MSSA) ([facility] [place])01/24/2023? admit for SAH, intubated: 12/10/17 new RUL infiltrate which grew out MSSA on sputum culture. Had fever, WBC elevation to 29K. Treated with Cefepime x 3 days switched to Ancef for 4 days. Extubated 12/11/17?Post depression06/03/2018? [id number]/22/2018?Right thyroid nodule05/03/2018?Seizure (HCC)12/09/2017?after subarachnoid hemorrhage?Subarachnoid hemorrhage (HCC)12/03/2017?6 days after c- section. ? ? PAST SURGICAL HISTORY PAST SURGICAL HISTORYProcedureLateralityDate? DELIVERY ONLY?11/27/2017?D&C, DIAG AND/OR THERAPEUTIC???x 2 Elective TOP ? ? ? CURRENT MEDICATIONS No current outpatient medications on file.?No current facility-administered medications for this visit. ? ? ALLERGIES: Lidocaine ? PERSONAL HISTORY: SOCIAL HISTORY Social History?Tobacco Use?Smoking status:Never?Smokeless tobacco:NeverVaping Use?Vaping status:Never UsedSubstance Use Topics?Alcohol use:No?Drug use:No ? FAMILY HISTORY: FAMILY HISTORY FAMILY HISTORY ProblemRelationAge of Onset ?HypertensionFather??HyperlipidemiaFather??AllergiesSister??CancerMaternal Grandmother?? adrenal?CancerPaternal Grandmother??DiabetesPaternal Aunt??DiabetesPaternal Aunt??DiabetesPaternal Uncle? ? ? REVIEW OF SYMPTOMS: GENERAL: denies fevers or chills ENDOCRINOLOGY: has not been on steroids Cardiology : denies palpitations or chest pain Respiratory: denies SOB or cough Hematology: denies history of prolonged bleeding or easy bruising or VTE Allergy: Denies history of personal or family history of allergy to anesthesia ? PHYSICAL EXAMINATION: ? VITALS: Blood pressure 126/82, height 164.5 cm (5' 4.75), weight 112.9 kg (249 lb), last menstrual period 10/20/2024. ? GENERAL: The patient is well nourished, well hydrated in no acute distress. , The patient is oriented to time, place, and person. NECK: Supple. No lynphadenopathy, normal thyroid, no thyromegaly. LUNGS: Clear to auscultation bilaterally. no wheezes, rhonchi or rales HEART: Regular rate and rhythm, Normal heart sounds, and No murmurs or gallops ? PELVIC US 09/21/24: Impression The contour of the uterus and the endometrial cavity were evaluated with 3-D imaging. Findings are suggestive of arcuate uterus. The uterus is anteverted and measures 111 mm x 53 mm x 71 mm. The myometrium is asymmetrically thickened, echogenic, heterogeneous but no obvious fibroids are observed. This finding is suggestive of adenomyosis. The endometrial thickness is 5.8 mm. There is an echogenic area within the anterior endometrium with vascular flow that ?is suspicious for an anterior endometrial polyp that measures 11 mm x 9 mm x 4 mm. The right ovary measures 26 mm x 25 mm x 19 mm. The left ovary measures 21 mm x 20 mm x 15 mm. There is no free fluid visualized. Technique: Three dimensional imaging was created on a dedicated stand-alone 3D workstation with images created and archived, and supervised and reviewed by the interpreting physician utilizing images from a US Scan performed on 09/21/24. Recommendations Consider hysteroscopic evaluation and management of intracavitary lesion if clinically indicated. Ultrasound findings suggestive for adenomyosis. Clinical correlation is recommended. ? ? ? IMPRESSION: arcuate uterus, adenomyosis, AUB, endometrial polyp ? PLAN: The risks/benefits/alternatives and personal involved for the planned hsyteroscopy D&C, polyp resection and IUD insertion were reviewed with the patient. Her questions were answered to her satisfaction and she desires to proceed. Consent was signed. I reviewed with her postop instructions and expectations. ? ? I have reviewed and updated past medical and surgical history, medications and allergies Assessment & Plan Assessment/Plan (1) Arcuate uterus: (2) Abnormal uterine bleeding (AUB): (3) Adenomyosis: (4) Endometrial polyp:
[2024-12-24 08:27] LABS: Internal QC Validated? YES +Cl - CLEAR BKGD
[2024-12-24 08:29] LABS: Pregnancy, Urine Positive Negative
[2024-12-24 08:40] VITALS: BP 127/81; PULSE 74; RESP 16; TEMP 36.8; O2SAT 100; BMI 41.4
--- NOTE | 2024-12-24 08:44 | NURSING ---
Positive urine test, will drawn serum preg.
[2024-12-24 08:55] LABS: Hematocrit 34.3 % (37-47); Hemoglobin 11.6 g/dL (12.0-15.0); Mean Corp Hgb Conc 33.8 g/dL (32-36); Mean Corpuscular Hgb 28.6 pg (27.0-32.0); Mean Corpuscular Volume 84.7 fL (81-99); Platelet Count 282 K/mm3 (150-450); RBC Distribution Width CV 13.8 % (11.6-14.6); RBC Distribution Width SD 42.9 fl (35.1-43.9); Red Blood Count 4.05 M/mm3 (4.2-5.4); White Blood Count 7.8 K/mm3 (4.4-11.0)
--- NOTE | 2024-12-24 09:03 | PCM.PRE.AN2 ---
ASA Classification* ASA Classification ASA Classification: 3 Assessment & Plan Anesthesia* Anesthesia Assessment Anesthesia Assessment: Discussed sedation and/or anesthesia options, risks, benefits, and alternatives with patient/parents/legal guardian/POA. Questions invited. The patient/parents/legal guardian/POA seems to understand and agrees to proceed with anesthesia plan. Reviewed the physical assessment, medical history, allergy history and patient home medications list prior to surgery/procedure/anesthetic and documented any changes. Performed airway and anesthesia risk assessments. Anesthesia Type Anesthesia Type: MAC Anesthesia Focused Assessment* Temperature: 98.3 F Pulse Rate: 74 Blood Pressure: 127/81 Respiratory Rate: 16 Pulse Ox: 100 Airway Assessment Mouth opens: >3 cm Mallampati Score: II Focused Labs Anesthesia Preop lab: CBC WBC 7.8 K/mm3 (4.4-11.0) 12/24/24 08:35 12/24/24 RBC 4.05 M/mm3 (4.2-5.4) L 12/24/24 08:35 12/24/24 Hgb 11.6 g/dL (12.0-15.0) L 12/24/24 08:35 12/24/24 Hct 34.3 % (37-47) L 12/24/24 08:35 12/24/24 Plt Count 282 K/mm3 (150-450) 12/24/24 08:35 12/24/24 CHEMISTRY Potassium 3.8 mmol/L (3.5-5.1) 12/18/17 05:50 12/18/17 Sodium 142 mmol/L (136-145) 12/18/17 05:50 12/18/17 Magnesium 1.7 mg/dL (1.6-2.6) 12/03/17 13:45 12/03/17 BUN 15 mg/dL (7-18) 12/18/17 05:50 12/18/17 Creatinine 0.65 mg/dL (0.55-1.02) 12/18/17 05:50 12/18/17 Glucose 101 mg/dL (74-106) 12/18/17 05:50 12/18/17 COAG PT 13.1 SECONDS (11.7-14.9) 12/03/17 13:45 12/03/17 HCG, Quant Pending 12/24/24 08:35 12/24/24 Urine Test Positive Negative H 12/24/24 08:15 12/24/24 Pre-Assessment Diagnosis/Proposed Procedure Planned Operative Procedure(s): HYSTEROSCOPY, D&C SYMPHION, POSSIBLE POLYP RESECTION Anesthesia History 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 When Was Last Pacemaker Check QUESTION #4 FULL TEXT: You/Your Family Experience fever (hyperthermia) with Anesthesia Last Oral Intake Last Oral intake: Last Oral Intake NPO since 00:00 12/24/24 08:40 Meds taken in AM with sips of No 12/24/24 08:40 water? Meds patient instructed to take am of surgery PONV PONV - biodiesel plant manager: PONV - biodiesel plant manager Female Yes 12/02/24 15:35 HX of Motion Sickness No 12/02/24 15:35 HX of N/V After Surgery No 12/02/24 15:35 Non-Smoker Yes 12/02/24 15:35 Duration of Surgery greater No 12/02/24 15:35 than 60 minutes Number of Risk Factors 2 12/02/24 15:35 PONV Score Moderate Risk 12/02/24 15:35 Height & Weight Height & Weight: Anesthesia: Height & Weight Height 5 ft 5 in 12/24/24 08:40 Weight: 113 kg 12/24/24 08:40 Body Mass Index (BMI) 41.4 12/24/24 08:40 Respiratory Assessment Respiratory Assessment - biodiesel plant manager: Respiratory Tract Infection Hx - biodiesel plant manager Hx Respiratory Tract Infection No 12/02/24 15:35 STOP Sleep Apnea STOP Sleep Apnea - biodiesel plant manager: STOP Sleep Apnea - biodiesel plant manager Hx Hypertension No 12/02/24 15:35 Hx Sleep Apnea No 12/02/24 15:35 CPAP No 12/16/17 20:21 BIPAP No 12/16/17 20:21 Do you snore loudly (louder No 12/02/24 15:35 than talking or can be heard Do you often feel tired/ No 12/02/24 15:35 fatigued/ sleepy during daytime? Has anyone observed you stop No 12/02/24 15:35 breathing during sleep? STOP Results Negative 12/02/24 15:35 QUESTION #5 FULL TEXT : Do you snore loudly (louder than talking or can be heard through closed doors)? 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: Tobacco Use History - biodiesel plant manager Tobacco Use Smoking Status Never smoker 12/02/24 15:35 Hx Tobacco Use No 12/02/24 15:35 Years Smoking Packs Smoked per Day Smoking Cessation Date was within the last 15 years Hx Smoking Cessation Date Hx Smoking Cessation Counseling Hematologic Medial History Hematologic Hx - biodiesel plant manager: Hematologic Medical Hx - animal rehabilitator Hx of Blood Transfusion No 12/02/24 15:35 Hx of Transfusion in last 3 No 12/02/24 15:35 Months Date of Last Transfusion (if within last 3 months) Ever experience any problems No 12/02/24 15:35 with transfusion(s)? Specify any problems Hx of Preganancy in last 3 No 12/02/24 15:35 Months Nurse Filling Out Transfusion [facility] 12/02/24 15:35 & Questions: Date: 12/02/24 12/02/24 15:35 Time: 15:53 12/02/24 15:35 Patient unable to answer at this time (ie. confused, unrespo /Reproduction History /Reproductive History - biodiesel plant manager: /Reproductive Hx- biodiesel plant manager Hx Now No 12/02/24 15:35 Gestational Age (in weeks): EDC: Hx Hx Para Hx Section SAB No 12/02/24 15:35 Active Medications Active Medications: Current Medications Generic Name Dose Route Start Last Admin Trade Name Freq PRN Reason Stop Dose Admin Acetaminophen 1,000 mg 12/24/24 10:10 Acetaminophen 500 Mg Tablet PO 12/24/24 10:11 X1 ONE Ketorolac Tromethamine 30 mg 12/24/24 10:10 Ketorolac 30 Mg/Ml Syringe IV 12/24/24 10:11 PREOP ONE Levonorgestrel 1 each 12/24/24 10:10 Levonorgestrel Iud (Liletta) INTRA-UTER 12/24/24 10:11 X1 ONE [facility] Medical History Wears glasses Anxiety Migraine headache Stroke/cerebrovascular accident Seizures Non-smoker Home Medications ?Medication ?Instructions ?Recorded ?Last Taken ?Type NK 12/02/24 Unknown History Allergy/AdvReac Type Severity Reaction Status Date / Time No Known Allergies Allergy Verified 12/24/24 08:40 Surgical History History of D&C History of Social History Smoking Status: Never smoker Review of Systems (Anesthesia) ROS Narrative System reviewed and no additional complaints, except as documented.
[2024-12-24 09:04] VITALS: BP 127/81; PULSE 74; RESP 16; TEMP 36.8; O2SAT 100
[2024-12-24 09:22] LABS: hCG Titer Quant., Serum 757 mIU/mL (<9 non-preg)
--- NOTE | 2024-12-24 09:54 | NURSING ---
Pt , surgery cancelled, Dr. Avalos spoke with pt. iv discharged.
== END 2024-12-24 19:00 | disposition home or self-care (01) ==
LOC: SDC 07-20 16:00
PROVIDERS: Anesthesiology; PCP Physician Assistant; Referring Provider Obstetrics & Gynecology; Visit Provider Obstetrics & Gynecology
PROC: 0UB98ZZ Excision of Uterus, Via Natural or Artificial Opening Endoscopic (ICD-10-PCS; CPT 58558; principal; 2024-12-24 09:55)
DX: Z01.818 Encounter for other preprocedural examination (principal)
CPT/HCPCS: 81025; 84702; 85027; A4216

== ENCOUNTER → 2024-12-27 | Outpatient (CLI) | payer BC, SELFPAY ==
[2024-12-27 18:11] LABS: hCG Titer Quant., Serum 1188 mIU/mL (<9 non-preg)
== END | disposition home or self-care (01) ==
PROVIDERS: PCP Physician Assistant; Referring Provider Obstetrics & Gynecology; Visit Provider Obstetrics & Gynecology
DX: Z32.01 Encounter for pregnancy test, result positive (principal); N92.1 Excessive and frequent menstruation with irregular cycle
CPT/HCPCS: 36415; 84702

== ENCOUNTER 2025-01-21 08:46 | Day surgery (SDC) | payer BC, SELFPAY ==
--- NOTE | 2025-01-19 12:58 | PCM.HP.BLA ---
History and Physical Date of Admission: 01/21/25 HPI: The patient is a 39 year old female presenting for pre-operative visit. She is scheduled for laparoscopic bilateral salpingectomy, and hysteroscopy D&C with possible polyp resection for sterilization request, endometrial polyps and incomplete spontaneous on 01/21/25. Procedure discussed along with risks, benefits and complications. Other alternatives discussed for management. Consent form signed? Yes. ? ? PAST MEDICAL HISTORY PAST MEDICAL HISTORYDiagnosisDate?Hypertension in , preeclampsia, severe, condition ([facility])12/03/2017?Pneumonia??during hospitalization for subarachnoid hemorrhage?Pneumonia of both lower lobes due to methicillin susceptible Staphylococcus aureus (MSSA) ([facility])01/24/2023? admit for SAH, intubated: 12/10/17 new RUL infiltrate which grew out MSSA on sputum culture. Had fever, WBC elevation to 29K. Treated with Cefepime x 3 days switched to Ancef for 4 days. Extubated 12/11/17?Post depression06/03/2018? eclampsia ([facility])11/27/2017?Right thyroid nodule05/03/2018?Seizure ([facility])12/09/2017?after subarachnoid hemorrhage?Subarachnoid hemorrhage ([facility])12/03/2017?6 days after . ? ? PAST SURGICAL HISTORY PAST SURGICAL HISTORYProcedureLateralityDate? DELIVERY ONLY?11/27/2017?D&C, DIAG AND/OR THERAPEUTIC???x 2 Elective TOP ? ? ? CURRENT MEDICATIONS No current outpatient medications on file.?No current facility-administered medications for this visit. ? ? ALLERGIES: Lidocaine ? PERSONAL HISTORY: SOCIAL HISTORY Social History?Tobacco Use?Smoking status:Never?Smokeless tobacco:NeverVaping Use?Vaping status:Never UsedSubstance Use Topics?Alcohol use:No?Drug use:No ? FAMILY HISTORY: FAMILY HISTORY FAMILY HISTORY ProblemRelationAge of Onset?HypertensionFather??HyperlipidemiaFather??AllergiesSister??CancerMaternal Grandmother?? adrenal?CancerPaternal Grandmother??DiabetesPaternal Aunt??DiabetesPaternal Aunt??DiabetesPaternal Uncle? ? ? REVIEW OF SYMPTOMS: GENERAL: denies fevers or chills ENDOCRINOLOGY: has not been on steroids Cardiology : denies palpitations or chest pain Respiratory: denies SOB or cough Hematology: denies history of prolonged bleeding or easy bruising or VTE Allergy: Denies history of personal or family history of allergy to anesthesia ? PHYSICAL EXAMINATION: ? VITALS: Last menstrual period 10/20/2024. ? GENERAL: The patient is well nourished, well hydrated in no acute distress. , The patient is oriented to time, place, and person. NECK: Supple. No lynphadenopathy, normal thyroid, no thyromegaly. LUNGS: Clear to auscultation bilaterally. no wheezes, rhonchi or rales HEART: Regular rate and rhythm, Normal heart sounds, and No murmurs or gallops ? IMPRESSION: incomplete sab, endometrial polyps and sterilization request ? PLAN: The risks/benefits/alternatives and personal involved for the planned hysteroscopy D&C with possible polyp resections and laparoscopic bilateral salpingectomy were reviewed with the patient. Her questions were answered to her satisfaction and she desires to proceed. Consent was signed. I reviewed with her postop instructions and expectations. ? ? I have reviewed and updated past medical and surgical history, medications and allergies Assessment & Plan Assessment/Plan (1) Endometrial polyp: (2) Sterilization: (3) Incomplete spontaneous :
[2025-01-21] VITALS (12 sets, daily range): BP systolic 115–136; BP diastolic 79–85; PULSE 57–88; RESP 16–18; TEMP 36.1–36.2; O2SAT 92–99; BMI 40.5
[2025-01-21] MEDS: Lactated Ringers 1,000 ML 15 ML IV (09:43)
[2025-01-21] MEDS: Doxycycline 100 MG CAPSULE 200 MG PO (09:44)
[2025-01-21] MEDS: Celecoxib 200 MG Capsule PO (09:44)
[2025-01-21] MEDS: Acetaminophen 500 MG Tablet 1000 MG PO (09:44)
--- NOTE | 2025-01-21 09:53 | PRE.ANES_ITS ---
ASA Classification* ASA Classification ASA Classification: 3 Assessment & Plan Anesthesia* Anesthesia Assessment Anesthesia Assessment: Discussed sedation and/or anesthesia options, risks, benefits, and alternatives with patient/parents/legal guardian/POA. Questions invited. The patient/parents/legal guardian/POA seems to understand and agrees to proceed with anesthesia plan. Reviewed the physical assessment, medical history, allergy history and patient home medications list prior to surgery/procedure/anesthetic and documented any changes. Performed airway and anesthesia risk assessments. Anesthesia Type Anesthesia Type: General (Rec.GLIDESCOPE) Anesthesia Focused Assessment* Temperature: 96.9 F Pulse Rate: 73 Blood Pressure: 136/82 Respiratory Rate: 16 Pulse Ox: 98 Airway Assessment Mouth opens: 2 cm Mallampati Score: III Focused Labs Anesthesia Preop lab: CBC WBC 7.8 K/mm3 (4.4-11.0) 12/24/24 08:35 12/24/24 RBC 4.05 M/mm3 (4.2-5.4) L 12/24/24 08:35 12/24/24 Hgb 11.6 g/dL (12.0-15.0) L 12/24/24 08:35 5 Hct 34.3 % (37-47) L 12/24/24 08:35 12/24/24 Plt Count 282 K/mm3 (150-450) 12/24/24 08:35 12/24/24 CHEMISTRY Potassium 3.8 mmol/L (3.5-5.1) 12/18/17 05:50 12/18/17 Sodium 142 mmol/L (136-145) 12/18/17 05:50 12/18/17 Magnesium 1.7 mg/dL (1.6-2.6) 12/03/17 13:45 12/03/17 BUN 15 mg/dL (7-18) 12/18/17 05:50 12/18/17 Creatinine 0.65 mg/dL (0.55-1.02) 12/18/17 05:50 12/18/17 Glucose 101 mg/dL (74-106) 12/18/17 05:50 12/18/17 COAG PT 13.1 SECONDS (11.7-14.9) 12/03/17 13:45 HCG, Quant 1188 mIU/mL (<9 non-preg) H 12/27/24 15:45 Urine Test Positive Negative H 12/24/24 08:15 5 Pre-Assessment Diagnosis/Proposed Procedure Planned Operative Procedure(s): TUBAL STERILIZATION LAP BILAT SALPINGECTOMY HYSTEROSCOPY D&C POSS POLYP RESECTION Anesthesia History 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 When Was Last Pacemaker Check QUESTION #4 FULL TEXT: You/Your Family Experience fever (hyperthermia) with Anesthesia Last Oral Intake Last Oral intake: Last Oral Intake NPO since 19:00 01/21/25 09:34 Meds taken in AM with sips of No 01/21/25 09:34 water? Meds patient instructed to take am of surgery PONV PONV - grain operations manager: PONV - grain operations manager Female Yes 01/20/25 16:01 HX of Motion Sickness No 01/20/25 16:01 HX of N/V After Surgery No 01/20/25 16:01 Non-Smoker Yes 01/20/25 16:01 Duration of Surgery greater Yes 01/20/25 16:01 than 60 minutes Number of Risk Factors 3 01/20/25 16:01 PONV Score Moderate Risk 01/20/25 16:01 Height & Weight Height & Weight: Anesthesia: Height & Weight Height 5 ft 6 in 01/21/25 09:34 Weight: 114 kg 01/21/25 09:34 Body Mass Index (BMI) 40.5 01/21/25 09:34 Respiratory Assessment Respiratory Assessment - grain operations manager: Respiratory Tract Infection Hx - grain operations manager Hx Respiratory Tract Infection No 01/20/25 16:01 STOP Sleep Apnea STOP Sleep Apnea - grain operations manager: STOP Sleep Apnea - grain operations manager Hx Hypertension Yes: NO MEDS FOR 6 YRS 01/20/25 16:01 Hx Sleep Apnea No 01/20/25 16:01 CPAP No 12/16/17 20:21 BIPAP No 12/16/17 20:21 Do you snore loudly (louder No 01/20/25 16:01 than talking or can be heard Do you often feel tired/ No 01/20/25 16:01 fatigued/ sleepy during daytime? Has anyone observed you stop No 01/20/25 16:01 breathing during sleep? STOP Results Negative 01/20/25 16:01 QUESTION #5 FULL TEXT : Do you snore loudly (louder than talking or can be heard through closed doors)? Tobacco Use History Tobacco Use History - grain operations manager: Tobacco Use History - grain operations manager Tobacco Use Smoking Status Never smoker 01/20/25 16:01 Hx Tobacco Use No 01/20/25 16:01 Years Smoking Packs Smoked per Day Smoking Cessation Date was within the last 15 years Hx Smoking Cessation Date Hx Smoking Cessation Counseling Hematologic Medial History Hematologic Hx - grain operations manager: Hematologic Medical Hx - director export Hx of Blood Transfusion No 01/20/25 16:01 Hx of Transfusion in last 3 No 01/20/25 16:01 Months Date of Last Transfusion (if within last 3 months) Ever experience any problems No 01/20/25 16:01 with transfusion(s)? Specify any problems Hx of Preganancy in last 3 No 01/20/25 16:01 Months Nurse Filling Out Transfusion DSCHRIBER 01/20/25 16:01 & Questions: Date: 01/20/25 01/20/25 16:01 Time: 16:03 01/20/25 16:01 Patient unable to answer at this time (ie. confused, unrespo /Reproduction History /Reproductive History - grain operations manager: /Reproductive Hx- grain operations manager Hx Now No 01/20/25 16:01 Gestational Age (in weeks): EDC: Hx Hx Para Hx Section SAB No 01/20/25 16:01 Active Medications Active Medications: Current Medications Generic Name Dose Route Start Last Admin Trade Name Freq PRN Reason Stop Dose Admin Acetaminophen 1,000 mg 01/21/25 11:00 01/21/25 09:44 Acetaminophen 500 Mg Tablet PO 01/21/25 11:01 1,000 mg X1 ONE Administration Celecoxib 200 mg 01/21/25 11:00 01/21/25 09:44 Celecoxib 200 Mg Capsule PO 01/21/25 11:01 200 mg X1 ONE Administration Doxycycline Monohydrate 200 mg 01/21/25 10:00 01/21/25 09:44 Doxycycline 100 Mg Capsule PO 01/21/25 10:01 200 mg X1 ONE Administration Cefazolin Sodium 2 gm/ Sodium 110 mls @ 150 mls/hr 01/21/25 11:00 Chloride IV 01/21/25 11:43 INTRAOP ONE Lactated Ringer's 1,000 mls @ 15 mls/hr 01/21/25 09:00 01/21/25 09:43 IV 15 mls/hr .Q48H SHIRA Administration PFSH Medical History Low iron Easy bruising Complete miscarriage Wears glasses Anxiety Migraine headache Stroke/cerebrovascular accident Seizures Non-smoker Home Medications ?Medication ?Instructions ?Recorded ?Last Taken ?Type NK 12/02/24 Unknown History Allergy/AdvReac Type Severity Reaction Status Date / Time No Known Allergies Allergy Verified 01/21/25 09:30 Surgical History History of D&C History of Social History Smoking Status: Never smoker Review of Systems (Anesthesia) ROS Narrative System reviewed and no additional complaints, except as documented.
[2025-01-21 09:59] LABS: Hematocrit 31.6 % (37-47); Hemoglobin 10.6 g/dL (12.0-15.0); Mean Corp Hgb Conc 33.5 g/dL (32-36); Mean Corpuscular Hgb 28.4 pg (27.0-32.0); Mean Corpuscular Volume 84.7 fL (81-99); Mean Platelet Vol. 9.2 fl (6.2-12.0); Platelet Count 274 K/mm3 (150-450); RBC Distribution Width CV 13.9 % (11.6-14.6); RBC Distribution Width SD 42.9 fl (35.1-43.9); Red Blood Count 3.73 M/mm3 (4.2-5.4); White Blood Count 7.4 K/mm3 (4.4-11.0)
[2025-01-21 10:01] LABS: Prothrombin Time (Protime)PT. 13.2 SECONDS (11.7-14.9)
[2025-01-21 10:03] LABS: Partial Thromboplast Time 26.1 Seconds (24.1-36.2)
[2025-01-21 10:12] LABS: Internal QC Validated? YES +Cl - CLEAR BKGD
[2025-01-21 10:17] LABS: Pregnancy, Serum, hCG Quali. POSITIVE Negative
[2025-01-21 10:35] LABS: AST(SGOT) 19 U/L (<=31); Alanine Aminotransfer ALT/SGPT 18 U/L (<=34); Albumin, Serum 4.1 g/dL (3.5-5.0); Alkaline Phosphatase 55 U/L (35-104); Bilirubin, Direct 0.24 mg/dL (0.00-0.30); Globulin 3.1 g/dL (2.2-4.2); Protein, Total 7.1 g/dL (5.9-8.4); Total Bilirubin 0.41 mg/dL (0.00-1.30)
[2025-01-21] MEDS: Cefazolin 2 GM in 0.9% Normal Saline (100mL Bag) 100 ML IV (10:44)
--- NOTE | 2025-01-21 10:44 | PCM.DC ---
Discharge Instructions Diet Discharge Diet: No restrictions (Increase fluid intake for the next 48 hours.) DC O2, CPAP, BIPAP needs Home O2 Discharge instructions: No Dressing / Incision Discharge Activity: May Shower and May Take a Tub Bath (in 1 week) Return to work on:: 01/25/25 May shower in (days): 1 May resume sexual activity in: 1-2 weeks Additional Activity Instructions:: Ambulate often the next week after surgery. Nothing in your vagina for 2 weeks Dressing / Incision Call your doctor if your incision/area has: Continuous Slow Oozing, Sudden Increased Bleeding, Increased Pain/ Swelling, Increased Redness and Foul Smelling Discharge Call your doctor if you observe: Fever of 101 or Higher and Using more than 1 pad per hour Cleanse incision/area with: Soap & Water (Your incisions have skin glue, it can get wet. Use soap and water and leave it on for 10 days. ) Additional Dressing/Incision Instructions:: Take a urine test in 3 weeks, if it is positive let us know. Follow Up Care Please Follow Up With: Shanika Avalos MD When: You do not need a postop appointment. Call [phone] or send a [employer] message as needed for questions Test Results: Test results from this visit will be discussed in further detail at your follow-up appointment, if applicable. Discharge Plan Admission Primary Reason for Your Visit: Tubal and hysteroscopy D&C Attending Provider: Shanika Avalos Primary Care Provider: Jasmeet Watt Instructions Print Language: Bots[place]an Discharge Orders/Prescriptions Prescriptions: New ibuprofen 600 mg tablet 600 mg PO Q6H PRN (Reason: Pain) 20 Days Qty: 60 1RF oxycodone 5 mg tablet 5 mg PO Q6H PRN PRN (Reason: severe pain) 7 Days Qty: 5 0RF Referrals / Follow Up: Jasmeet Watt, PA [Primary Care Provider] - Disposition Disposition (needs filled in before D/C Order can be placed): Home, Self Care
--- NOTE | 2025-01-21 11:00 | FALS_PTH ---
PATIENT: MASOUD HINSON LOC: [facility] [place] U#:[id number] AGE/SX: 39/F ROOM: RE01/21/[address]: Dr. Shanika Avalos MD : 1985 BED: DIS: 01/21/2025 SPEC #: [id number] RECD: 01/21/25 13:26 STATUS: ANÍBAL REHemanth #: [id number] LOTTIE: 01/21/25 11:[address]: Shanika Avalos DEPT: SURGICAL PATHOLOGY RECD BY: Kenton Ramos ENTERED: 01/21/25 14:34 SP TYPE: FALL TUBES OTHR DR: NATALIYA Hernandez Tissues: A - Fallopian tube B - Endometrium, NOS Procedures: Surgery Specimen Level II Surgery Specimen Level IV HEADER OPERATION: Laparoscopic, bilateral salpingectomy PRE-OP DIAGNOSIS: Endometrial polyp, sterilization, incomplete spontaneous TISSUE SUBMITTED: A- Bilateral fallopian tubes, B- Endometrial curettings MICROSCOPIC DIAGNOSIS A. Fallopian tubes, sterilization, bilateral salpingectomy: * Complete luminal cross-section confirmed x2. B. Endometrial lining, dilation and curettage: * Fragments of secretory endometrium, squamous cervical mucosa, endocervical mucosa, and smooth muscle, mixed with abundant blood clot. MICROSCOPIC DESCRIPTION Slides are reviewed. GROSS DESCRIPTION A. Received in formalin in a container labeled with the patient's name, date of , and bilateral fallopian tubes are 2 unoriented fallopian tube segments, one appearing intact, and the other previously disrupted. The intact fallopian tube segment is 5 cm in length by 0.8 cm in diameter. The serosa is purple-rooney with multiple paratubal cysts ranging from 0.1 to 0.2 cm in greatest dimension. Sectioning reveals a pinpoint lumen. The previously disrupted fallopian tube is received in 3 segments; the first is 2.5 x 1.0 cm with an unremarkable fimbriated end, the second is a 2.3 x 0.7 cm, and the third is 1.5 x 0.5 cm. Each displays purple-rooney, smooth and glistening serosa with multiple paratubal cysts ranging from 0.3 to 0.8 cm in greatest dimension. Serial sections reveal a pinpoint lumen. Lard Maker sections:A1. Intact fallopian tube segmentA2. Disrupted fallopian tube segment B. Received in formalin in a container labeled with the patient's name, date of , and endometrial curettings is possible das soft tissue admixed with an abundance of red-brown blood clot material measuring 5.0 x 4.0 x 1.5 cm in aggregate. Submitted in toto in B1-10. [facility] 01-24-2025 CPT:27571,59271
[2025-01-21] MEDS: Bupivacaine Mpf 0.5% 30 ML VIAL (11:25)
--- NOTE | 2025-01-21 11:39 | PCM.OPRPT ---
Problems Associated Problem List Diagnoses (1) Incomplete spontaneous : (2) Sterilization: (3) Endometrial polyp: Operative Report (Standard) Operative Information Date of Procedure: 01/21/25 Pre-Operative Diagnosis: endometrial polyp, incomplete sab, sterilization request Post-Operative Diagnosis: same Surgery/Procedure Performed: hysteroscopy D&C , laparoscopic bilateral salpingectomy turkey pinner: Yes [employer] Consultant: Benny MONTERO Tasks completed by first officer and flight instructor: Closing and Retracting Additional medical assistant float?: No Type of Anesthesia: General RN Documented Start/Stop Times: Operation Date: 01/21/25 11:00 Case Time Into Pre-Op 01/21/25 08:58 Procedure Start Time: 11:05 Procedure Stop Time: 11:31 Select all DRAINS/GRAFTS/IMPLANTS that apply: None Estimated Blood Loss: 30 Fluids Replaced: 1000 Specimen collected: Yes Description of specimen(s) removed: endometrial curettings, bilateral fallopian tubes Description of surgery: The patient was taken to the operating room where she was prepped and draped in the dorsolithotomy position. A weighted speculum was placed in the vagina and the anterior lip of the cervix was grasped with a tenaculum. The uterine manipulator was placed and the remainder of the instruments were removed from the vagina. Attention was turned to the abdomen. All port sites were infiltrated with 0.5% Marcaine before skin incisions were made. A 5 mm intraumbilical incision was made. The anterior abdominal wall was tented up with 2 towel clamps while a 5 mm blade less trocar and sleeve were directly inserted. Intraperitoneal placement was confirmed with the laparoscope. The pneumoperitoneum was created and the underlying abdominal contents were intact. The patient was placed in Trendelenburg. Right and left lower quadrant ports were placed under direct visualization lateral to the inferior epigastric vessels. The bowel was swept away and the above findings were noted. The Enseal device was used to clamp seal and transect the antimesenteric portions of the right tube to the cornual insertion of the uterus. The tube was amputated from the uterus and the pedicles were all confirmed to be hemostatic. The same procedure was performed on the contralateral side. The specimens were brought out through a 5 mm port. The pedicles were again examined and found to be hemostatic. The lateral ports were removed under direct visualization and no active bleeding was noted. The pneumoperitoneum was released. The skin incisions were closed with Monocryl suture in a subcuticular fashion and skin glue. The hysteroscopy was then performed and no obvious polyps were noted. A gentle sharp curettage was done and removed some clots and possible retained products of conception. The hysteroscope was replaced and again no obvious products of conception or polyps were noted. A gentle sharp curettage was done of the entire cavity and uterine cry was appreciated. There is no active bleeding from the cervical os. There is no bleeding from the tenaculum site. The vaginal instruments were removed and the vaginal sweep was completed by me. The procedure was performed by me with assistance other than as dictated above. All sponge and needle counts were correct and the patient was taken to the recovery room in stable condition. Hysteroscopic fluid deficit 200 cc of normal saline. Surgical Findings: normal cervix and tubes, enlarged boggy uterus, normal ovaries Complications Complications: No Admit VTE Documentation VTE Present on Admission: No VTE Mechan Device Prophylaxis: SCD's VTE Pharm Prophylaxis ordered?: No
--- NOTE | 2025-01-21 11:49 | PCM.POST.ANE ---
Anesthesia: Postop Eval I Current Vital Signs Temperature: 97.2 F Pulse Rate: 87 Blood Pressure: 122/84 Respiratory Rate: 18 Pulse Ox: 99 Assessment Airway patent: Yes Spontaneous unlabored respirations: Yes nausea: No Vomiting: No Anesthesia Complication: No Fluid Hydration Crystalloid volume administer (ml): 1,000 Total IV fluid infused: 1,000 Progress Note Anesthesia document: Postop Eval 1 completed: Yes
--- NOTE | 2025-01-21 12:22 | POSTOPAN2_ITS ---
Anesthesia Postop Eval I Sum Postop Eval Completion status Anesthesia document: Postop Eval 1 completed: Yes Anesthesia Postop Eval I Summary Anesthesia Postop Eval I Summary: Anesthesia Postop Eval I: Assessment Summary Airway patent Yes 01/21/25 11:49 MEDICINE ASSISTANT.CSIR Spontaneous unlabored Yes 01/21/25 11:49 MEDICINE ASSISTANT.CSIR respirations Mental status nausea No 01/21/25 11:49 MEDICINE ASSISTANT.CSIR Vomiting No 01/21/25 11:49 MEDICINE ASSISTANT.CSIR Anesthesia Postop Eval I: Fluid Summary Crystalloid volume administer 1,000 01/21/25 11:49 MEDICINE ASSISTANT.CSIR (ml) Colloids volume administered ( ml) Blood Product volume administered (ml) Total IV fluid infused 1,000 01/21/25 11:49 MEDICINE ASSISTANT.CSIR Anesthesia Postop Eval I: Summary Notes Anesthesia Complication No 01/21/25 11:49 MEDICINE ASSISTANT.CSIR Anesthesia Complication Comment: Post-operative progress note Anesthesia: Postop Eval II Evaluation Mental status: Awake Pain Level: 0 nausea: No Vomiting: No
--- NOTE | 2025-01-21 12:22 | PCM.POSTANE2 ---
Anesthesia Postop Eval I Sum Postop Eval Completion status Anesthesia document: Postop Eval 1 completed: Yes Anesthesia Postop Eval I Summary Anesthesia Postop Eval I Summary: Anesthesia Postop Eval I: Assessment Summary Airway patent Yes 01/21/25 11:49 VARNISHER.CSIR Spontaneous unlabored Yes 01/21/25 11:49 VARNISHER.CSIR respirations Mental status nausea No 01/21/25 11:49 VARNISHER.CSIR Vomiting No 01/21/25 11:49 VARNISHER.CSIR Anesthesia Postop Eval I: Fluid Summary Crystalloid volume administer 1,000 01/21/25 11:49 VARNISHER.CSIR (ml) Colloids volume administered ( ml) Blood Product volume administered (ml) Total IV fluid infused 1,000 01/21/25 11:49 VARNISHER.CSIR Anesthesia Postop Eval I: Summary Notes Anesthesia Complication No 01/21/25 11:49 VARNISHER.CSIR Anesthesia Complication Comment: Post-operative progress note Anesthesia: Postop Eval II Evaluation Mental status: Awake Pain Level: 0 nausea: No Vomiting: No
[2025-01-21 12:45] LABS: hCG Titer Quant., Serum 68 mIU/mL (<9 non-preg)
== END 2025-01-21 14:28 | disposition home or self-care (01) ==
LOC: SDC 08:50 → AC 08:51
PROVIDERS: Anesthesiology; PCP Physician Assistant; Referring Provider Obstetrics & Gynecology; Visit Provider Obstetrics & Gynecology
PROC: (CPT 58661; principal; 2025-01-21 10:45)
PROC: 0UB98ZZ Excision of Uterus, Via Natural or Artificial Opening Endoscopic (ICD-10-PCS; CPT 58558; 2025-01-21 10:45)
DX: Z30.2 Encounter for sterilization (principal); N84.0 Polyp of corpus uteri; O03.4 Incomplete spontaneous abortion without complication
CPT/HCPCS: 58558; 58661; 00952; 80076; 84702; 84703; 85027; 85610; 85730; 86850; 86900; 86901; 88302; 88305; J2405